=== PATIENT | male | born 1935 | race Caucasian/White ===

== ENCOUNTER 2020-06-09 12:53 | Observation (INO) | payer MEDICARE, SELFPAY ==
[2020-06-09 12:59] VITALS: BP 144/108; PULSE 73; RESP 20; TEMP 37; O2SAT 97
[2020-06-09 13:59] LABS: Basophils Absolute Auto 0.1 K/mm3 (0.0-0.1); Basophils Percent Auto 0.6 % (0.2-1.2); Eosinophils Absolute Auto 0.3 K/mm3 (0-0.3); Eosinophils Percent Auto 3.1 % (0-4.4); Hematocrit 35.3 % (42.0-52.0); Hemoglobin 11.9 g/dL (14.0-18.0); Immature Granulocyte Absolute 0.02 K/mm3 (0.00-0.031); Immature Granulocyte Percent A 0.2 % (0-0.5); Lymphocytes Absolute Auto 1.89 K/mm3 (0.9-3.2); Lymphocytes Percent Auto 20.2 % (18.3-44.2); Mean Corpuscular HGB Conc 33.7 g/dl (32-36); Mean Corpuscular Hemoglobin 32.5 pg (26-34); Mean Corpuscular Volume 96.4 fl (80-100); Mean Platelet Volume 11.4 fl (7.4-10.4); Monocytes Absolute Auto 0.8 K/mm3 (0.1-0.6); Monocytes Percent Auto 8.4 % (2.6-8.5); Neutrophils Absolute Auto 6.3 K/mm3 (1.3-6.7); Neutrophils Percent Auto 67.5 % (45.5-73.1); Platelet Count Result 146 k/mm3 (150-375); Red Blood Count 3.66 M/mm3 (4.6-6.20); Red Cell Distribution Width 12.7 % (11.5-14.5); White Blood Count 9.4 K/mm3 (4.5-10.0)
[2020-06-09] MEDS: SODIUM CHLORIDE 0.9% IV 500 ML 999 ML IV CONT (13:59)
[2020-06-09] MEDS: ceFAZolin SODIUM 1 GM VIAL IV PUSH (13:59)
[2020-06-09 14:15] LABS: Alanine Aminotransferase 18 U/L (4-50); Albumin Level 4.3 g/dL (3.5-5.1); Alkaline Phosphatase 98 U/L (38-126); Anion Gap 7 mmol/L (8-16); Aspartate Amino Transferase 31 U/L (17-59); Bilirubin,Total 0.5 mg/dL (0.2-1.3); Blood Urea Nitrogen 19 mg/dL (9-20); CRP 1.9 mg/dL (<1.0); Carbon Dioxide 26 mmol/L (22-30); Chloride 101 mmol/L (98-107); Estimated CRCL calculation 64 ml/min; Estimated Glomerular Filt Rate > 60; Glucose 107 mg/dL (75-110); Potassium 4.4 mmol/L (3.4-5.0); Sodium 134 mmol/L (137-145)
--- NOTE | 2020-06-09 14:51 | PC.NURSE ---
MANSOOR SHAFER AT BEDSIDE TO NUMB PT FINGER.
[2020-06-09 15:13] VITALS: BP 157/98; PULSE 78; RESP 16; O2SAT 100
--- NOTE | 2020-06-09 15:36 | ED.SKABFB ---
HPI - Skin/Abscess/Foreign Bdy General Chief complaint: Skin/Abscess/Foreign Body <Stephen Purdy PA-C - Last Filed: 06/09/20 15:39> Stated complaint: Blister to Finger <MIGUEL Tyler Last Filed: 06/09/20 15:39> Time Seen by Provider: 06/09/20 13:07 <MIGUEL Tyler Last Filed: 06/09/20 15:39> Source: patient <MIGUEL Tyler Last Filed: 06/09/20 15:39> Mode of arrival: ambulatory <MIGUEL Tyler Last Filed: 06/09/20 15:39> Limitations: no limitations <MIGUEL Tyler Last Filed: 06/09/20 15:39> History of Present Illness HPI narrative: Patient is an 84-year-old male who presents to emergency department for evaluation of infected left finger patient notes red tender swollen area involving the proximal phalanx of the right index finger patient was seen over the weekend started on Keflex but continues to have redness swelling and now streaking up the arm. Patient notes some purulent drainage from the wound. Patient denies fever or immunocompromise <MIGUEL Tyler Last Filed: 06/09/20 15:39> Related Data Home medications: Home Medications Medication Instructions Recorded Confirmed Ca cmb no.[id number]-[id number] tablet PO 06/09/20 [Vitamin D-3 with Aloe] atorvastatin 20 mg PO DAILY 06/09/20 06/09/20 losartan 50 mg PO DAILY 06/09/20 06/09/20 memantine [Namenda Titration Luc] 0 ea PO BID 06/09/20 metoprolol succinate 12.5 mg PO DAILY 06/09/20 06/09/20 omeprazole 40 mg PO DAILY 06/09/20 06/09/20 vitamin B complex [B 1 tablet PO DAILY 06/09/20 06/09/20 Complex-Vitamin B12] vitamins A,C,[id number] [ICaps 1 tablet PO ONCE 06/09/20 06/09/20 AREDS] <MIGUEL Tyler Last Filed: 06/09/20 15:39> Allergies/Adverse reactions: Allergies Allergy/AdvReac Type Severity Reaction Status Date / Time ibuprofen Allergy Unknown Rash Verified 06/09/20 13:03 naproxen Allergy Unknown Rash Verified 06/09/20 15:43 Sulfa (Sulfonamide Allergy Unknown Unknown Verified 06/09/20 13:03 Antibiotics) floxacin AdvReac Rash Uncoded 06/09/20 18:19 <Stephen Purdy PA-C - Last Filed: 06/09/20 15:39> Review of Systems Review of Systems: All systems reviewed & are unremarkable except as noted in HPI and below <Stephen Purdy PA-C - Last Filed: 06/09/20 15:39> PMFSH Past Medical History Medical History: Medical History (Updated 06/09/20 @ 15:39 by Stephen Purdy PA-C) Hypertension <Stephen Purdy PA-C - Last Filed: 06/09/20 15:39> Social History Social History: Social History (Updated 06/09/20 @ 15:37 by Stephen Purdy PA-C) Smoking status: Former smoker Tobacco type: cigarettes Second hand tobacco smoke exposure: No Alcohol intake: current Substance use: never Gender identity (if verbalized by the patient): Male Sexual Orientation (if Verbalized by the Patient): Straight or Heterosexual Spiritual care concerns: No <MIGUEL Tyler Last Filed: 06/09/20 15:39> Exam Narrative: Exam Narrative: GENERAL: Well-appearing, well-nourished, and in no acute distress. HEAD: Normocephalic, atraumatic. EYES: PERRLA and EOMI. ENT: Nares clear, no rhinorrhea or epistaxis. Mucous membranes moist. EXTREMITIES: Normal range of motion. No edema. SKIN: Warm, dry, no rash. Swollen red tender right index finger involving the proximal phalanx with drainage centrally lymphangitic streaking up to the mid forearm NEURO: No focal deficits. Alert and oriented x3. Neurovascularly intact PSYCH: Normal mood and affect. <MIGUEL Tyler Last Filed: 06/09/20 15:39> Course Course Emergency Course: Patient's finger was drained in the emergency department with I&D performed packing placed given IV antibiotic will be brought in for IV antibiotics given the failed outpatient therapy <Stephen Purdy PA-C - Last Filed: 06/09/20 15:39> MARKETING ASSISTANT MANAGER/PA Physician Supervision
[2020-06-09 17:07] VITALS: BP 157/98; PULSE 78; RESP 16; O2SAT 100
--- NOTE | 2020-06-09 17:17 | ADMGEN ---
This patient, Alfredo Morrissey, was admitted to 3 [facility] Surg Room 307-01. Patient/family oriented to hospital policies and general routines including ID bracelet, bed and alarms, visiting hours, pain management, procedures, bathroom and other care routines, personal items, smoking policy, room service/diet, and visiting hours. Valuables list has been completed. Information on how to activate the Rapid Response Team has been discussed. Patient/Family are encouraged to report perceived risks to care and to ask questions if they do not understand what they are told or what they should do.
[2020-06-09 17:29] VITALS: BMI 23.5
[2020-06-09] MEDS: LACTATED RINGERS 1,000 ML 75 ML IV CONT (19:01)
--- NOTE | 2020-06-09 21:21 | PM.IMHP ---
H&P: HPI History of Present Illness Date/Time: 06/09/20 21:21 Chief complaint: worsening finger infection Narrative: Alfredo Morrissey is a 84 year old male with a past medical history of dementia and hypertension who presented to the ER for evaluation of worsening infection in his left index finger. The patient had been evaluated at urgent care over the weekend and was started on Keflex for cellulitis. But back his finger has become more erythematous and swollen. He is streaking up the arm and drainage from the wound. He denies any fevers or chills. He reported that the wound started as a little pimple with some mild surrounding erythema. the pustule popped and he had some purulence drainage. The next day he went to urgent care (3 days ago) and received a prescription for Keflex. he initially thought his finger was doing better for the next 24 hours but then it became more erythematous any decided to come in to the ER. He denies any known injury to his and. he denies a history of recurrent infections. Otherwise he has been in his usual state of health. He does have chronic memory loss/ dementia. Patient is a relatively good historian regarding recent events but is unable to provide much history such as is family history. the patient had some moderate associated pain with the area of abscess that has improved. He still has some localized pain directly around area of erythema. Overall he reports that he feels much better. Prior to the abscess being drained any movement of the finger caused increased pain. Review of Systems Review of Systems: Narrative: 12 systems were reviewed with pertinent positives and negatives per HPI. Except as documented in the HPI, all other systems were reviewed and are negative. [facility] Past Medical History Medical History (Updated 06/10/20 @ 03:14 by Roseann Wills DO) Dementia GERD (gastroesophageal reflux disease) Hyperlipidemia Hypertension Left cataract maturing Surgical History Surgical History (Updated 06/10/20 @ 03:14 by Roseann Wills DO) History of left inguinal hernia repair History of umbilical hernia repair Status post cataract extraction and insertion of intraocular lens of right eye Family History Family History Mother Age older than 80 years Father MVA (motor vehicle accident) His father 2 months before patient was born. Social History Social History (Updated 06/10/20 @ 03:12 by MALOU Tam Social History: Primary care physician: Dr. Case Jacobsen Surrogate decision maker: Joanne Vaz (significant other) Smoking packs per day: 1 Smoking cigarettes per day: 20.0 Years smoked: 15 Smoking pack-years: 15.00 Smoking status: Former smoker Tobacco type: cigarettes Second hand tobacco smoke exposure: No Alcohol intake: current Alcohol use details: He rarely drinks alcohol. Substance use: never Additional living arrangements comments: He is but lives with his long-term girlfriend of the last 30 years. He has 2 adult children who are healthy. 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 His undergraduate degree was in math. His master's degree was in Estonian. Gender identity (if verbalized by the patient): Male Sexual Orientation (if Verbalized by the Patient): Straight or Heterosexual Spiritual care concerns: No Meds Home Medications and Allergies Home Medications Medication Instructions Recorded Confirmed Type Ca cmb no.[id number]-N-[id number]-aloe 1 tablet PO DAILY 06/09/20 06/09/20 History [Vitamin D-3 with Aloe] atorvastatin 20 mg PO DAILY 06/09/20 06/09/20 History cephalexin 500 mg PO BID 06/09/20 06/09/20 History losartan 25 mg PO DAILY 06/09/20 06/09/20 History memantine 10 mg PO BID 06/09/20 06/09/20 History metoprolol succinate 12.5 mg PO DAILY 06/09/20 06/09/20 History
[2020-06-09] MEDS: FAMOTIDINE 20 MG/2 ML VIAL IV PUSH (21:34)
[2020-06-09 22:00] VITALS: BP 112/65; PULSE 56; RESP 20; TEMP 36.6; O2SAT 99
[2020-06-10] VITALS (7 sets, daily range): BP systolic 110–138; BP diastolic 58–79; PULSE 55–73; RESP 16–20; TEMP 36.7–37; O2SAT 95–99
[2020-06-10 06:48] LABS: Basophils Percent Auto 0.6 % (0.2-1.2); Eosinophils Absolute Auto 0.3 K/mm3 (0-0.3); Hematocrit 32.9 % (42.0-52.0); Hemoglobin 11.1 g/dL (14.0-18.0); Immature Granulocyte Absolute 0.04 K/mm3 (0.00-0.031); Immature Granulocyte Percent A 0.6 % (0-0.5); Immature Platelet Fraction Pct 7.1 % (0.9-11.2); Lymphocytes Absolute Auto 1.72 K/mm3 (0.9-3.2); Lymphocytes Percent Auto 23.7 % (18.3-44.2); Mean Corpuscular HGB Conc 33.7 g/dl (32-36); Mean Corpuscular Hemoglobin 32.4 pg (26-34); Mean Corpuscular Volume 95.9 fl (80-100); Mean Platelet Volume 11.5 fl (7.4-10.4); Monocytes Absolute Auto 0.6 K/mm3 (0.1-0.6); Monocytes Percent Auto 7.9 % (2.6-8.5); Neutrophils Absolute Auto 4.6 K/mm3 (1.3-6.7); Neutrophils Percent Auto 63.2 % (45.5-73.1); Platelet Count Result 149 k/mm3 (150-375); Red Blood Count 3.43 M/mm3 (4.6-6.20); Red Cell Distribution Width 12.6 % (11.5-14.5); White Blood Count 7.3 K/mm3 (4.5-10.0)
[2020-06-10] MEDS: FAMOTIDINE 20 MG/2 ML VIAL IV PUSH ×2 (08:46→21:24)
[2020-06-10] MEDS: OPTI-GEN TAB 1 TABLET PO ×2 (08:46→16:30)
[2020-06-10] MEDS: ATORVASTATIN 20 MG TABLET PO (08:46)
[2020-06-10] MEDS: PANTOPRAZOLE 40 MG TABLET PO ×2 (08:46→16:30)
[2020-06-10] MEDS: MEMANTINE 10 MG TABLET PO ×2 (08:46→16:30)
[2020-06-10] MEDS: VITAMIN B COMPLEX CAPSULE 1 CAP PO (08:47)
[2020-06-10] MEDS: ENOXAPARIN 40 MG/0.4 ML SYRINGE SUB-Q (08:50)
[2020-06-10] MEDS: METOPROLOL SUCCINATE EXT REL 12.5 MG TABCR PO (10:01)
--- NOTE | 2020-06-10 15:38 | PM.IMPN ---
Progress Note: A&P Assessment and Plan (1) Abscess of finger: Code(s): L02.519 - Cutaneous abscess of unspecified hand Status: Acute Assessment and Plan: The patient presented with cellulitis with abscess of the right index finger on the dorsal aspect of the proximal phalange with associated streaking up the right arm. He failed outpatient keflex therapy. He underwent I&D in the emergency department and was subsequently admitted for IV antibiotics. WBC was normal at 9,400 at admission and improving. Erythema is improving with no further streaking although he does have mild erythema and warmth surrounding the site of I&D. He reports that his pain and swelling are improving. He is afebrile. I believe he will benefit from continued IV cefazolin overnight with hopeful discharge tomorrow on PO antibiotics. Continue to monitor. (2) Essential hypertension: Code(s): I10 - Essential (primary) hypertension Status: Chronic Assessment and Plan: Blood pressures were reviewed and are reasonably controlled. Continue losartan and metoprolol. Subjective Date/time seen: 06/10/20 15:38 Interval history: Mr. Morrissey is a very pleasant 84 y.o. male who is seen in follow-up for cellulitis with abscess of the right index finger s/p I&D in the emergency department. He reports improvement in his erythema, pain, and swelling. He denies fever, chills, nausea, vomiting, and weakness. He has no other concerns. Review of Systems Review of Systems: All systems reviewed & are unremarkable except as noted in HPI and below Exam Narrative: Exam Narrative: General: Very pleasant, elderly, well-developed 84 y.o. male ambulating in the room talking to his significant other in no acute distress. HEENT: Normocephalic and atraumatic. Oral mucosa moist. Neck: Supple. Cardiac: Regular rate and rhythm. S1 and S2 normal. Lungs: Lungs clear to auscultation. Abdomen: Normoactive bowel sounds. Abdomen protuberant but soft, non-distended, and non-tender. Musculoskeletal: No joint erythema, swelling, or tenderness. ROM within normal limits. Extremities: No lower extremity edema or calf tenderness. Neurological: Alert. Exam non-focal to casual conversation. Speech is clear. Skin: Warm and dry. Superficial incision at site of I&D open with no further purulence expressed. Mild erythema and calor surrounding opening at finger with no further streaking. Psychiatric: Judgment and insight intact. Pleasant mood and appropriate affect. Objective Data Vital Signs Vital Signs: Vital Signs - 24 hr 06/09/20 17:07 06/09/20 22:00 06/10/20 02:00 Temperature 97.8 F 98.2 F Pulse Rate 78 56 L 64 Respiratory Rate 16 20 20 Blood Pressure 157/98 H 112/65 120/58 L Pulse Oximetry 100 99 98 06/10/20 06:00 06/10/20 08:00 06/10/20 10:01 Temperature 98.6 F 98.0 F Pulse Rate 73 57 L 60 Respiratory Rate 16 16 Blood Pressure 110/58 L 130/69 Pulse Oximetry 98 95 06/10/20 12:00 Temperature 98.0 F Pulse Rate 55 L Respiratory Rate 18 Blood Pressure 138/79 Pulse Oximetry 97 Intake/Output Intake/Output: Intake & Output 06/07/20 06/08/20 06/09/20 06/10/20 23:59 23:59 23:59 23:59 Intake Total 1000 1320 Balance 1000 1320 Meds/Results Medications: Active Medications Generic Name Dose Route Start Last Admin Trade Name Freq PRN Reason Stop Dose Admin Acetaminophen 650 mg 06/09/20 21:27 Tylenol Tablet PO Q4H PRN Headache Atorvastatin Calcium 20 mg 06/10/20 09:00 06/10/20 08:46 Lipitor PO 20 mg DAILY REMI Administration Enoxaparin Sodium 40 mg 06/10/20 09:00 06/10/20 08:50 Lovenox SUB-Q 40 mg DAILY REMI Administration Famotidine 20 mg 06/09/20 21:00 06/10/20 08:46 Pepcid Iv IV PUSH 20 mg Q12HR REMI Administration Lactated Ringer's 1,000 mls @ 75 mls/hr 06/09/20 15:40 06/09/20 19:01 Lr - Lactated Ringers Iv IV CONT 75 mls/hr .[id number] REMI Administratio
[2020-06-11 02:00] VITALS: BP 121/68; PULSE 53; RESP 20; TEMP 36.9; O2SAT 99
[2020-06-11 06:00] VITALS: BP 119/71; PULSE 53; RESP 20; TEMP 36.9; O2SAT 99
[2020-06-11 07:02] LABS: Hematocrit 32.7 % (42.0-52.0); Hemoglobin 11.1 g/dL (14.0-18.0); Mean Corpuscular HGB Conc 33.9 g/dl (32-36); Mean Corpuscular Hemoglobin 32.4 pg (26-34); Mean Corpuscular Volume 95.3 fl (80-100); Mean Platelet Volume 11.8 fl (7.4-10.4); Platelet Count Result 134 k/mm3 (150-375); Red Blood Count 3.43 M/mm3 (4.6-6.20); Red Cell Distribution Width 12.5 % (11.5-14.5); White Blood Count 6.8 K/mm3 (4.5-10.0)
[2020-06-11] MEDS: ATORVASTATIN 20 MG TABLET PO (08:32)
[2020-06-11] MEDS: ENOXAPARIN 40 MG/0.4 ML SYRINGE SUB-Q (08:32)
[2020-06-11] MEDS: METOPROLOL SUCCINATE EXT REL 12.5 MG TABCR PO (08:33)
[2020-06-11] MEDS: MEMANTINE 10 MG TABLET PO (08:33)
[2020-06-11] MEDS: LOSARTAN POTASSIUM 25 MG TABLET PO (08:33)
[2020-06-11] MEDS: FAMOTIDINE 20 MG/2 ML VIAL IV PUSH (08:33)
[2020-06-11] MEDS: PANTOPRAZOLE 40 MG TABLET PO (08:33)
[2020-06-11] MEDS: VITAMIN B COMPLEX CAPSULE 1 CAP PO (08:33)
[2020-06-11] MEDS: OPTI-GEN TAB 1 TABLET PO (08:33)
--- NOTE | 2020-06-11 10:06 | PM.DS ---
DS: Admitting Diagnosis Admitting Diagnosis Admitting Diagnosis: Abscess cellulitis finger DS: Discharge Diagnosis Discharge Diagnosis (1) Abscess of finger: Code(s): L02.519 - Cutaneous abscess of unspecified hand Status: Acute Assessment and Plan: Mr. Morrissey is an 84 y.o. male with PMH significant for hyperlipidemia, dementia and hypertension who presented to the emergency department for the evaluation of worsening infection of his right index finger. He was treated outpatient 3 days prior to presentation with cephalexin but developed a skin abscess with increased erythema including streaking up the arm despite PO antibiotic therapy. Initial workup in the emergency department revealed WBC 9,400, Hb 11.9, Hct 35.3, platelets 146, sodium 134, potassium 4.4, chloride 101, CO2 26, BUN 19, Cr 0.9. He underwent I&D in the emergency department and was subsequently admitted for IV antibiotics. He remained afebrile and his erythema and pain improved significantly. He will be discharged home on PO doxycycine. Preliminary wound culture reveals no anaerobic growth. Aerobic culture is still pending. I advised that he will be notified if his antibiotics need to be changed based on culture results. He was advised to follow-up with his PCP within 1 week to ensure improvement. I discussed that he should call his PCP with any concerns or failure to improve immediately. He verbalized understanding of the plan of care and was discharged in stable condition on the morning of 06/11/20. (2) Essential hypertension: Code(s): I10 - Essential (primary) hypertension Status: Chronic Assessment and Plan: Blood pressures were reviewed and are reasonably controlled. Losartan and metoprolol were continued. DS: Summary Time Spent with Patient Time attestation: Total time spent providing and/or coordinating discharge services: 25 minutes Exam Narrative: Exam Narrative: Vitals at presentation: Temp Pulse Resp BP Pulse Ox 98.6 F 73 20 144/108 H 97 06/09/20 12:59 06/09/20 12:59 06/09/20 12:59 06/09/20 12:59 06/09/20 12:59 Vitals at discharge: Temp Pulse Resp BP Pulse Ox 98.5 F 53 L 20 119/71 99 06/11/20 06:00 06/11/20 06:00 06/11/20 06:00 06/11/20 06:00 06/11/20 06:00 General: Pleasant elderly 84 y.o. male lying supine in no acute distress. HEENT: Normocephalic and atraumatic. Oral mucosa moist. Neck: Supple. Cardiac: Regular rate and rhythm. S1 and S2 normal. Lungs: Lungs clear to auscultation. Abdomen: Normoactive bowel sounds. Abdomen protuberant, soft, non-tender, and non-distended with no rebound or guarding. Extremities: No lower extremity edema. Calf tenderness negative. Good ROM of the right index finger with no significant pain or bony tenderness. Skin: Warm and dry. Healed scab at site of I&D. No fluctuance or purulences. Mild erythema and calor surrounding opening which has improved. Psychiatric: Judgment and insight intact. Pleasant mood and appropriate affect. DS: Data Data Completed and Pending Labs on day of discharge: Labs from last 24 hours 06/11/20 06:19 WBC 6.8 RBC 3.43 L Hgb 11.1 L Hct 32.7 L MCV 95.3 MCH 32.4 MCHC 33.9 RDW 12.5 Plt Count 134 L MPV 11.8 H Preliminary micro results at discharge 06/09/20 16:14 Anaerobic Culture - Preliminary Abscess Discharge Plan Discharge Attending physician on discharge: Robin Stovall Consulting providers: ; Stephen Purdy Discharging Clinician: Sarah Dixon Patient Disposition: Home, Self-Care Activity: as tolerated Diet: heart healthy Discharge Instructions: Hospital Discharge Instructions You were hospit
--- NOTE | 2020-06-11 12:18 | PC.NURSE ---
Pt has discharge orders. Pt's IV has been removed, and discharge paperwork has been reviewed with him and his sig other. Opportunities for questions was provided, and both exhibited a good understanding of discharge instructions. Pt ambulated to the elevator to leave, with sig other.
== END 2020-06-11 12:20 | disposition home or self-care (01) ==
LOC: ANHED 15:39 → ANH3MEDSUR 16:41
PROVIDERS: Emergency Medicine Emergency Medical Services; Admitting Provider Internal Medicine; Emergency Provider General Practice; Visit Provider Physician Assistant
DX: L02.511 Cutaneous abscess of right hand (principal); I10 Essential (primary) hypertension; E78.5 Hyperlipidemia, unspecified; F03.90 Unspecified dementia, unspecified severity, without behavioral disturbance, psychotic disturbance, mood disturbance, and anxiety
CPT/HCPCS: 26010; 36415; 80053; 85025; 85027; 85055; 86140; 87070; 87075; 87147; 87186; 87205; 96361; 96365; 96366; 96372; 96375; 96376; 99285; A9270; G0378; J0131; J0690; J1650; J7040; J7120

== ENCOUNTER 2021-03-04 11:29 | Emergency (ER) | payer MEDICARE, SELFPAY ==
[2021-03-04 11:40] VITALS: BP 112/54; PULSE 60; RESP 18; TEMP 35.9; O2SAT 98
--- NOTE | 2021-03-04 12:29 | ED.EYEPROB ---
HPI - Eye Problem General Chief complaint: Eye Problems Stated complaint: Right eye pain Time Seen by Provider: 03/04/21 12:15 Source: patient Mode of arrival: ambulatory Limitations: no limitations History of Present Illness HPI Narrative: Alfredo Morrissey is a 85 yo male with PMH of high cholesterol, HTN, dementia, [facility] of a foreign object in his right eye that started last night which was quite painful but today he has been trying to flush it out and picking on his eye; denies pain now but feels irritated- like something in it Related Data Home Medications Medication Instructions Recorded Confirmed ICaps AREDS 1 cap PO BID 06/09/20 06/09/20 Vitamin D-3 with Aloe 1 tablet PO DAILY 06/09/20 06/09/20 atorvastatin 20 mg PO DAILY 06/09/20 06/09/20 losartan 25 mg PO DAILY 06/09/20 06/09/20 memantine 10 mg PO BID 06/09/20 06/09/20 metoprolol succinate 12.5 mg PO DAILY 06/09/20 06/09/20 omeprazole 40 mg PO BID 06/09/20 06/09/20 vitamin B complex [B 1 tablet PO DAILY 06/09/20 06/09/20 Complex-Vitamin B12] donepezil mg 03/04/21 metoprolol succinate PO 03/04/21 sildenafil 03/04/21 Allergies Allergy/AdvReac Type Severity Reaction Status Date / Time ibuprofen Allergy Unknown Rash Verified 06/09/20 13:03 naproxen Allergy Unknown Rash Verified 06/09/20 15:43 Sulfa (Sulfonamide Allergy Unknown Unknown Verified 06/09/20 13:03 Antibiotics) ciprofloxacin AdvReac Unknown Rash Verified 06/09/20 21:28 Review of Systems Review of Systems: Narrative: CONSTITUTIONAL: Denies fever, chills, sweats. EYES: Denies visual changes, redness, discharge. R eye pain, irritation ENT: Denies rhinorrhea, congestion, sore throat, otalgia. CARDIOVASCULAR: Denies chest pain, palpitations, edema. RESPIRATORY: Denies dyspnea, wheezing, cough GASTROINTESTINAL: Denies abdominal pain, nausea, vomiting, diarrhea. GENITOURINARY: Denies dysuria, hematuria, abnormal discharge SKIN: Denies rash or itching. NEUROLOGIC: Denies numbness, or focal weakness. PSYCHIATRIC: Denies anxiety or depression. [facility] Past Medical History Medical History Dementia GERD (gastroesophageal reflux disease) Hyperlipidemia Hypertension Left cataract maturing Surgical History Surgical History History of left inguinal hernia repair History of umbilical hernia repair Status post cataract extraction and insertion of intraocular lens of right eye Family History Family History Mother Age older than 80 years Father MVA (motor vehicle accident) His father 2 months before patient was born. Social History Social History Social History: Primary care physician: Dr. Case Jacobsen Surrogate decision maker: Joanne Vaz (significant other) Smoking packs per day: 1 Smoking cigarettes per day: 20.0 Years smoked: 15 Smoking pack-years: 15.00 Smoking status: Former smoker Tobacco type: cigarettes Second hand tobacco smoke exposure: No Alcohol intake: current Substance use: never Additional living arrangements comments: He is but lives with his long-term girlfriend of the last 30 years. He has 2 adult children who are healthy. 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 His undergraduate degree was in math. His master's degree was in Swazi. Gender identity (if verbalized by the patient): Male Spiritual care concerns: No Comments At time of signature, I agree with nursing past medical, surgical, social and family history. There is no relevant family history pertinent to the presenting complaint. Exam Narrative: Exam Narrative: GENERAL: This is a well-nourished, well-developed patient, in mild distress.
--- NOTE | 2021-03-04 12:42 | PC.NURSE ---
eye exam was done by syruper with rn assist. tolerated well.
== END 2021-03-04 12:48 | disposition home or self-care (01) ==
PROVIDERS: Emergency Provider Nurse Practitioner
DX: S05.01XA Injury of conjunctiva and corneal abrasion without foreign body, right eye, initial encounter (principal); X58.XXXA Exposure to other specified factors, initial encounter; F03.90 Unspecified dementia, unspecified severity, without behavioral disturbance, psychotic disturbance, mood disturbance, and anxiety; K21.9 Gastro-esophageal reflux disease without esophagitis; E78.5 Hyperlipidemia, unspecified; Z98.41 Cataract extraction status, right eye; Z96.1 Presence of intraocular lens; Z87.891 Personal history of nicotine dependence; E78.00 Pure hypercholesterolemia, unspecified
CPT/HCPCS: 99213; A9270; G0463

== ENCOUNTER 2021-03-26 08:15 | Emergency (ER) | payer MEDICARE, SELFPAY ==
[2021-03-26 08:27] VITALS: BP 114/66; PULSE 65; RESP 18; TEMP 37; O2SAT 98
[2021-03-26] MEDS: TETANUS,DIPHTHERIA,AC PERTUSSIS ADULT (0.5 ML) BOOSTRIX IM (08:32)
--- NOTE | 2021-03-26 08:41 | ED.SKABFB ---
HPI - Skin/Abscess/Foreign Bdy General Chief complaint: Skin/Abscess/Foreign Body Stated complaint: Wound on left leg Source: patient and RN notes reviewed Limitations: no limitations History of Present Illness HPI narrative: The Covid vaccinated patient, on several meds not diabetes, presents with skin abrasion. Patient states presents with a left javier abrasion that occurred to 3 days ago, worse with palpation, better with elevation, on home furnishings. No redness, discharge, he had prior history of cellulitis he is concerned about. Related Data Home Medications Medication Instructions Recorded Confirmed ICaps AREDS 1 cap PO BID 06/09/20 03/26/21 Vitamin D-3 with Aloe 1 tablet PO DAILY 06/09/20 03/26/21 atorvastatin 20 mg PO DAILY 06/09/20 03/26/21 losartan 25 mg PO DAILY 06/09/20 03/26/21 memantine 10 mg PO BID 06/09/20 03/26/21 metoprolol succinate 12.5 mg PO DAILY 06/09/20 03/26/21 omeprazole 40 mg PO BID 06/09/20 03/26/21 vitamin B complex [B 1 tablet PO DAILY 06/09/20 03/26/21 Complex-Vitamin B12] donepezil 5 mg PO DAILY 03/04/21 03/26/21 metoprolol succinate 25 mg PO DAILY 03/04/21 03/26/21 sildenafil 50 mg PO PRN PRN 03/04/21 03/26/21 Allergies Allergy/AdvReac Type Severity Reaction Status Date / Time ibuprofen Allergy Unknown Rash Verified 03/26/21 08:18 naproxen Allergy Unknown Rash Verified 03/26/21 08:18 Sulfa (Sulfonamide Allergy Unknown Unknown Verified 03/26/21 08:18 Antibiotics) ciprofloxacin AdvReac Unknown Rash Verified 03/26/21 08:18 Review of Systems Review of Systems: Narrative: General/Constitutional: No weight loss,fever Eyes: N0: Redness,discharge Ears/Nose/Throat: No: Epistaxis,ear discharge Respiratory: Denies: Hemoptysis Gastrointestinal: No Vomiting, Bleeding-rectal Skin: No Lumps, eruption Neurologic: No Focal Weakness,Sz Hematologic: Denies: Petechiae/Purpura Psychiatric: No: Suicida ideationl All Other Systems: Reviewed and Negative PMF Past Medical History Medical History Dementia GERD (gastroesophageal reflux disease) Hyperlipidemia Hypertension Left cataract maturing Surgical History Surgical History History of left inguinal hernia repair History of umbilical hernia repair Status post cataract extraction and insertion of intraocular lens of right eye Family History Family History Mother Age older than 80 years Father MVA (motor vehicle accident) His father 2 months before patient was born. Social History Social History Social History: Primary care physician: Dr. Case Jacobsen Surrogate decision maker: Joanne Vaz (significant other) Smoking packs per day: 1 Smoking cigarettes per day: 20.0 Years smoked: 15 Smoking pack-years: 15.00 Smoking status: Former smoker Tobacco type: cigarettes Second hand tobacco smoke exposure: No Alcohol intake: current Substance use: never Additional living arrangements comments: He is but lives with his long-term girlfriend of the last 30 years. He has 2 adult children who are healthy. 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 His undergraduate degree was in math. His master's degree was in Syriac. Gender identity (if verbalized by the patient): Male Spiritual care concerns: No Comments At time of signature, agree with nursing past medical, surgical, social and family history. There is no relevant family history pertinent to the presenting complaint Exam Narrative: Exam Narrative: General Appearance: Well-nourished, Normocephalic, Conjunctiva clear Ear: External ear normal Nose: Normal nose, Nare clear Mouth/Throat: Normal appearing Supple Skin: Warm, Dry, only fairly hea
== END 2021-03-26 08:48 | disposition home or self-care (01) ==
PROVIDERS: Emergency Provider Emergency Medicine
DX: S80.812A Abrasion, left lower leg, initial encounter (principal); X58.XXXA Exposure to other specified factors, initial encounter; Z87.891 Personal history of nicotine dependence; F03.90 Unspecified dementia, unspecified severity, without behavioral disturbance, psychotic disturbance, mood disturbance, and anxiety; K21.9 Gastro-esophageal reflux disease without esophagitis; E78.5 Hyperlipidemia, unspecified; I10 Essential (primary) hypertension; H26.9 Unspecified cataract; Z98.41 Cataract extraction status, right eye
CPT/HCPCS: 90471; 90715; 99213; G0463

== ENCOUNTER 2021-06-09 13:35 | Emergency (ER) | payer MEDICARE, SELFPAY ==
--- NOTE | ~2021-06-09 | XR_ITS ---
EXAMINATION: XR chest 2V DATE: 06/09/2021 14:15 INDICATION: Left chest pain. TECHNIQUE: Frontal and lateral views of the chest were obtained on 3 radiographs. COMPARISON: Chest 2 views 11/25/2015 FINDINGS: The lungs are hyperexpanded, consistent with emphysema. There is mild scarring at the lung apices. There is bandlike scarring in left mid and lower lung zones. No pleural effusion or pneumotho rax. The heart size is normal. IMPRESSION: 1. Emphysema and mild lung scarring. Reviewed, dictated and finalized at location A.
[2021-06-09 13:51] VITALS: BP 110/67; PULSE 55; RESP 20; TEMP 36.4; O2SAT 98
--- NOTE | 2021-06-09 13:53 | ECG_ITS ---
Measurements Intervals [place] Rate: 54 P: 86 LA: 338 QRS: 71 QRSD: 97 T: 47 QT: 415 QTc: 396 Interpretive Statements SINUS BRADYCARDIA WITH FIRST DEGREE AV BLOCK ABNORMAL ECG Electronically Signed On 06-09-2021 17:19:03 CDT by Shad Cuello D.O.
--- NOTE | 2021-06-09 14:28 | ED.CHESTPAIN ---
HPI - Chest Pain General Chief Complaint: Chest Pain Stated Complaint: Chest Pain Time Seen by Provider: 06/09/21 14:28 Source: patient Mode of arrival: ambulatory Limitations: no limitations History of Present Illness HPI narrative: Alfredo Morrissey is an 85 yo male with a PMH of dementia, high cholesterol, high blood pressure, GERD, who comes to [facility] with complaints of chest pain that started yesterday and that it only occurs when he takes deep breaths its not spontaneous does not wake him at night. Related Data Home Medications Medication Instructions Recorded Confirmed ICaps AREDS 1 cap PO BID 06/09/20 03/26/21 Vitamin D-3 with Aloe 1 tablet PO DAILY 06/09/20 03/26/21 atorvastatin 20 mg PO DAILY 06/09/20 03/26/21 losartan 25 mg PO DAILY 06/09/20 03/26/21 memantine 10 mg PO BID 06/09/20 03/26/21 metoprolol succinate 12.5 mg PO DAILY 06/09/20 03/26/21 omeprazole 40 mg PO BID 06/09/20 03/26/21 vitamin B complex [B 1 tablet PO DAILY 06/09/20 03/26/21 Complex-Vitamin B12] donepezil 5 mg PO DAILY 03/04/21 03/26/21 metoprolol succinate 25 mg PO DAILY 03/04/21 03/26/21 sildenafil 50 mg PO PRN PRN 03/04/21 03/26/21 Allergies Allergy/AdvReac Type Severity Reaction Status Date / Time ibuprofen Allergy Unknown Rash Verified 03/26/21 08:18 naproxen Allergy Unknown Rash Verified 03/26/21 08:18 Sulfa (Sulfonamide Allergy Unknown Unknown Verified 03/26/21 08:18 Antibiotics) ciprofloxacin AdvReac Unknown Rash Verified 03/26/21 08:18 Review of Systems Review of Systems: CONSTITUTIONAL: Denies fever, chills, sweats. EYES: Denies visual changes, redness, discharge. ENT: Denies rhinorrhea, congestion, sore throat, otalgia. CARDIOVASCULAR: Denies chest pain, palpitations, edema. RESPIRATORY: Denies dyspnea, wheezing, cough; pressure when takes deep breath GASTROINTESTINAL: Denies abdominal pain, nausea, vomiting, diarrhea. GENITOURINARY: Denies dysuria, hematuria, abnormal discharge SKIN: Denies rash or itching. NEUROLOGIC: Denies numbness, or focal weakness. PSYCHIATRIC: Denies anxiety or depression. [facility] Past Medical History Medical History Dementia GERD (gastroesophageal reflux disease) Hyperlipidemia Hypertension Left cataract maturing Surgical History Surgical History History of left inguinal hernia repair History of umbilical hernia repair Status post cataract extraction and insertion of intraocular lens of right eye Family History Family History Mother Age older than 80 years Father MVA (motor vehicle accident) His father 2 months before patient was born. Social History Social History Social History: Primary care physician: Dr. Case Jacobsen Surrogate decision maker: Joanne Vaz (significant other) Smoking packs per day: 1 Smoking cigarettes per day: 20.0 Years smoked: 15 Smoking pack-years: 15.00 Smoking status: Former smoker Tobacco type: cigarettes Second hand tobacco smoke exposure: No Alcohol intake: current Alcohol use details: He rarely drinks alcohol. Substance use: never Additional living arrangements comments: He is but lives with his long-term girlfriend of the last 30 years. He has 2 adult children who are healthy. 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 His undergraduate degree was in math. His master's degree was in [place]o. Gender identity (if verbalized by the patient): Male Spiritual care concerns: No Comments At time of signature, I agree with nursing past medical, surgical, social and family history. There is no relevant family history pertinent to the presenting complaint. Exam Narrative: GENERAL: This is a well-nourished,
--- NOTE | 2021-06-09 15:16 | PC.NURSE ---
1500 pt declines ED tranfers by sig other or EMS
== END 2021-06-09 15:20 | disposition left against medical advice (07) ==
PROVIDERS: Emergency Provider Nurse Practitioner
DX: R07.89 Other chest pain (principal); Z87.891 Personal history of nicotine dependence; F03.90 Unspecified dementia, unspecified severity, without behavioral disturbance, psychotic disturbance, mood disturbance, and anxiety; K21.9 Gastro-esophageal reflux disease without esophagitis; E78.5 Hyperlipidemia, unspecified; I10 Essential (primary) hypertension; H26.9 Unspecified cataract; E78.00 Pure hypercholesterolemia, unspecified
CPT/HCPCS: 71046; 93005; 99213; G0463

== ENCOUNTER 2021-06-09 17:07 | Emergency (ER) | payer MEDICARE, SELFPAY ==
--- NOTE | 2021-06-09 17:10 | ECG_ITS ---
Measurements Intervals [place] Rate: 60 P: 91 [place]: 310 QRS: 53 QRSD: 93 T: 30 QT: 413 QTc: 413 Interpretive Statements SINUS RHYTHM WITH FIRST DEGREE AV BLOCK BASELINE ARTIFACT- I, II, III, AVF ABNORMAL ECG Electronically Signed On 06-09-2021 19:39:22 CDT by Shad Cuello D.O.
[2021-06-09 17:17] VITALS: BP 125/68; PULSE 59; RESP 19; TEMP 36.9; O2SAT 97
[2021-06-09 17:35] LABS: Basophils Absolute Auto 0.1 K/mm3 (0.0-0.1); Basophils Percent Auto 0.6 % (0.2-1.2); Eosinophils Absolute Auto 0.5 K/mm3 (0-0.3); Eosinophils Percent Auto 6.2 % (0-4.4); Hematocrit 36.1 % (42.0-52.0); Hemoglobin 11.9 g/dL (14.0-18.0); Immature Granulocyte Absolute 0.03 K/mm3 (0.00-0.031); Immature Granulocyte Percent A 0.4 % (0-0.5); Lymphocytes Absolute Auto 2.26 K/mm3 (0.9-3.2); Mean Corpuscular Hemoglobin 32.1 pg (26-34); Mean Corpuscular Volume 97.3 fl (80-100); Mean Platelet Volume 11.4 fl (7.4-10.4); Monocytes Absolute Auto 0.5 K/mm3 (0.1-0.6); Monocytes Percent Auto 6.7 % (2.6-8.5); Neutrophils Absolute Auto 4.7 K/mm3 (1.3-6.7); Neutrophils Percent Auto 58.1 % (45.5-73.1); Platelet Count Result 175 k/mm3 (150-375); Red Blood Count 3.71 M/mm3 (4.6-6.20); Red Cell Distribution Width 13.1 % (11.5-14.5); White Blood Count 8.1 K/mm3 (4.5-10.0)
[2021-06-09 18:01] LABS: INR 1.1; Prothrombin Time 13.6 Seconds (11.1-14.7)
[2021-06-09 18:03] LABS: Partial Thromboplastin Time 25.6 SECONDS (22.3-36.8)
[2021-06-09 18:44] LABS: Anion Gap 10 mmol/L (8-16); Blood Urea Nitrogen 23 mg/dL (9-20); Carbon Dioxide 22 mmol/L (22-30); Chloride 107 mmol/L (98-107); Estimated CRCL calculation 52 ml/min; Estimated Glomerular Filt Rate > 60; Glucose 114 mg/dL (65-110); Potassium 4.4 mmol/L (3.4-5.0); Sodium 139 mmol/L (137-145)
--- NOTE | 2021-06-09 18:46 | ED.CHESTPAIN ---
HPI - Chest Pain General Chief Complaint: Chest Pain Stated Complaint: chest pain Time Seen by Provider: 06/09/21 18:46 History of Present Illness HPI narrative: Sharp pain in the left side of his chest with deep breathing and certain movements of the arm. Started last night. Improved somewhat sine that time. Occasional mild cough. No SOB, fever, nausea, vomiting. Related Data Home Medications Medication Instructions Recorded Confirmed ICaps AREDS 1 cap PO BID 06/09/20 03/26/21 Vitamin D-3 with Aloe 1 tablet PO DAILY 06/09/20 03/26/21 atorvastatin 20 mg PO DAILY 06/09/20 03/26/21 losartan 25 mg PO DAILY 06/09/20 03/26/21 memantine 10 mg PO BID 06/09/20 03/26/21 metoprolol succinate 12.5 mg PO DAILY 06/09/20 03/26/21 omeprazole 40 mg PO BID 06/09/20 03/26/21 vitamin B complex [B 1 tablet PO DAILY 06/09/20 03/26/21 Complex-Vitamin B12] donepezil 5 mg PO DAILY 03/04/21 03/26/21 metoprolol succinate 25 mg PO DAILY 03/04/21 03/26/21 sildenafil 50 mg PO PRN PRN 03/04/21 03/26/21 Allergies Allergy/AdvReac Type Severity Reaction Status Date / Time ibuprofen Allergy Unknown Rash Verified 06/09/21 18:35 naproxen Allergy Unknown Rash Verified 06/09/21 18:35 Sulfa (Sulfonamide Allergy Unknown Unknown Verified 06/09/21 18:35 Antibiotics) ciprofloxacin AdvReac Unknown Rash Verified 06/09/21 18:35 Review of Systems Review of Systems: All systems reviewed & are unremarkable except as noted in HPI and below Constitutional: Constitutional: Denies chills and Denies fever(s) ENT: Denies sore throat Cardiovascular: Cardiovascular: Reports as per HPI Respiratory: Respiratory: Reports as per HPI Gastrointestinal: Gastrointestinal: Reports no additional gastrointestinal complaints Neurologic: Reports system reviewed and no additional complaints, except as documented PMFSH Past Medical History Medical History Dementia GERD (gastroesophageal reflux disease) Hyperlipidemia Hypertension Left cataract maturing Surgical History Surgical History History of left inguinal hernia repair History of umbilical hernia repair Status post cataract extraction and insertion of intraocular lens of right eye Family History Family History Mother Age older than 80 years Father MVA (motor vehicle accident) His father 2 months before patient was born. Social History Social History Social History: Primary care physician: Dr. Case Jacobsen Surrogate decision maker: Joanne Umanzorbert (significant other) Smoking packs per day: 1 Smoking cigarettes per day: 20.0 Years smoked: 15 Smoking pack-years: 15.00 Smoking status: Former smoker Tobacco type: cigarettes Second hand tobacco smoke exposure: No Alcohol intake: current Alcohol use details: He rarely drinks alcohol. Substance use: never Additional living arrangements comments: He is but lives with his long-term girlfriend of the last 30 years. He has 2 adult children who are healthy. 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 His undergraduate degree was in math. His master's degree was in [place]. Gender identity (if verbalized by the patient): Male Spiritual care concerns: No Exam Const: General: no acute distress and alert Nutritional Appearance: thin Orientation/consciousness: patient oriented x3 HENMT: Head: normal to inspection Neck: Neck: normal visual inspection Chest: Chest palpation & inspection: no tenderness Resp: Effort & Inspection: normal respiratory effort Other: coarse breath sounds Cardio: Jugular venous distension: no JVD Rate: bradycardic Rhythm: regular rhythm Heart sounds: no murmurs GI: Inspection: non-di
[2021-06-09 18:56] LABS: Troponin I < 0.012 ng/mL (0.000-0.034)
[2021-06-09 19:14] VITALS: PULSE 52; RESP 14
[2021-06-09] MEDS: IPRATROPIUM BR 0.02% INH SOLN 0.5 MG/2.5 ML VIAL INHALATION (19:14)
[2021-06-09] MEDS: ALBUTEROL SULFATE NEB 2.5 MG/0.5 ML INH 5 MG INHALATION (19:14)
[2021-06-09 19:26] VITALS: PULSE 51; RESP 13
[2021-06-09 20:27] VITALS: BP 126/68; PULSE 60; RESP 18; O2SAT 99
== END 2021-06-09 20:29 | disposition home or self-care (01) ==
LOC: ANHED 19:36
PROVIDERS: Emergency Provider Emergency Medicine
DX: R07.1 Chest pain on breathing (principal); F03.90 Unspecified dementia, unspecified severity, without behavioral disturbance, psychotic disturbance, mood disturbance, and anxiety; K21.9 Gastro-esophageal reflux disease without esophagitis; E78.5 Hyperlipidemia, unspecified; I10 Essential (primary) hypertension; H26.9 Unspecified cataract; Z98.41 Cataract extraction status, right eye; Z87.891 Personal history of nicotine dependence; I44.0 Atrioventricular block, first degree
CPT/HCPCS: 36415; 71046; 80048; 84484; 85025; 85610; 85730; 93005; 94640; 99284

== ENCOUNTER 2022-05-15 17:42 | Emergency (ER) | payer MEDICARE, SELFPAY ==
--- NOTE | ~2022-05-15 | XR_ITS ---
XR chest 2V DATE: 05/15/2022 18:14 INDICATION: Dizziness for 4 days. History of hypertension. TECHNIQUE: AP and lateral views COMPARISON: 06/09/2021 2 view chest FINDINGS: Bilateral hyperinflation and relative flattening of the diaphragm, consistent with COPD. Chronic discoid scarring in the left mid and lower lung. No interval pulmonary infiltrate or consolid ation, pleural effusion or pulmonary vascular congestion or pneumothorax is detected. There is osteopenia. There is dextroscoliosis and degenerative change of the thoracic spine. 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
[2022-05-15 17:48] VITALS: BP 107/60; PULSE 64; RESP 17; TEMP 36.8; O2SAT 98
--- NOTE | 2022-05-15 17:53 | ECG_ITS ---
Measurements Intervals [place] Rate: 61 P: 85 OR: 324 QRS: 72 QRSD: 95 T: 50 QT: 391 QTc: 394 Interpretive Statements SINUS RHYTHM WITH FIRST DEGREE AV BLOCK COMPARED TO ECG 06/09/2021 17:21:52 NO SIGNIFICANT CHANGES Electronically Signed On 05-16-2022 11:59:52 CDT by Esteban Castanon M.D.
[2022-05-15 18:09] LABS: Basophils Absolute Auto 0.1 K/mm3 (0.0-0.1); Basophils Percent Auto 0.7 % (0.2-1.2); Eosinophils Absolute Auto 0.4 K/mm3 (0-0.3); Eosinophils Percent Auto 4.3 % (0-4.4); Hematocrit 38.8 % (42.0-52.0); Hemoglobin 12.5 g/dL (14.0-18.0); Immature Granulocyte Absolute 0.03 K/mm3 (0.00-0.031); Immature Granulocyte Percent A 0.3 % (0-0.5); Lymphocytes Absolute Auto 2.07 K/mm3 (0.9-3.2); Mean Corpuscular HGB Conc 32.2 g/dl (32-36); Mean Corpuscular Hemoglobin 31.5 pg (26-34); Mean Corpuscular Volume 97.7 fl (80-100); Mean Platelet Volume 10.9 fl (7.4-10.4); Monocytes Absolute Auto 0.6 K/mm3 (0.1-0.6); Monocytes Percent Auto 7.1 % (2.6-8.5); Neutrophils Absolute Auto 5.5 K/mm3 (1.3-6.7); Neutrophils Percent Auto 63.6 % (45.5-73.1); Platelet Count Result 160 k/mm3 (150-375); Red Blood Count 3.97 M/mm3 (4.6-6.20); White Blood Count 8.6 K/mm3 (4.5-10.0)
[2022-05-15 18:20] LABS: INR 1.1; Prothrombin Time 13.9 Seconds (11.1-14.7)
[2022-05-15 18:21] LABS: Alanine Aminotransferase 14 U/L (6-50); Albumin Level 4.5 g/dL (3.5-5.1); Alkaline Phosphatase 103 U/L (38-126); Anion Gap 11 mmol/L (8-16); Aspartate Amino Transferase 26 U/L (17-59); Bilirubin,Total 0.5 mg/dL (0.2-1.3); Blood Urea Nitrogen 19 mg/dL (9-20); Carbon Dioxide 29 mmol/L (22-30); Chloride 102 mmol/L (98-107); Estimated CRCL calculation 55 ml/min; Estimated Glomerular Filt Rate > 60; Glucose 94 mg/dL (65-110); Lipase 65 U/L (23-300); Partial Thromboplastin Time 25.5 SECONDS (22.3-36.8); Potassium 4.2 mmol/L (3.4-5.0); Sodium 142 mmol/L (137-145)
[2022-05-15 18:33] LABS: Troponin I < 0.012 ng/mL (0.000-0.034)
[2022-05-15 20:23] VITALS: BP 117/65; PULSE 52; RESP 18; TEMP 36.4; O2SAT 98
[2022-05-15 21:15] LABS: Troponin I < 0.012 ng/mL (0.000-0.034)
[2022-05-15 23:57] LABS: Troponin I < 0.012 ng/mL (0.000-0.034)
[2022-05-16] VITALS (9 sets, daily range): BP systolic 135–147; BP diastolic 75–88; PULSE 60–82; RESP 16; O2SAT 95–99
--- NOTE | 2022-05-16 03:09 | ED.DIZZY ---
HPI - Dizziness General Chief Complaint: Dizziness Stated Complaint: dizzy Time Seen by Provider: 05/16/22 02:47 History of Present Illness HPI Narrative: This is an 86-year-old male with past medical history of hypertension hyperlipidemia, who presents emergency department with 4 days worth of dizziness. He states he has had some lightheadedness, associated with walking, but no other symptoms. He denies chest pain, shortness of breath, abdominal pain, vomiting, dysuria, increased urinary frequency, fevers or chills. He denies known sick contacts. He is vaccinated for coronavirus. He has no other complaints today. Related Data Home Medications Medication Instructions Recorded Confirmed atorvastatin 20 mg tablet 20 mg PO DAILY 06/09/20 03/26/21 calcium cmb 1 tablet PO DAILY 06/09/20 03/26/21 [id number] 120 mg-1,000 unit-10 mg tablet (Vitamin D-3 with Aloe) losartan 50 mg tablet 25 mg PO DAILY 06/09/20 03/26/21 memantine 10 mg tablet 10 mg PO BID 06/09/20 03/26/21 metoprolol succinate 25 mg capsule 12.5 mg PO DAILY 06/09/20 03/26/21 sprinkle, ext. release 24 hr omeprazole 40 mg capsule,delayed 40 mg PO BID 06/09/20 03/26/21 release vitamin B complex (B 1 tablet PO DAILY 06/09/20 03/26/21 Complex-Vitamin B12 tablet) vitamins A,C,[id number]-zgcuaq 14,320 1 cap PO BID 06/09/20 03/26/21 unit-226 mg-200 unit capsule (ICaps AREDS) donepezil 5 mg tablet 5 mg PO DAILY 03/04/21 03/26/21 metoprolol succinate 25 mg 25 mg PO DAILY 03/04/21 03/26/21 tablet,extended release 24 hr sildenafil 50 mg tablet 50 mg PO PRN PRN Erectile 03/04/21 03/26/21 Dysfunction Allergies Allergy/AdvReac Type Severity Reaction Status Date / Time ibuprofen Allergy Unknown Rash Verified 05/16/22 03:02 naproxen Allergy Unknown Rash Verified 05/16/22 03:02 Sulfa (Sulfonamide Allergy Unknown Unknown Verified 05/16/22 03:02 Antibiotics) ciprofloxacin AdvReac Unknown Rash Verified 05/16/22 03:02 Review of Systems Review of Systems: CONSTITUTIONAL: Intermittent lightheadedness denies fever, chills, or sweats. EYES: Denies visual changes, redness, or discharge. ENT: Denies rhinorrhea, congestion, sore throat, or otalgia. CARDIOVASCULAR: Denies chest pain, palpitations, or edema. RESPIRATORY: Denies cough or dyspnea. GASTROINTESTINAL: Denies abdominal pain, nausea, vomiting, or diarrhea. GENITOURINARY: Denies dysuria or hematuria. SKIN: Denies rash or itching. MUSCULOSKELETAL: Denies back pain, joint pain, or myalgia. NEUROLOGIC: Denies headache, numbness, dizziness, or weakness. PSYCHIATRIC: Denies anxiety or depression. [facility] Past Medical History Medical History Dementia GERD (gastroesophageal reflux disease) Hyperlipidemia Hypertension Left cataract maturing Surgical History Surgical History History of left inguinal hernia repair History of umbilical hernia repair Status post cataract extraction and insertion of intraocular lens of right eye Family History Family History Mother Age older than 80 years Father MVA (motor vehicle accident) His father 2 months before patient was born. Social History Social History Social History: Primary care physician: Dr. Case Jacobsen Surrogate decision maker: Joanne Vaz (significant other) Smoking packs per day: 1 Smoking cigarettes per day: 20.0 Years smoked: 15 Smoking pack-years: 15.00 Smoking status: Former smoker Tobacco type: cigarettes Second hand tobacco smoke exposure: No Alcohol intake: current Alcohol use details: He rarely drinks alcohol. Substance use: never Additional living arrangements comments: He is but lives with his long-term girlfriend of the last 30 years.
[2022-05-16 04:22] LABS: SARS-CoV-2 RNA PCR Negative
== END 2022-05-16 03:54 | disposition home or self-care (01) ==
PROVIDERS: Emergency Medicine; Emergency Provider Preventive Medicine Aerospace Medicine
DX: R42 Dizziness and giddiness (principal); I44.0 Atrioventricular block, first degree; I10 Essential (primary) hypertension; E78.5 Hyperlipidemia, unspecified; K21.9 Gastro-esophageal reflux disease without esophagitis; F03.90 Unspecified dementia, unspecified severity, without behavioral disturbance, psychotic disturbance, mood disturbance, and anxiety; H26.9 Unspecified cataract; Z87.891 Personal history of nicotine dependence; Z20.822 Contact with and (suspected) exposure to COVID-19
CPT/HCPCS: 36415; 71046; 80053; 83690; 84484; 85025; 85610; 85730; 93005; 99284; C9803; U0003; U0005

== ENCOUNTER 2022-08-22 01:04 | Emergency (ER) | payer MEDICARE, SELFPAY ==
[2022-08-22 01:10] VITALS: BP 150/60; PULSE 64; RESP 20; TEMP 36.9; O2SAT 99
--- NOTE | 2022-08-22 01:58 | ED.EYEPROB ---
HPI - Eye Problem General Chief complaint: Eye Problems <Kelli Galarza PA-C - Last Filed: 08/22/22 03:07> Stated complaint: R eye pain <Kelli Galarza PA-C - Last Filed: 08/22/22 03:07> Time Seen by Provider: 08/22/22 01:51 <MIGUEL Kim Last Filed: 08/22/22 03:07> History of Present Illness HPI Narrative: Patient is an 86-year-old male here for evaluation of right eye irritation and foreign body sensation for the past 6 hours. Patient denies known foreign body. Patient states he has chronic blurry vision due to cataracts, no worse than usual. No eye discharge, redness, itchiness, fevers or chills, headaches, nasal drainage, rashes anywhere else. Patient tells me he is supposed to wear distance corrective lenses but has not. No history of contact lens use. <Kelli Galarza PA-C - Last Filed: 08/22/22 03:07> Related Data Home medications: Home Medications Medication Instructions Recorded Confirmed atorvastatin 20 mg tablet 20 mg PO DAILY 06/09/20 03/26/21 calcium cmb 1 tablet PO DAILY 06/09/20 03/26/21 [id number] 120 mg-1,000 unit-10 mg tablet (Vitamin D-3 with Aloe) losartan 50 mg tablet 25 mg PO DAILY 06/09/20 03/26/21 memantine 10 mg tablet 10 mg PO BID 06/09/20 03/26/21 metoprolol succinate 25 mg capsule 12.5 mg PO DAILY 06/09/20 03/26/21 sprinkle, ext. release 24 hr omeprazole 40 mg capsule,delayed 40 mg PO BID 06/09/20 03/26/21 release vitamin B complex (B 1 tablet PO DAILY 06/09/20 03/26/21 Complex-Vitamin B12 tablet) vitamins A,C,K-nxul-jkhiak 14,320 1 cap PO BID 06/09/20 03/26/21 unit-226 mg-200 unit capsule (ICaps AREDS) donepezil 5 mg tablet 5 mg PO DAILY 03/04/21 03/26/21 metoprolol succinate 25 mg 25 mg PO DAILY 03/04/21 03/26/21 tablet,extended release 24 hr sildenafil 50 mg tablet 50 mg PO PRN PRN Erectile 03/04/21 03/26/21 Dysfunction <Kelli Galarza PA-C - Last Filed: 08/22/22 03:07> Allergies/adverse reactions: Allergies Allergy/AdvReac Type Severity Reaction Status Date / Time ibuprofen Allergy Unknown Rash Verified 05/16/22 03:02 naproxen Allergy Unknown Rash Verified 05/16/22 03:02 Sulfa (Sulfonamide Allergy Unknown Unknown Verified 05/16/22 03:02 Antibiotics) ciprofloxacin AdvReac Unknown Rash Verified 05/16/22 03:02 <Kelli Galarza PA-C - Last Filed: 08/22/22 03:07> Review of Systems Review of Systems: Gen: Denies fevers or chills Eyes: Reports right eye pain. ENT: Denies congestion Respiratory: Denies shortness of breath or cough CV: Denies chest pain or palpitations GI: Denies abdominal pain nausea, emesis or diarrhea denies burning, urgency, frequency or hematuria Musculoskeletal: Denies back pain or muscle pain Neuro: Denies numbness, tingling, weakness or focal weakness Skin: Denies rash Except as documented, all other systems reviewed and negative <Kelli Galarza PA-C - Last Filed: 08/22/22 03:07> [facility] Past Medical History Medical History: Medical History Dementia GERD (gastroesophageal reflux disease) Hyperlipidemia Hypertension Left cataract maturing <Kelli Galarza PA-C - Last Filed: 08/22/22 03:07> Surgical History Surgical History: Surgical History History of left inguinal hernia repair History of umbilical hernia repair Status post cataract extraction and insertion of intraocular lens of right eye <Kelli Galarza PA-C - Last Filed: 08/22/22 03:07> Family History Family History: Family History Mother Age older than 80 years Father MVA (motor vehicle accident) His father 2 months before patient was born. <Kelli Galarza PA-C - Last Filed: 08/22/22 03:07> Social History Social Hi
== END 2022-08-22 03:05 | disposition home or self-care (01) ==
PROVIDERS: Emergency Provider Emergency Medicine; PCP Family Medicine
DX: S05.01XA Injury of conjunctiva and corneal abrasion without foreign body, right eye, initial encounter (principal); F03.90 Unspecified dementia, unspecified severity, without behavioral disturbance, psychotic disturbance, mood disturbance, and anxiety; E78.5 Hyperlipidemia, unspecified; I10 Essential (primary) hypertension; K21.9 Gastro-esophageal reflux disease without esophagitis; H26.9 Unspecified cataract; Z98.41 Cataract extraction status, right eye; Z96.1 Presence of intraocular lens; Z87.891 Personal history of nicotine dependence; X58.XXXA Exposure to other specified factors, initial encounter
CPT/HCPCS: 99283

== ENCOUNTER 2025-09-28 22:16 | Inpatient (IN) | payer MEDICARE, SELFPAY ==
--- NOTE | ~2025-09-28 | CT_ITS ---
CT HEAD NON-CONTRAST Clinical History: seziure Comparison: None Technique: Unenhanced axial images skull base to vertex Coronal, sagittal reformats CT images acquired with automatic exposure control for dose reduction DLP: 1513 mGy-cm Findings: Significant motion artifact. Age-related atrophy. Chronic white matter microvascular ischemic changes. Right frontal hyperdensity. Sulci, ventricles: Unremarkable. No evidence acute territorial infarct. No mass effect, midline shift. Bony calvarium intact. Visualized paranasal sinuses: Maxillary disease. Mastoid air cells: Clear. Findings and case discussed via telephone by myself with Dr. Luna at 8:23 AM EST. IMPRESSION: 1. Probable subarachnoid hemorrhage right frontal lobe. Recommend short interval follow-up repeat scan. Reviewed, dictated and finalized at location R. MANAGER IMPRESSION: 1. Probable subarachnoid hemorrhage right frontal lobe. Recommend short interv al follow-up repeat scan.
--- NOTE | ~2025-09-28 | MR_ITS ---
EXAM/PROCEDURE: MR brain/brain stem wo/w con HISTORY: seizure COMPARISON: None available. TECHNIQUE: Pre and postcontrast enhanced brain MRI performed FINDINGS: No compelling areas of restricted diffusion or acute ischemia. Punctate hyperintense foci in the high parietal convexity image 27 series 3 does not appear to clearly correspond to any signal abnormality or restricted diffusion on ADC mapping images. No mass, mass effect or hemorrhage. Moderate diffuse volume loss, disproportionately affecting the ventricles. Moderately advanced periventricular T2 weighted hyperintense white matter changes with no abnormal enhancing lesions or masses. Enhancement of the meninges is somewhat prominent, especially along the left temporal region where there is mildly thickened appearance of the meninges image 10 series 8. Brainstem and cerebellum appear normal. Hippocampal regions are symmetric. Mild to moderately severe mucoperiosteal thickening in the maxillary sinuses, and ethmoid air cells. Paranasal periorbital and calvarial structures otherwise unremarkable. No evidence of intracranial hemorrhage on gradient echo series. IMPRESSION: 1. Mild hyperenhancement of the meninges, and mildly thickened meninges adjacent to the left temporal lobe suspicious for meningitis or other inflammatory/infiltrative meningeal process. 2. No acute ischemic event, mass or hemorrhage. 3. Mild to moderately severe paranasal sinus disease. Reviewed, dictated and finalized at location A. H AND BROOM CLIPPER IMPRESSION: 1. Mild hyperenhancement of the meninges, and mildly thickened meninges adjacen t to the left temporal lobe suspicious for meningitis or other inflammatory/inf iltrative meningeal process. 2. No acute ischemic event, mass or hemorrhage. 3. Mild to moderately severe paranasal sinus disease.
--- NOTE | 2025-09-28 22:31 | ECG_ITS ---
Test Date: 2025-09-28 23:46:02 Measurements Intervals [place] Rate: 79 P: 0 [place]: 0 QRS: 66 QRSD: 94 T: 6 QT: 321 QTc: 370 Interpretive Statements SINUS RHYTHM WITH FIRST DEGREE AV BLOCK NONSPECIFIC T-WAVE ABNORMALITY- INFERIOR LEADS BASELINE ARTIFACT- I, II, III, AVR, AVL, AVF, V1-V6 BORDERLINE ECG No previous ECG available for comparison Electronically Signed On 09-29-2025 06:05:46 [employer] by Shad Cuello D.O.
[2025-09-28 22:32] VITALS: BP 125/80; PULSE 69; RESP 18; TEMP 36.6; O2SAT 94
--- NOTE | 2025-09-28 23:17 | ED_ITS ---
HPI - Recheck/Abnormal Lab/Rx General Chief Complaint: Seizure Stated Complaint: possible seizure Time Seen by Provider: 09/28/25 22:50 History of Present Illness HPI narrative: 89-year-old male with history of significant advanced dementia, baseline altered mental status alert to his name. Presents to the emergency department from his memory care facility after a episode of visualized shaking. No reported loss of consciousness and patient is acting at his baseline mentation presently. He seems to be acting appropriately, not any distress, feet and hands crossed on arrival to the emergency department. No signs of visible injury trauma. Does resist when we are attempting to place him on the monitor and get IV access but not in a very agitated distressed manner. Alert to his name and kind of mumbles but not able to provide any coherent history which is similar to his previous nursing and primary care provider notes. No history of any seizure or syncope activity previously and no recent health concerns otherwise. Patient is comfort care measures only per his signed paperwork provided by staff. Related Data Home Medications ?Medication ?Instructions ?Recorded ?Confirmed ?Last Taken ?Type vitamins A,C,S-kbmo-bphvgl 4,296 1 cap PO BID 06/09/20 09/29/25 Unknown History mcg-226 mg-90 mg capsule (ICaps AREDS) Allergies Allergy/AdvReac Type Severity Reaction Status Date / Time ibuprofen Allergy Unknown Rash Verified 02/26/25 10:40 naproxen Allergy Unknown Rash Verified 02/26/25 10:40 Sulfa (Sulfonamide Allergy Unknown Unknown Verified 02/26/25 10:40 Antibiotics) ciprofloxacin AdvReac Unknown Rash Verified 02/26/25 10:40 Review of Systems 2 Review of Systems: As reviewed above in HPI All systems reviewed & are unremarkable except as noted in HPI and below PMFSH Past Medical History Medical History Left cataract maturing GERD (gastroesophageal reflux disease) Dementia Hyperlipidemia Hypertension Surgical History Surgical History Status post cataract extraction and insertion of intraocular lens of right eye History of left inguinal hernia repair History of umbilical hernia repair Family History Family History Mother Age older than 80 years Father MVA (motor vehicle accident) His father 2 months before patient was born. Social History Social History (Updated 09/29/25 @ 04:03 by Talya Zhong, PATY) Social History: He is and retired. Code status: DNR Smoking packs per day: 1 Smoking cigarettes per day: 20.0 Years smoked: 15 Smoking pack-years: 15.00 Smoking status: Former smoker Tobacco type: cigarettes Second hand tobacco smoke exposure: No Alcohol intake: current Alcohol use details: He rarely drinks alcohol. 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 His undergraduate degree was in math. His master's degree was in Romanian. Gender identity (if verbalized by the patient): Male Sexual Orientation (if Verbalized by the Patient): Straight or Heterosexual Spiritual care concerns: No Exam 2 Narrative: GENERAL: well-appearing, not any distress, alert to his name which is baseline HEAD: [Normocephalic, atraumatic.] EYES: [PERRLA and EOMI.] ENT: Nares clear, no rhinorrhea or epistaxis. Mucous membranes moist. NECK: Supple. CHEST: [Clear to auscultation. No respiratory distress.] HEART: [Regular rate and rhythm]. No murmur heard. [Normal peripheral pulses.] ABDOMEN: [Soft, nondistended], [nontender], [No rigidity or guarding] EXTREMITIES: Normal range of motion. [No edema.] SKIN: Warm, dry, no rash. NEURO: moving all extremities without any focal deficits. No facial asymmetry. Alert to his name only which is his baseline mentation. Some slight agitation when trying to get IV access or placed on monitor but otherwise common comfortable appearing. Course Vital Signs Vital signs: Vital Signs Temperature 36.6 C 09/28/25 22:32 Pulse Rate 69 09/28/25 22:32 Respiratory Rate 18 09/28/25 22:32 Blood Pressure 125/80 09/28/25 22:32 Pulse Oximetry 94 09/28/25 22:32 Oxygen Delivery Room Air 09/28/25 22:32 Temperature 36.6 C 09/29/25 02:11 Pulse Rate 108 H 09/29/25 02:11 Respiratory Rate 18 09/29/25 02:11 Blood Pressure 97/44 L 09/29/25 02:11 Pulse Oximetry 90 09/29/25 02:11 Oxygen Delivery Room Air 09/28/25 23:50 MDM MDM Narrative Medical decision making narrative: 89-year-old male with history of significant advanced dementia, baseline altered mental status alert to his name. Presents to the emergency department from his memory care facility after a episode of visualized shaking. No reported loss of consciousness and patient is acting at his baseline mentation presently. He seems to be acting appropriately, not any distress, feet and hands crossed on arrival to the emergency department. No signs of visible injury trauma. Does resist when we are attempting to place him on the monitor and get IV access but not in a very agitated distressed manner. Alert to his name and kind of mumbles but not able to provide any coherent history which is similar to his previous nursing and primary care provider notes. No history of any seizure or syncope activity previously and no recent health concerns otherwise. Patient is comfort care measures only per his signed paperwork provided by staff. We did reach out to family member over the phone regarding patient's presentation as well as comfort measures. They would like us to investigate and do workup and lab/ imaging at admission if needed for any potential diagnostics as he reportedly had a shaking episode lasting a minute at the facility and could have been a seizure. Patient has no history of seizures. Does not appear postictal or actively confused from his baseline but will oblige and workup underway including laboratory studies and CT of the head. EKG obtained. His laboratory studies were negative for any acute abnormality. Negative lactic acid and CT head was unremarkable. Prior to re-evaluated the patient and discussion with family members he had a generalized tonic-clonic seizure that was witnessed by me and staff with left-sided gaze preference and deviation and loss of consciousness. This aborted shortly thereafter with regaining his baseline mentation after few minutes. Given a Keppra dose at this time and will be admitted for evaluation of his seizures after discussion with family members. Neurology was consulted as well as EEG and MRI placement in the EMR. Spoke to the hospitalist who accepted the patient to the telemetry floor at this time. Differential Diagnosis Differential Diagnosis: Syncope, seizure, electrolyte abnormality, dehydration, stroke, brain bleed Lab Data MDM Lab Attestation statement: I personally reviewed the patient's lab results. 09/28/25 23:10 09/28/25 23:10 Labs: Lab Results 09/28/25 09/28/25 Range/Units 23:10 23:48 WBC 9.5 (4.5-10.0) K/mm3 RBC 3.59 L (4.6-6.20) M/mm3 Hgb 10.9 L (14.0-18.0) g/dL Hct 33.1 L (42.0-52.0) % MCV 92.2 (80-100) fl MCH 30.4 (26-34) pg MCHC 32.9 (32-36) g/dl RDW 11.9 (11.5-14.5) % Plt Count 220 (150-375) k/mm3 MPV 10.0 (7.4-10.4) fl Immature Gran % (Auto) 0.3 (0-0.5) % Neut % (Auto) 73.0 (45.5-73.1) % Lymph % (Auto) 16.4 L (18.3-44.2) % [place] % (Auto) 7.8 (2.6-8.5) % Eos % (Auto) 2.1 (0-4.4) % Baso % (Auto) 0.4 (0.2-1.2) % Lymph # (Auto) 1.55 (0.9-3.2) K/mm3 [place] # (Auto) 0.7 H (0.1-0.6) K/mm3 Eos # (Auto) 0.2 (0-0.3) K/mm3 Baso # (Auto) 0.0 (0.0-0.1) K/mm3 Abs Immat Gran (auto) 0.03 (0.00-0.031) K/mm3 Absolute Neuts (auto) 6.9 H (1.3-6.7) K/mm3 Absolute Nucleated RBC 0.000 (0.0-0.012) K/mm3 Nucleated RBC % 0.0 (0.0-0.2) % PT 14.9 H (11.1-14.7) Seconds INR 1.2 APTT 27.9 (22.3-36.8) Seconds Sodium 135 L (137-145) mmol/L Potassium 4.0 (3.4-5.0) mmol/L Chloride 101 (98-107) mmol/L Carbon Dioxide 28 (22-30) mmol/L Anion Gap 6 (4-12) mmol/L BUN 18 (9-20) mg/dL Creatinine 1.04 (0.7-1.3) mg/dL Estim Creat Clear Calc Not Reportable Estimated GFR > 60 (59 - ) Glucose 124 H (65-110) mg/dL Lactic Acid 1.4 (0.7-2.0) mmol/L Calcium 9.1 (8.4-10.2) mg/dL Total Bilirubin 0.6 (0.2-1.3) mg/dL AST 23 (17-59) U/L ALT 12 (6-50) U/L Alkaline Phosphatase 113 (38-126) U/L Total Protein 7.5 (6.3-8.2) g/dL Albumin 3.9 (3.5-5.1) g/dL Urine Color Yellow (Yellow) Urine Appearance Clear (Clear) Urine pH 6.5 (5.0-9.0) Ur Specific [place] 1.020 (1.001-1.035) Urine Protein Trace (Negative) mg/dL Urine Glucose (UA) Negative (Negative) mg/dL Urine Ketones Negative (Negative) mg/dL Ur Blood (Man) Negative (Negative) Urine Nitrate Negative (Negative) Urine Bilirubin Negative (Negative) Urine Urobilinogen 2.0 H (<2.0) mg/dL Add Ur Microanalysis Reviewed Leukocyte Esterase Rfl Trace H (Negative) MAC/UL Urine RBC 0-2 (0-2) /hpf Urine WBC 0-5 (0-3) /hpf Ur Squamous Epith Cells None seen (Few) /hpf Urine Bacteria None seen /hpf Urine Casts 3-5 Imaging Data Attestation: I personally reviewed and interpreted this imaging study as follows: My impression: no acute process Discharge Plan Discharge Clinical Impression: Seizure Patient Disposition: Still a Patient Condition: Guarded Prognosis Time of Disposition: 06:09
[2025-09-28 23:19] LABS: Hematocrit 33.1 % (42.0-52.0); Hemoglobin 10.9 g/dL (14.0-18.0); Immature Granulocyte Percent A 0.3 % (0-0.5); Lymphocytes Absolute Auto 1.55 K/mm3 (0.9-3.2); Mean Corpuscular HGB Conc 32.9 g/dl (32-36); Mean Corpuscular Hemoglobin 30.4 pg (26-34); Mean Corpuscular Volume 92.2 fl (80-100); Nucleated Red Blood Cells Absolute Auto 0.000 K/mm3 (0.0-0.012); Nucleated Red Blood Cells Perc 0.0 % (0.0-0.2); Platelet Count Result 220 k/mm3 (150-375); Red Blood Count 3.59 M/mm3 (4.6-6.20); White Blood Count 9.5 K/mm3 (4.5-10.0)
[2025-09-28 23:26] LABS: Alanine Aminotransferase 12 U/L (6-50); Albumin Level 3.9 g/dL (3.5-5.1); Alkaline Phosphatase 113 U/L (38-126); Anion Gap 6 mmol/L (4-12); Aspartate Amino Transferase 23 U/L (17-59); Bilirubin,Total 0.6 mg/dL (0.2-1.3); Blood Urea Nitrogen 18 mg/dL (9-20); Calcium 9.1 mg/dL (8.4-10.2); Carbon Dioxide 28 mmol/L (22-30); Chloride 101 mmol/L (98-107); Estimated Glomerular Filt Rate > 60; Glucose 124 mg/dL (65-110); Potassium 4.0 mmol/L (3.4-5.0); Sodium 135 mmol/L (137-145); Total Protein 7.5 g/dL (6.3-8.2)
--- OUTSIDE RECORDS SUMMARY | 2025-09-28 23:37 | XMS_ITS | Encounter Summary ---
[facility] Address 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
--- OUTSIDE RECORDS SUMMARY | 2025-09-28 23:37 | XMS_ITS | Encounter Summary ---
Author Organization [facility] Address 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
--- OUTSIDE RECORDS SUMMARY | 2025-09-28 23:37 | XMS_ITS | Encounter Summary ---
Author Organization [facility] Health Address [address] [place] [address] Care Team Providers Care Lunchroom Supervisor Name Role Phone Case Jacobsen MD Primary Care Provider [phone] Reason for Visit * Reason Onset Date Comments Question 08/09/2020 Encounter Details Date Type Department Care Team (Late st Contact Info) Description 08/09/2020 Telephone [facility] [address] [place] [address], [place] [id number] Ashley Davidson MD [facility] [facility] [address] [place] [address] Question Social History Tobacco Use Types Packs/Day Years Used Date Smoking Tobacco: Former Smokeless Tobacco: Never Alcohol Use Standard Drinks/Week Comments Yes 0 (1 standard drink = 0.6 oz pur e alcohol) Sex and Gender Information Value Date Recorded Sex Assigned at Not on file 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 Per via email: It doesn't look infected, so if it is not painful, then we don't need antibiotics. If it is painful, however, then we are fine to start Keflex 500mg TID x 7 days if not allergic. I called the pt and spoke wit his . She states the he is not experiencing any discomfort to thearea. She had a few wound care questions which I answered to her satisfaction. No further questionsasked. Advised to call us if any new issues arise. -Brenda Whittaker * Telephone Encounter - Nilsa Miranda - 08/09/2020 10:22 AM CDT PT significant other/POA stating she's providing care to pt's womb. PT had surgery 08/06 [facility]. She's wanting a call back from the nurses pertaining to womb care treatment. Can be reach at [phone]. documented in this encounter Plan of Treatment Not on file documented as of this encounter Visit Diagnoses Not on filedocumented in this encounter Care Teams Lunchroom Supervisor Relationship Specialty Start Date End Date Case Jacobsen MD [address] [place] [address] DR [address] [address] PCP - General 08/06/20 documented as of this encounter
--- OUTSIDE RECORDS SUMMARY | 2025-09-28 23:37 | XMS_ITS | Clinical Summary ---
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
--- OUTSIDE RECORDS SUMMARY | 2025-09-28 23:37 | XMS_ITS | Clinical Summary ---
Author Organization [facility] Address [address] [place] [address] Care Team Providers Care Supervisor Special Effects Name Role Phone Case Jacobsen MD Primary Care Provider [phone] Source Comments [facility],non-owned Affiliates and Associated Physician Practices is amultiple site organization consisting of ambulatory clinics and hospital sitesin [place], [place] and [place]. This disclosure is being madepursuant to the Care Everywhere program and may not contain all information available regarding this patient. Last updated 18.[facility] Allergies Active Allergy Reactions Criticality Noted Date Comments Naproxen Rash Medium 08/06/2020 Sulfa Drugs Rash Medium 11/03/2013 Medications * Be aware that medications may not be up to date on this document. Alwaysverify current medications with the patient. atorvastatin (LIPITOR) 20 MG tablet 07/28/2020 Active losartan (COZAAR) 50 MG tablet TK HALF A T PO D 07/27/2020 Active memantine (NAMENDA) 10 MG tablet TK 1 T PO BID 05/13/2020 Active metoprolol succinate XL 24hr (TOPROL XL) 25 MG tablet 03/28/2020 Active omeprazole (PRILOSEC) 40 MG capsule 08/05/2020 Active Vitamins A & D (VITAMIN A & D PO) Take 1 Each by mouth once daily 06/13/2019 Active Methylcobalamin (Y90-YEICBC PO) Acti ve Multiple Vitamins-Mineral s (PRESERVISION AREDS 2) CHEW Active Active Problems No known active problems Social History Tobacco Use Types Packs/Day Years Used Date Smoking Tobacco: Former Smokeless Tobacco: Never Alcohol Use Standard Drinks/Week Comments Yes 0 (1 standard drink = 0.6 oz pur e alcohol) Sex and Gender Information Value Date Recorded Sex Assigned at Not on file 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 Gender Identity Not on file Sexual Orientation Not on file Last Filed Vital Signs Vital Sign Reading Time Taken Comments Blood Pressure 118/74 08/06/2020 11:55 AM CDT Pulse 57 08/06/2020 11:55 AM CDT Temperature - - Respiratory Rate - - Oxygen Saturation - - Inhaled Oxygen Concentration - - Weight 82.6 kg (182 lb) 08/06/2020 8:49 AM CDT Height 185.4 cm (6' 1) 08/06/2020 8:49 AM CDT Body Mass Index 24.01 08/06/2020 8:49 AM CDT Plan of Treatment Health Maintenance Due Date Last Done Comments DTAP/TDAP/TD VACCINES (1 - Tdap) 1954 PNEUMOCOCCAL VACCINE 50+ (1 of 1 - PCV) 1987 ZOSTER VACCINE (1 of 2) 1987 Respiratory Syncytial Virus (RSV) Vaccine Pt: or over 60 yrs (1 - 1-dose 75+ series) 2012 DEPRESSION SCREENING 10/15/2024 COVID-19 VACCINE (1 - 2024- season) 2025 INFLUENZA VACCINE (#1) 2025 0, 07/07/2019, 08/14/2018, Additional history exists HEPATITIS B VACCINE Aged Out No longe r eligible based on patient's age to complete this topic HIB VACCINE Aged Out No longer eligi ble based on patient's age to complete this topic HPV VACCINE Aged Out No longer eligi ble based on patient's age to complete this topic MENINGOCOCCAL (Group B) VACCINE SHARED DECISION-MAKING Aged Out No longer eligible based on patient's age to complete this topic MENINGOCOCCAL GROUPS A/C/Y/W VACCINE Aged Out No longer eligible based on patient's age to complete this [place] [address] [facility] MANAGED MEDICARE [place] [id number] Care Teams Supervisor Special Effects Relationship Specialty Start Date End Date Case Jacobsen MD [address] [address] PCP - General 08/06/20
--- OUTSIDE RECORDS SUMMARY | 2025-09-28 23:37 | XMS_ITS | Patient Health Record ---
Author Organization [facility] Address [address] [place] [phone] Care Team Providers Care Ornament Setter Name Role Phone MRS. Peggy Sofia Primary Care Provider RONALDO SANTANA Unavailable [phone] Allergies Allergen (clinical drug ingredient) Drug/Non Drug Allergy documented on EMR Reaction Allergy Type Onset Date Status Neosporin Unknown Drug Allergy Active ciprofloxacin Ciprofloxacin Unknown Drug Allergy Active ibuprofen Ibuprofen Unknown Drug Allergy Active naproxen Naproxen Unknown Drug Allergy Active Substance with sulfonamide structure and antibacterial mechanism of action (substance) Sulfa Antibiotics Unknown Drug Allergy Active Results Component Value Reference Range Notes CBC Reviewed date:08/17/2025 09:12:01 AM Interpretation: Performing Lab: Notes/Report: Lipid Panel Reviewed date:08/17/2025 09:11:36 AM Interpretation: Performing Lab: Notes/Report: Basic Metabolic Panel (8) Reviewed date:08/14/2025 01:40:26 PM Interpretation: Performing Lab: Notes/Report: Reason For Referral Reason PT to eval and treat Diagnosis 1 Generalized weakness (R53.1) Referral Organization [facility] Referring Provider First Name RONALDO Referring Provider Last Name ESTHER Referring Provider Speciality Family Med icine Referred Organization [facility] Referred Address [address] [place], [place],[facility], Referred Provider Specialty Physical The rapist General Notes Mary Bernstein 025 10:11:07 AM CDT >see patient docs Referral Priority Routine Referral Appointment Date 05/26/2025 Reason OT to eval and treat Diagnosis 1 Generalized weakness (R53.1) Referral Organization [facility] Referring Provider First Name RONALDO Referring Provider Last Name ESTHER [facility] Referred Address [address] [place], [place],[address],[place] Referred Provider Specialty Occupational Therapy General Notes Mary Bernstein 025 10:10:47 AM CDT >see patient docs Referral Priority Routine Referral Appointment Date 05/26/2025 Reason Spot on head Diagnosis 1 Skin lesion (L98.9) Referral Organization [facility] Referring Provider First Name RONALDO Referring Provider Last Name ESTHER [facility] Referred Address [address] [place], [place],[address],[place] Referred Provider Specialty Dermatology General Notes Ashlyn Mitchell 08/16 10:09:05 AM 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 POA broke hip so patient has not been scheduled yet. Referral Priority Routine Medications Medication SIG (Take, Route, Frequency, Duration) Notes Start Date End Date Status Ativan 0.5 MG Tablet 1 tablet as needed Orally twice a day; Duration: 14 days 09/08/2025 Active Kei Protect Moisture Barrier 12 % Cream as directed Externally twice a day; Duration: 30 days and as needed 06/10/2025 10/09/2025 Active FLUoxetine HCl 40 MG Capsule 1 capsule Orally Once a day; Duration: 30 days Active PreserVision AREDS - Capsule TAKE (1) CAPSULE BY MOUTH TWICE DAILY. Active Lactobacillus - Capsule 1 as directed Or ally daily 08/19/2025 Active hydrOXYzine HCl 50 MG Tablet TAKE (1) TABLET BY MOUTH(4) TIMES DAILY NEEDED FOR ANXEITY Active SEROquel 25 MG Tablet 1 tablet at bedtim e Orally Once a day; Duration: 30 days 09/21/2025 Active Loperamide HCl 2 MG Capsule 1 capsule as needed Orally Four times a day 08/19/2025 Active Omeprazole 40 MG Capsule Delayed Release 1 capsule Orally Once a day; Duration: 30 days Active Hydrogel - Gel as directed external twice a day 09/01/2025 Active Melatonin 3 MG Tablet 1 tablet at bedtim e Orally Once a day; Duration: 30 days 08/05/2025 Active Memantine HCl 10 MG Tablet 1 tablet Oral ly twice a day; Duration: 30 days Active Loratadine 10 MG Tablet 1 tablet Orally Once a day at hs; Duration: 7 days 09/22/2025 09/29/2025 Active guaiFENesin-DM 100-10 MG/5ML Liquid 10 mL as needed Orally every 4 hrs; Duration: 7 days 09/22/2025 09/29/2025 Active Benadryl 25 MG Capsule 1 capsule as need ed Orally every 8 hours; Duration: 30 days 09/07/2025 01/05/2026 Active Multivitamin Adult (Minerals) - Tablet Take 1 tablet as directed Orally daily 09/03/2025 Active Problems Problem Type SNOMED Code ICD Code Onset Dates Problem Status W/U Status Risk Notes Problem Hyperlipidemia (52686854) Hyperlipidemia, unspecified (E78.5) Active confirmed Problem Cortical senile cataract (58262810) Cortical age-related cataract, 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) Active confirmed Problem 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, 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 confirmed Problem Cataract (386617642) Unspecified cataract (H26.9) Active confirmed Problem Pressure injury of buttock stage II (disorder) (37891054207088821) Pressure ulcer of unspecified buttock, stage 2 (L89.302) Active confirmed Problem Altered mental status (485047688) Altered mental status, unspecified (R41.82) Active confirmed Problem Gastroesophageal reflux disease (934758158) GERD without esophagitis (K21.9) Active confirmed Problem Benign essential hypertension (0209619) Benign essential hypertension (I10) Active confirmed Problem Dementia (62718956) Chronic dementia (F03.90) Active confirmed Problem Urinary incontinence (776001152) Urinary incontinence, unspecified type (R32) Active confirmed Vital Signs Heart Rate 65 /min 09/03/2025 Temperature 97.3 degrees Fahrenheit 09/03/2025 Respiratory Rate 16 /min 09/03/2025 Oximetry 96 % 09/03/2025 Blood pressure diastolic 91 mm Hg 09/03/2025 Blood pressure systolic 130 mm Hg 09/03/2025 Encounters Encounter Location Date Provider Diagnosis [facility] [address] [place] [address] 05/26/2025 RONALDO SANTANA Chronic dementia F03.90 ; GERD without esophagitis K21.9 ; Hyperlipidemia, unspecified E78.5 ; Benign essential hypertension I10 and Unspecified cataract H26.9 [facility] [address] [place] [address] [place] [address] 08/17/2025 Peggy Sofia Chronic dementia F03.90 ; GERD without esophagitis K21.9 ; Hyperlipidemia, unspecified E78.5 ; Benign essential hypertension I10 ; Unspecified cataract H26.9 and Pressure ulcer of unspecified buttock, stage 2 L89.302 [facility] [address] [place] [address] 09/03/2025 Peggy Sofia Chronic dementia F03.90 ; GERD without esophagitis K21.9 ; Hyperlipidemia, unspecified E78.5 ; Benign essential hypertension I10 ; Unspecified cataract H26.9 and Pressure ulcer of unspecified buttock, stage 2 L89.[address] [facility] [address] [place] [address] 05/25/2025 RONALDO ESTHER [facility] [address] [address] 05/25/2025 RONLADOVONDA HYATTIA [facility] [address] [place] [address] 05/25/2025 RONALDO [facility] [address] [id number] 05/26/2025 RONALDO ESTHER [facility] [address] [place] [address] 06/10/2025 RONALDO ESTHER [facility] [address] [id number] 06/11/2025 RONALDO ESTHER [facility] [place] [address] [place] [address] 08/05/2025 Peggy Sofia [facility] [place] [address] [place] [address] 08/16/2025 Peggy Sofia [facility] [place] [address] [place] [address] 08/19/2025 Peggy Sofia [facility] [place] [address] [place] [address] 08/25/2025 Peggy Sofia [facility] [address] [place] [address] 08/31/2025 Peggy Sofia [facility] [address] [place] [address] 09/01/2025 Peggy Sofia [facility] [address] [place] [address] 09/02/2025 Peggy Sofia [facility] [address] [place] [address] [place] [address] 09/04/2025 Peggy Sofia [facility] [address] [place] [address] [place] [address] 09/07/2025 Peggy Sofia [facility] [address] [place] [address] [place] [address] 09/08/2025 Peggy Sofia [facility] [place] [address] [place] [address] 09/08/2025 Peggy Sofia [facility] [address] [place] [address] 09/21/2025 Peggy Sofia [facility] [address] [place] [address] [place] [address] 09/22/2025 Peggy Sofia [facility] [address] [place] [address] 09/23/2025 Peggy Sofia Pressure ulcer of unspecified buttock, stage 2 L89.302 Assessments Encounter Date Diagnosis (ICD Code) Assessment Notes Treatment Notes Treatment Clinical Notes Section Notes 09/23/2025 Pressure ulcer of unspecified buttock, stage 2 (ICD-10 - L89.302) 08/17/2025 Chronic dementia (ICD-10 - F03.90) A&O x 1, but able to make needs known at times. No behaviors or outbursts. Stable on current medication regimen. Continue current treatment plan and monitoring. 08/17/2025 GERD without esophagitis (ICD-10 - K21.9) No complaints or concerns at this time. Stable on current medication regimen. Continue current treatment plan and monitoring. 09/03/2025 Chronic dementia (ICD-10 - F03.90) A&O x 1, but able to make needs known at times. No behaviors or outbursts. Stable on current medication regimen. Continue current treatment plan and monitoring. 05/26/2025 GERD without esophagitis (ICD-10 - K21.9) No complaints or concerns at this time. Stable on current medication regimen. Continue current treatment plan and monitoring. 05/26/2025 Chronic dementia (ICD-10 - F03.90) A&O x 1, but able to make needs known at times. No behaviors or outbursts. Stable on current medication regimen. Continue current treatment plan and monitoring. 05/26/2025 Hyperlipidemia, unspecified (ICD-10 - E78.5) Last lipid panel not on file. No complaints or concerns. Stableon current medication regimen. Continue current treatment plan and monitoring. 09/03/2025 GERD without esophagitis (ICD-10 - K21.9) No complaints or concerns at this time. Stable on current medication regimen. Continue current treatment plan and monitoring. 08/17/2025 Hyperlipidemia, unspecified (ICD-10 - E78.5) Last lipid panel not on file. No complaints or concerns. Stableon current medication regimen. Continue current treatment plan and monitoring. 09/03/2025 Hyperlipidemia, unspecified (ICD-10 - E78.5) Last lipid panel not on file. No complaints or concerns. Stableon current medication regimen. Continue current treatment plan and monitoring. 08/17/2025 Benign essential hypertension (ICD-10 - I10) Reported history. BP stable and trending at goal. Not currently on any medication. Continue to manage with diet and monitor. Continue current treatment plan and monitoring. 05/26/2025 Benign essential hypertension (ICD-10 - I10) Reported history. BP stable and trending at goal. Not currently on any medication. Continue to manage with diet and monitor. Continue current treatment plan and monitoring. 05/26/2025 Unspecified cataract (ICD-10 - H26.9) No complaints or concerns at this time. Continue current treatment plan and monitoring 09/03/2025 Benign essential hypertension (ICD-10 - I10) Reported history. BP stable and trending at goal. Not currently on any medication. Continue to manage with diet and monitor. Continue current treatment plan and monitoring. 08/17/2025 Unspecified cataract (ICD-10 - H26.9) No complaints or concerns at this time. Continue current treatment plan and monitoring 08/17/2025 Pressure ulcer of unspecified buttock, stage 2 (ICD-10 - L89.302) Discussed wound care with staff. Wound consult ordered. Advised to keep clean and dry with a colloidal dressing. change daily and when soiled. Assess area daily and advise of any new concerns. 09/03/2025 Unspecified cataract (ICD-10 - H26.9) No complaints or concerns at this time. Continue current treatment plan and monitoring 09/03/2025 Pressure ulcer of unspecified buttock, stage 2 (ICD-10 - L89.302) Discussed wound care with staff. Wound consult ordered. Advised to keep clean and dry with a colloidal dressing. change daily and when soiled. Assess area daily and advise of any new concerns. 05/26/2025 Other Continue current treatment plan.Staff to continue to monitor and report any changes.Patient education provided and questions/nataly rns addressed.Follo w up in three months unless necessary sooner. 09/03/2025 Other Continue current treatment plan.Staff to continue to monitor and report any changes.Patient education provided and questions/nataly rns addressed.Follo w up in three months unless necessary sooner. 08/17/2025 Other Continue current treatment plan.Staff to continue to monitor and report any changes.Patient education provided and questions/nataly rns addressed.Follo w up in three months unless necessary sooner. Plan Of Treatment Pending Test Test Name Order Date UA W REFLEX TO CX 09/22/2025 UA W REFLEX TO CX 08/26/2025 Insurance Providers Payer Name Payer Address Payer Phone Subscriber Number Group Number Insured Name Patient Relationship to Insured Coverage Start Date Coverage End Date [employer] [address] [place] [phone] [id number] Alfredo Morrissey Self - patient is the insured Medical (General) History Medical History History ICD Code renee pain BPH closed wedge compression fracture of sec ond lumbar vertebra cough dementia dilatation of aorta diverticulitis fracture of phalanx of thumb gastric ulcer GERD history of recurrent pneumonia hyperlipidiemia hypertension osteoarthritis cervical spine otitis media of left ear retinal detachment Surgical History Surgery Date(Month/Year) left inguinal hernia repair umbilical hernia repair post cataract extraction - right eye [facility] surgery biopsy of skin lesion retinal detachment surgery vitrectomy
--- OUTSIDE RECORDS SUMMARY | 2025-09-28 23:37 | XMS_ITS | Clinical Summary ---
Author Organization [facility] Address [address] [place] [address] Care Team Providers Care Clearance Representative Name Role Phone Stephen Seo MD PhD Unavailable [phone] Fang Lacey MD Unavailable Oral Vanegas MD Unavailable Jeevan Sanchez MD Unavailable [phone] Andriy Draper MD Unavailable [phone] Rell Campbell MD Unavailable [phone] Praveen Diana Chi, MD Unavailable Pillo Cantu MD Unavailable Candi Dunaway MD PhD Unavailable Ashley Davidson MD Unavailable [phone] Allergies Active Allergy Reactions Criticality Noted Date Comments Antihistamine-1 Other (See comments) Low 11/21/2016 Urinary retention Naproxen Rash Medium Sulfa (Sulfonamide Antibiotics) Rash Medium 11/03/2013 Unclassified Drug Unknown 05/07/2019 SKIN RASH WHEN USING PABA AND SALICYCLATES Medications cyanocobalamin (B-12 DOTS) 500 mcg tabletIndicatio ns:Prevention of Vitamin B12 Deficiency 1,000 mcg 4 Active cholecalciferol (VITAMIN D3) 1,000 unit capsule 1,000 Units daily. 4 Active vitamins A,C,E-zinc-william er 7,160-113-100 dmhu-dl-olqa tablet,delayed release (DR/EC) Take 1 each by mouth daily 9 Active aspirin 81 mg enteric coated tablet Take 81 mg by mouth daily Active sildenafiL (VIAGRA) 50 mg tablet TAKE 1 TABLET(50 MG) BY MOUTH DAILY NEEDED FOR ERECTILE DYSFUNCTION 12 tablet 3 1 Active ipratropium (ATROVENT) 42 mcg (0.06 %) nasal sprayIndication s:Chronic rhinitis Administer 2 sprays into each nostril 4 (four) times a day as needed for rhinitis 15 mL 5 2 Active memantine (NAMENDA) 10 mg tablet Take 1 tablet (10 mg total) by mouth 2 (two) times a day 90 tablet 3 2 Active donepeziL (ARICEPT) 5 mg tablet TAKE 1 TABLET(5 MG) BY MOUTH DAILY WITH BREAKFAST 30 tablet 11 2 Active omeprazole (PriLOSEC) 40 mg capsule TAKE 1 CAPSULE(40 MG) BY MOUTH TWICE DAILY 180 capsule 3 3 Active atorvastatin (LIPITOR) 20 mg tablet TAKE 1 TABLET(20 MG) BY MOUTH DAILY 90 tablet 3 3 Active Active Problems Problem Noted Date Diagnosed Date Trigger ring finger of right hand 02/15/2022 Assessment & Plan (02/15/2022 9:44 AM CDT): Sxs are mild - will start with conservative measures -can use tylenol, rest, can use a splint and gentle stretching Referred to PT If persistent, consider hand ortho referral History of skin cancer 11/10/2021 Chronic rhinitis 07/15/2021 Hand arthritis 12/24/2020 Valvular heart disease 12/24/2020 BIGG (obstructive sleep apnea) 06/24/2020 DISH (diffuse idiopathic skeletal hyperostosis) 06/24/2020 Anemia 06/24/2020 Vitamin D deficiency 06/24/2020 CVD (cerebrovascular disease) 06/24/2020 B12 deficiency 06/24/2020 Pleural effusion 12/16/2019 Memory loss of unknown cause 12/01/2019 Assessment & Plan (12/01/2019 2:08 PM EDITORIAL INTERN): Bedside hearing testing intact. However, history of audiometry 4-5 years ago, pt qualified for hearing aids but did not pursue them. Repeat audiometry. Referral to Sleep Medicine re: sleep hygiene, possible CBT Review medications namely Metoprolol indication with Cardiology. May be contributing to low energy, depression. BP low normal today. 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 Subretinal heme near retinotomy cleared, gas cleared. RTC retina PRN, RT/RD symptoms reviewed. OK to follow up with local optom/freelance web designer Assessment & Plan (05/07/2019 2:34 PM CDT): POM1 from PPV/EL/AFx/Gas OD Doing well, retina attached, small subretinal hemorrhage near retinotomy, 5% C3F8 remaining Worse vision now likely from cataract -letter written to cataract surgeon; pt would like to have cataract surgery with local doctor Follow up in 2 months for DFE/OCT OD Assessment & Plan (04/02/2019 12:29 PM CDT): Post op week #1 status post (s/p) pars plana vitrectomy (PPV)/EL/AFx/Gas the right eye. Doing well. Discontinue Tobramycin Taper Pred forte (PF)3-2-[address] Follow up [address] Sultan RANKIN Assessment & Plan (03/25/2019 11:37 AM CDT): Post op day #1 status post (s/p) pars plana vitrectomy (PPV)/EL/AFx/C3F8 the right eye. Doing well. -Tobramycin QID the right eye -Pred forte (PF) QIDthe right eye -Shield at bedtime (qhs) -f/u 1 week , sooner PRN Assessment & Plan (03/22/2019 2:07 PM CDT): Patient referred by Dr. Mendoza for evaluation for retinal detachment of the right eye. Patient noted decreased vision in the right eye starting inferiorly about 6 days ago which has progressively been increasing up across his visual axis but has not crossed midline. Patient denies any trauma or other incident cause. Patient is phakic. Plan for add-on case on Sunday in Room M following Dr. 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 The patient noted that he would not have someone to bring him or drive him home either today or tomorrow if we were to go to surgery. I noted that delaying surgery could result in a potentially worse visual prognosis, and the patient understands this. I offered to do surgery for him on Sunday, and he agreed, and we will attempt to do this as the 3rd case for [place] on Sunday. No masses seen on B-scan although there are a qxx-buxkwzeo-izvnnxzcp regions in areas of the draining venous plexuses. Risks, benefits, alternatives were discussed with patient including but not limited to infection, bleeding, retinal detachment, damage to eye, loss of vision, loss of eye, deformity, double vision, increased pressure in the eye, cataract progression, inflammation in the eye that can spread to the other eye, postoperative positioning, altitude/travel precautions should gas bubble injection be required, the guarded prognosis for vision, the potential need for further procedures, and that no guarantees can be made. The patient understands these risks and all questions were answered. The patient then elected to proceed Age-related nuclear cataract, bilateral 03/22/20 19 Assessment & Plan (07/09/2019 3:12 PM CDT): Now matured OD status post (s/p) PPV. Sees local cataract surgeon in 2 weeks. Assessment & Plan (05/07/2019 2:35 PM CDT): Worse cataract OD Send to local cataract surgeon Assessment & Plan (03/22/2019 1:53 PM CDT): -Not visually significant, continue to monitor for progression -informed patient that the right eye cataract may require extraction has vitrectomy surgery can expedite the progression of cataract formation Vitreous syneresis, bilateral 03/22/2019 Assessment & Plan (03/22/2019 1:54 PM CDT): -Stable, continue to monitor -Signs and symptoms of retinal detachment and tears discussed with the patient Lung nodule 11/19/2018 Aortic root dilation 10/30/2018 Gastroesophageal reflux disease without esophagi tis 06/06/2018 Essential hypertension 06/06/2018 Benign prostatic hyperplasia with urinary obstru ction 08/06/2017 Constipation 10/31/2016 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 11/05/2013 Resolved Problems Problem Noted Date Diagnosed Date Resolved Date Cough 01/24/2019 06/13/2019 Immunizations Immunization Administration Dates Next Due Influenza, Quadrivalent, Hig h Dose, Preservative Free, Intrr 06/15/2021,06/06/2020 Influenza, Trivalent, Adjuva nted, Intramuscular 07/07/2019 Influenza, Trivalent, High D ose, Split, Preservative Free, Intramuscular 08/13/2018,06/05/2017,07/06/2016,07/07 Influenza, Trivalent, IM (MDV) 06/26/2014 Influenza, Trivalent, Preser vative Free, Intramuscular 07/14/2015,06/15/2013 Influenza, Unspecified 08/14/2018,08/14/2018 Pfizer SARS-CoV-2 Monovalent Vaccination (12+ Yrs) PURPLE 07/18/2021,12/31/2020,12/09/2020 Pneumococcal Conjugate PCV 13 07/15/2016, 016 Pneumococcal Polysaccharide PPV23 11/13/2013 Tdap 11/15/2013 ZOSTER LIVE 06/15/2013 ZOSTER Recombinant 09/06/2019,07/04/2019 Surgical History Surgery Date Site/Laterality Comments INGUINAL HERNIA REPAIR 10/15/1999 - 10/14/2000 Left MT RPR UMBILICAL HERNIA < 5 YRS REDUCIBLE 03/02/2005 N/A MT BIOPSY OF SKIN LESION EYE SURGERY RETINAL DETACHMENT SURGERY 03/24/[address] Salcido VITRECTOMY 03/24/2019 Right RRD repair c Dr. Salcido TURP / TRANSURETHRAL INCISION / DRAINAGE PROSTATE N/A [facility] SURGERY Medical History Medical History Date Comments History of recurrent pneumonia Closed wedge compression fra cture of second lumbar vertebra (HCC) Compression fracture of L 2 lumbar vertebra Cough Otitis media of left ear Hypertension Gastric ulcer Back pain Fracture of phalanx of thumb 02/2017 His tory of fracture of phalanx of thumb - left, trauma, February 2017; s/p ORIF Hyperlipidemia GERD (gastroesophageal reflux disease) Retinal detachment Diverticulitis BPH (benign prostatic hyperplasia) Osteoarthritis cervical spine Dilatation of aorta Dementia (HCC) Family History Medical History Relation Name Comments Coronary artery disease Mother at 74, [place] Parkinsonism Sister 1 Skin cancer Sister 1 Breast cancer Sister 2 Colon cancer Neg Hx Prostate cancer Neg Hx Relation Name Status Comments Father (Age 30) MVA Mother (Age 75) Sister 1 Sister 2 Social History Tobacco Use Types Packs/Day Years Used Date Smoking Tobacco: Former Cigarettes 1 18 0 10/29/1955 - 10/29/1973 Smokeless Tobacco: Never Alcohol Use Standard Drinks/Week Comments Yes 0 (1 standard drink = 0.6 oz pur e alcohol) 12-14/week AUDIT-C Answer Date Recorded Frequency of Alcohol Consumption 4 or more times a week 06/13/2019 Average Number of Drinks 1 or 2 019 Frequency of Binge Drinking Not on file 05/17 PHQ-2 Answer Date Recorded PHQ-2 Total Score (If total score is 3 or more points, staff should administer the PHQ-9) 0 07/15/2021 Sex and Gender Information Value Date Recorded Sex Assigned at Not on file Legal Sex Male 8:53 PM EDITORIAL INTERN Gender Identity Not on file Sexual Orientation Not on file 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 Not on file Not on file Not on f ile Last Filed Vital Signs Vital Sign Reading Time Taken Comments Blood Pressure 112/70 02/15/2022 9:20 AM CDT Pulse 84 02/15/2022 9:20 AM CDT Temperature 36.7 C (98.1 F) 11/10/2021 10:30 AM EDITORIAL INTERN Respiratory Rate 16 12/16/2019 10:21 AM EDITORIAL INTERN Oxygen Saturation 98% 02/15/2022 9:20 AM CDT Inhaled Oxygen Concentration - - Weight 79.4 kg (175 lb) 02/15/2022 9:20 AM CDT Height 180.3 cm (5' 11) 02/15/2022 9:20 AM CDT Body Mass Index 24.41 02/15/2022 9:20 AM CDT Plan of Treatment Not on file Insurance MEDICARE ADVANTAGE MEDICARE ADVANTAGE [facility] MEDICARE ADVANTAGE Advance Directives For more information, please contact: [phone] Documents on File Type Date Recorded Patient Skin Grader Expl anation ADVANCE DIRECTIVE 05/10/2020 12:32 PM David r of Hacksaw Inspector-Medical Healthcare Agents on File Name Relationship Healthcare Agent Relationshi p Communication [place] Hannawrisidoro Daughter First Alternate Health Care Agent Care Teams Clearance Representative Relationship Specialty Start Date End Date Stephen Seo MD PhD [address] [facility] [address] [place] [address] Medical Oncologist/Waterproof Bag Sewer Medical Oncology 06/06/18 Fang Lacey MD [address] [facility] [address] [place] [address] Referring Physician Dermatology 06/06/18 Oral Vanegas MD [address] [facility] [address] [place] [address] Consulting Physician Gastroenterology 06/06/18 Jeevan Sanchez MD [address] [facility] [address] [place] [address] Referring Physician Urology 06/06/18 Andriy Draper MD [address] [place] [address] Surgeon Plastic Surgery 06/06/18 Rell Campbell MD [address] [place] [address] Referring Physician Cardiology 06/13/19 Praveen Diana Chi, MD [address] [place] [address] Referring Physician Pulmonary Disease 06/13/19 Pillo Cantu MD [address] [place] [address] Referring Physician Neurology 06/24/20 Candi Dunaway MD PhD [address] [place] [address] Consulting Physician Neurology 06/24/20 Ashley Davidson MD [address] [place] [address] Consulting Physician Dermatology 12/23/20
--- OUTSIDE RECORDS SUMMARY | 2025-09-28 23:37 | XMS_ITS | Encounter Summary ---
Author Organization [facility] Address 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
--- OUTSIDE RECORDS SUMMARY | 2025-09-28 23:37 | XMS_ITS | Encounter Summary ---
Author Organization [facility] Address [address] [facility] [place] [address] Care Team Providers Care Railroad Car Letterer Name Role Phone Case Jacobsen MD Primary Care Provider [phone] Encounter Details Date Type Department Care Team (Late st Contact Info) Description 08/09/2020 Telephone [facility] [address] [place], [place] [id number] Ashley Davidson MD [address] [facility] [address] [place] [address] Social History Tobacco Use Types Packs/Day Years Used Date Smoking Tobacco: Former Smokeless Tobacco: Never Alcohol Use Standard Drinks/Week Comments Yes 0 (1 standard drink = 0.6 oz pur e alcohol) Sex and Gender Information Value Date Recorded Sex Assigned at Not on file 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 Patients significant other/POA called and was concerned about the wound and stated it bled all Jian night. So she put pressure on the wound 15 minutes on and then off, which helped at the time. She is worried today of a possible infection, so she emailed me a picture of the scalp in which I forwarded to Dr. Davidson. Their call back number is [phone]. Keeley Sahu. FANNY documented in this encounter Plan of Treatment Not on file documented as of this encounter Visit Diagnoses Not on filedocumented in this encounter Care Teams Railroad Car Letterer Relationship Specialty Start Date End Date Case Jacobsen MD [address] [place] [address] [address] PCP - General 08/06/20 documented as of this encounter
--- OUTSIDE RECORDS SUMMARY | 2025-09-28 23:37 | XMS_ITS | Encounter Summary ---
Author Organization [facility] Address 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
--- OUTSIDE RECORDS SUMMARY | 2025-09-28 23:37 | XMS_ITS ---
Author Organization [facility] Address [address] [place] [address] Care Team Providers Care Director Of Product Design Name Role Phone Stephen Seo MD PhD Unavailable [phone] Fang Lacey MD Unavailable Oral Vanegas MD Unavailable [phone] Jeevan Sanchez MD Unavailable [phone] Andriy Draper MD Unavailable [phone] Rell Campbell MD Unavailable [phone] Praveen Diana Chi, MD Unavailable Pillo Cantu MD Unavailable Candi Dunaway MD PhD Unavailable Ashley Davidson MD Unavailable [phone] Active Problems Problem Noted Date Diagnosed Date [...] 12/01/2019 Assessment & Plan (12/01/2019 2:08 PM PLANT INSPECTOR): Bedside hearing testing intact. 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 Subretinal heme near retinotomy cleared, gas cleared. RTC retina PRN, RT/RD symptoms reviewed. OK to follow up with local optom/lithographic plate maker Assessment & Plan (05/07/2019 2:34 PM CDT): [...] in Room M following Dr. 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 No masses seen on B-scan although there are a idv-hxuzradc-wlhgngeet regions in areas of the draining venous [...] skin 08/27/2014 Osteoarthritis of cervical spine 11/05/2013 Current Treatment and Therapy Plans No current plan information found. Past Treatment and Therapy Plans No past plan information found. Lifetime Dose Tracking * Chemical Lifetime Dose Automatic Entry Manual Entr y DLP 1,945 mGycm 1,945 mGycm 0 mGycm Resolved Problems Problem Noted Date Diagnosed Date Resolved Date Cough 01/24/2019 06/13/2019
--- OUTSIDE RECORDS SUMMARY | 2025-09-28 23:37 | XMS_ITS | Encounter Summary ---
Author Organization [facility] Address 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
[2025-09-28 23:38] LABS: INR 1.2; Prothrombin Time 14.9 Seconds (11.1-14.7)
[2025-09-28 23:39] LABS: Partial Thromboplastin Time 27.9 Seconds (22.3-36.8)
[2025-09-28 23:50] VITALS: O2SAT 100
[2025-09-28] MEDS: HALOPERIDOL LACTATE 5 MG/ML VIAL 2.5 MG IM (23:57)
[2025-09-29] VITALS (11 sets, daily range): BP systolic 96–128; BP diastolic 44–82; PULSE 58–108; RESP 18; TEMP 36.6–37; O2SAT 90–100
[2025-09-29 00:12] LABS: Add Urine Microscopic? YES; Appearance Urine Clear (Clear); Glucose Urine UA Negative (Negative); Leukocyte Esterase Ur Trace LEU/UL (Negative); Need Manual Microscopic Reviewed; Nitrate Urine Negative (Negative); Specific Grav Ur 1.020 (1.001-1.035)
[2025-09-29] MEDS: levETIRAcetam 1500MG/NACL100ML 1,500 MG/100 ML BAG 400 MG IVPB (00:44)
[2025-09-29] MEDS: ONDANSETRON INJ 4 MG/2 ML VIAL IV PUSH (01:25)
--- NOTE | 2025-09-29 01:31 | WPCEDHO ---
ED Hand Off Checklist All vitals saved: Yes IV Site documented: Yes All med administrations documented: Yes Triage Note Triage Note Pt to ED via EMS coming [place] 09/28/25 22:32 [facility] in [place]. Per EMS pt had a tonic/clonic seizure that was witnessed through a camera that lasted for about a minute. Pt has a hx of dementia and hyperlipidemia. Pt lung sounds clear. Pt is not answering any questions at this time. pt uncooperative at this time. Per EMS pt baseline is up and walking that mumbles. Per EMS pt did not know pt baseline orientation status. Allergies ibuprofen Allergy (Unknown, Verified 02/26/25 10:40) Rash naproxen Allergy (Unknown, Verified 02/26/25 10:40) Rash Sulfa (Sulfonamide Antibiotics) Allergy (Unknown, Verified 02/26/25 10:40) Unknown ciprofloxacin Adverse Reaction (Unknown, Verified 02/26/25 10:40) Rash Family History (Last Reviewed 09/28/25 @ 23:19 by Edmond Russell MD) Mother Age older than 80 years Father MVA (motor vehicle accident) Administered/Completed Medications Discontinued Medications Haloperidol Lactate (Haloperidol Lactate 5 Mg/Ml Vial) 2.5 mg IM ONCE ONE Stop: 09/28/25 23:38 Last Admin: 09/28/25 23:57 Dose: 2.5 mg Documented By: ALEXEY Levetiracetam (Keppra Iv) 1,500 mg in 100 mls @ 400 mls/hr IVPB ONCE STA Stop: 09/29/25 00:36 Last Infusion: 09/29/25 01:24 Dose: Infused Documented By: Admin: 09/29/25 00:44 Dose: 400 mls/hr Documented By: ALEXEY Ondansetron HCl (Ondansetron Inj 4 Mg/2 Ml Vial) 4 mg IV PUSH ONCE STA Stop: 09/29/25 01:13 Last Admin: 09/29/25 01:25 Dose: 4 mg Documented By: ALEXEY Interventions/Assessments IV / Saline Lock, Insert Start: 09/28/25 22:31 Freq: QSHIFT Status: Active Protocol: Document 09/29/25 01:29 ALEXEY (Rec: 09/29/25 01:30 ALEXEY [id number]) IV Assessment Peripheral Access Right Arm, Upper IV Catheter Access Initiated IV Insertion Date 09/29/25 IV Insertion Time 01:30 Catheter Gauge 18 IV Insertion 1 Attempts IV Site Assessment WNL IV Care and WNL Maintenance Peripheral Access Left Wrist IV Catheter Access Discontinued Access Additional IV pt pulled out Comments Last Vital Signs Temperature 98.0 F 09/29/25 01:28 Pulse Rate 84 09/29/25 01:28 Respiratory Rate 18 09/29/25 01:28 Pulse Oximetry 100 09/29/25 01:28 Blood Pressure 128/82 09/29/25 01:28 Blood Pressure Mean 97 09/29/25 01:28 Blood Pressure Position Supine 09/29/25 01:28 Oxygen Delivery Room Air 09/28/25 23:50 Weight 79.6 kg 09/28/25 22:32 Last Result - Abnormals Only RBC 3.59 M/mm3 (4.6-6.20) L 09/28/25 23:10 Hgb 10.9 g/dL (14.0-18.0) L 09/28/25 23:10 Hct 33.1 % (42.0-52.0) L 09/28/25 23:10 Lymph % (Auto) 16.4 % (18.3-44.2) L 09/28/25 23:10 [place] # (Auto) 0.7 K/mm3 (0.1-0.6) H 09/28/25 23:10 Absolute Neuts (auto) 6.9 K/mm3 (1.3-6.7) H 09/28/25 23:10 PT 14.9 Seconds (11.1-14.7) H 09/28/25 23:10 Sodium 135 mmol/L (137-145) L 09/28/25 23:10 Glucose 124 mg/dL (65-110) H 09/28/25 23:10 Urine Urobilinogen 2.0 mg/dL (<2.0) H 09/28/25 23:48 Leukocyte Esterase Rfl Trace MAC/UL (Negative) H 09/28/25 23:48 Most Recent Suicide Severity Rating Suicide Severity Rating NO RISK INDICATED 09/28/25 22:32
--- NOTE | 2025-09-29 02:04 | PM.IMHP2 ---
H&P: HPI History of Present Illness Date/Time: 09/29/25 02:04 Chief Complaint: Seizure Narrative: This is an 89-year-old male patient who has severe dementia and is only orientated to himself baseline. The patient was brought into the emergency room via ambulance from home the [facility] facility after he experienced an episode of visualized tremors. The patient was very agitated in the emergency room. The patient is a DNR and the ER physician did reach out to the family members to determine further evaluation of this condition. Patient is comfort measure only. However the family members wanted to proceed with further investigation and workup for these tremors. Preliminary head CT was read as no acute hemorrhage, hydrocephalus, or herniation. H&H is 10.9 and 33.1. Sodium slightly low at 135. Glucose is 124. Urine was clear no signs and symptoms of urinary tract infection. He was given IV Keppra, and Haldol in the emergency room. Neurology consult was placed per ED provider. Information for this H&P was obtained through his records. The patient is not a reliable source. The patient is being admitted to observation status on the date of service 09/29/2025. Review of Systems Review of Systems: ROS unobtainable: Yes unobtainable due to mental status PMFSH Past Medical History Medical History Left cataract maturing GERD (gastroesophageal reflux disease) Dementia Hyperlipidemia Hypertension Surgical History Surgical History Status post cataract extraction and insertion of intraocular lens of right eye History of left inguinal hernia repair History of umbilical hernia repair Family History Family History Mother Age older than 80 years Father MVA (motor vehicle accident) His father 2 months before patient was born. Social History Social History (Updated 09/29/25 @ 04:03 by Talya Zhong APRN) Social History: He is and retired. Code status: DNR Smoking packs per day: 1 Smoking cigarettes per day: 20.0 Years smoked: 15 Smoking pack-years: 15.00 Smoking status: Former smoker Tobacco type: cigarettes Second hand tobacco smoke exposure: No Alcohol intake: current Alcohol use details: He rarely drinks alcohol. 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 His undergraduate degree was in math. His master's degree was in French. Gender identity (if verbalized by the patient): Male Sexual Orientation (if Verbalized by the Patient): Straight or Heterosexual Spiritual care concerns: No Meds Home Medications and Allergies Home Medications ?Medication ?Instructions ?Recorded ?Confirmed ?Type vitamins A,C,Z-nyud-ptnnxv 4,296 1 cap PO BID 06/09/20 09/29/25 History mcg-226 mg-90 mg capsule (ICaps AREDS) memantine 10 mg tablet 10 mg PO BID #180 tabs 09/09/24 09/29/25 Rx atorvastatin 20 mg tablet 20 mg PO DAILY #90 tabs 10/13/24 09/29/25 Rx bacitracin zinc 500 unit/gram 1 applic topical BID PRN wound 12/15/24 09/29/25 Rx topical ointment care #28.4 grams fluoxetine 20 mg capsule See Rx Instructions .Route 03/25/25 09/29/25 Rx .COMPLEX #90 caps omeprazole 40 mg capsule,delayed 40 mg PO BID #180 caps 05/25/25 09/29/25 Rx release Allergies Allergy/AdvReac Type Severity Reaction Status Date / Time ibuprofen Allergy Unknown Rash Verified 02/26/25 10:40 naproxen Allergy Unknown Rash Verified 02/26/25 10:40 Sulfa (Sulfonamide Allergy Unknown Unknown Verified 02/26/25 10:40 Antibiotics) ciprofloxacin AdvReac Unknown Rash Verified 02/26/25 10:40 Vital Signs Vital Signs - 24 hr 09/28/25 22:32 09/28/25 23:50 09/29/25 01:28 Temperature 97.8 F 98.0 F Pulse Rate 69 84 Respiratory Rate 18 18 Blood Pressure 125/80 128/82 Pulse Oximetry 94 100 100 Oxygen Delivery Room Air Room Air 09/29/25 02:00 Temperature 98.0 F Pulse Rate 84 Respiratory Rate 18 Blood Pressure 128/82 Pulse Oximetry 100 Oxygen Delivery Exam Const: General: cooperative, comfortable, no acute distress, well developed, Physically active, average body habitus and well nourished Nutritional Appearance: average body habitus Orientation/consciousness: oriented to person Other: Patient is thin and only orientated to self. HENMT: Head: normal to inspection, No palpable skull fracture present, normocephalic, atraumatic and abrasion Other: He is very hard of hearing Eyes: General: appearance normal, both eyes and all related structures Alignment and Position: alignment normal Periorbital: periorbital findings normal Eyelids: eyelids normal Neck: Neck: normal visual inspection, full ROM, no lymphadenopathy and trachea midline Chest: Chest palpation & inspection: normal inspection of the chest Resp: Effort & Inspection: normal respiratory effort Auscultation: clear to auscultation bilaterally Cardio: Palpation: normal PMI Rate: regular rate Rhythm: regular rhythm Heart sounds: S1 normal heart sound present and S2 normal heart sound present Peripheral pulses: Peripheral pulses 2+ throughout GI: Inspection: normal to inspection Auscultation: normal bowel sounds Rectal Exam: deferred Urinary Catheter: Urinary Catheter: patent and draining and urine clear Skin: General skin exam: normal color Lesions: no lesions Rashes: no rashes Trauma: no lacerations or abrasions Wounds: no wounds Nails: normal Other: Average balding male Neuro: General: oriented to person and oriented to place Extrem: General: normal to inspection Right upper extremity: normal to inspection and shoulder/upper arm Left upper extremity: normal to inspection and shoulder/upper arm Right lower extremity: normal to inspection Left lower extremity: normal to inspection Psych: Affect: normal affect Attitude: cooperative Other: Patient was agitated in the emergency. Results Labs Labs: Short CBC 09/28/25 Range/Units 23:10 WBC 9.5 (4.5-10.0) K/mm3 Hgb 10.9 L (14.0-18.0) g/dL Hct 33.1 L (42.0-52.0) % Plt Count 220 (150-375) k/mm3 BMP 09/28/25 23:10 Sodium 135 L Potassium 4.0 Chloride 101 Carbon Dioxide 28 BUN 18 Creatinine 1.04 Glucose 124 H Calcium 9.1 Liver Function 09/28/25 Range/Units 23:10 Total Bilirubin 0.6 (0.2-1.3) mg/dL AST 23 (17-59) U/L ALT 12 (6-50) U/L Alkaline Phosphatase 113 (38-126) U/L Albumin 3.9 (3.5-5.1) g/dL Urine 12/15/25 Range/Units 23:48 Urine Color Yellow (Yellow) Urine Appearance Clear (Clear) Urine pH 6.5 (5.0-9.0) Ur Specific [place] 1.020 (1.001-1.035) Urine Protein Trace (Negative) mg/dL Urine Glucose (UA) Negative (Negative) mg/dL Attestation: I personally reviewed all lab results ECG Attestation: I personally reviewed and interpreted this ECG as follows: Interpretation: 79 CO 0 QRSd 94 QT 321 QTc 370 --[place]-- P 0 QRS 66 T 6 SUPRAVENTRICULAR RHYTHM NONSPECIFIC T-WAVE ABNORMALITY ABNORMAL RHYTHM ECG No previous ECG available for comparison Imaging CT scan - head: Attestation: I personally reviewed this imaging study Radiologist's impression: Preliminary report was read as nothing acute. Final report to follow. Quality VTE Prophylaxis VTE prophylaxis: mechanical ordered Assessment and Plan Assessment and plan (1) Witnessed seizure-like activity: Code(s): R56.9 - Unspecified convulsions Status: Acute Assessment and Plan: -seizure-like activity was noted per assisted staff as well as ER physician. -CT scan was reported as negative. -MRI and EEG have been ordered. -neurology has been consulted from the emergency room. -the patient has been started on Keppra. -seizure precautions (2) Depression: Code(s): F32.A - Depression, unspecified Status: Acute Assessment and Plan: -continue with Prozac (3) Hyperlipidemia: Code(s): E78.5 - Hyperlipidemia, unspecified Status: Acute Assessment and Plan: -continue with atorvastatin and monitor liver enzymes. (4) Dementia: Code(s): F03.90 - Unspecified dementia, unspecified severity, without behavioral disturbance, psychotic disturbance, mood disturbance, and anxiety Status: Acute Assessment and Plan: Continue with Aricept, fluoxetine and Namenda.
--- NOTE | 2025-09-29 02:24 | PC.NURSE ---
PATIENT ARRIVED ON 3 MEDSURG AT 0149
[2025-09-29 06:15] LABS: Hematocrit 32.4 % (42.0-52.0); Hemoglobin 10.7 g/dL (14.0-18.0); Immature Granulocyte Percent A 0.4 % (0-0.5); Lymphocytes Absolute Auto 1.18 K/mm3 (0.9-3.2); Mean Corpuscular HGB Conc 33.0 g/dl (32-36); Mean Corpuscular Hemoglobin 30.5 pg (26-34); Mean Corpuscular Volume 92.3 fl (80-100); Nucleated Red Blood Cells Absolute Auto 0.000 K/mm3 (0.0-0.012); Nucleated Red Blood Cells Perc 0.0 % (0.0-0.2); Platelet Count Result 226 k/mm3 (150-375); Red Blood Count 3.51 M/mm3 (4.6-6.20); White Blood Count 11.0 K/mm3 (4.5-10.0)
[2025-09-29 06:44] LABS: Anion Gap 5 mmol/L (4-12); Blood Urea Nitrogen 18 mg/dL (9-20); Calcium 9.2 mg/dL (8.4-10.2); Carbon Dioxide 29 mmol/L (22-30); Chloride 101 mmol/L (98-107); Estimated Glomerular Filt Rate > 60; Glucose 98 mg/dL (65-110); Potassium 4.0 mmol/L (3.4-5.0); Sodium 135 mmol/L (137-145)
[2025-09-29] MEDS: levETIRAcetam 500MG/NACL 100ML 500 MG/100 ML BAG 400 MG IVPB ×2 (08:23→20:47)
--- NOTE | 2025-09-29 11:39 | WPDNEUROLOGY ---
Neurology EEG Report General Information Date of Study: 09/29/25 TEST EEG DIAGNOSIS Seizures CONDITION OF RECORDING drowsy And asleep. EEG NUMBER [id number] CLINICAL HISTORY 89 years old male had a witnessed episode of tremors and shaking at his memory care facility. Patient has ongoing history of severe dementia and is only oriented to himself at baseline and also was very agitated when arriving to the emergency room. EEG DESCRIPTION Whole record consists of low to medium voltage 2 to 4 hertz per 2nd delta activity admixed with low-voltage 15 to 18 hertz per 2nd beta activity. Bilateral symmetrical sleep activity is noted with periods of intermittent decrement in the amplitude of 2 to 3 hertz per 2nd delta activity. Photic stimulation not done. Hyperventilation not done. Non paroxysmal. Nonfocal P nonlateralizing. IMPRESSION Abnormal record due to the presence of bihemispheric slow activity with intermittent periods of decrement in the background rhythm ,these abnormalities are suggestive of organic or metabolic encephalopathy or neuro degenerative process in addition to the possibility of postictal state,clinical correlation recommended. There is no evidence of active paroxysmal activity.
--- NOTE | 2025-09-29 12:14 | PM.IMPN2 ---
Assessment and Plan Assessment and Plan (1) Dementia: Code(s): F03.90 - Unspecified dementia, unspecified severity, without behavioral disturbance, psychotic disturbance, mood disturbance, and anxiety Status: Acute (2) Witnessed seizure-like activity: Code(s): R56.9 - Unspecified convulsions Status: Acute (3) Seizure: Code(s): R56.9 - Unspecified convulsions Status: Acute Plan 89-year-old male with past medical history of severe dementia and is only orientated to himself baseline presented to the ER via ambulance from home/memory care facility after he experienced an episode of visualized tremor. Patient was very agitated in the ER. Patient is DNR. received Keppra, Haldol in the ER. Neurology was consulted. CT head shows Probable subarachnoid hemorrhage right frontal lobe. I called the daughter over the phone who is the power of deputy prosecuting attorney. She is requesting further workup which includes MRI, but also at the same time does not want very aggressive measures which would include possible transfer to a higher level care with neurosurgery involvement. 1. Altered mental status/seizure: CT head shows possible subarachnoid hemorrhage in right frontal lobe October tele monitoring Seizure precaution Fall precaution Continue with Keppra IV Will keep him NPO Eeg MRI brain Neurology consult Will hold all home medications due to mental status Would prefer to have a speech eval once mental status is better No antiplatelet, anticoagulant for now 2. DVT prophylaxis: SCDs 3. Code status: DNR, once MRI brain is done, results are available will discuss with daughter about further care/goals of care 4. Disposition: Pending improvement, poor prognosis overall Time Spent With Patient Time with patient: 25 - 35 minutes Subjective Date/time seen: 09/29/25 12:14 Interval history: Remains lethargic Unable to open eyes, carry out any conversation Caregiver and ex spouse at bedside Review of Systems Review of Systems: ROS unobtainable: Yes unobtainable due to medical condition and unobtainable due to mental status Exam Narrative: GENERAL: Lethargic HEAD: [Normocephalic EYES: Anicteric sclera ENT: Dry mucous membrane NECK: Supple. CHEST: Clear to auscultation, no added sounds heard HEART: Regular rate and rhythm ABDOMEN: Soft, nondistended EXTREMITIES: No edema SKIN: Warm, dry, no rash. NEURO: Patient is very lethargic Objective Data Vital Signs Vital Signs: Vital Signs - 24 hr 09/28/25 22:32 09/28/25 23:50 09/29/25 01:28 Temperature 97.8 F 98.0 F Pulse Rate 69 84 Respiratory Rate 18 18 Blood Pressure 125/80 128/82 Pulse Oximetry 94 100 100 Oxygen Delivery Room Air Room Air 09/29/25 02:00 09/29/25 02:11 09/29/25 04:00 Temperature 98.0 F 97.8 F Pulse Rate 84 108 H 69 Respiratory Rate 18 18 Blood Pressure 128/82 97/44 L Pulse Oximetry 100 90 Oxygen Delivery 09/29/25 08:00 09/29/25 08:20 Temperature 98 F Pulse Rate 73 Respiratory Rate 18 Blood Pressure 100/52 L Pulse Oximetry 98 Oxygen Delivery Room Air Intake/Output Intake/Output: Intake & Output 09/26/25 09/27/25 09/28/25 09/29/25 23:59 23:59 23:59 23:59 Intake Total 200 Output Total 50 500 Balance -50 -300 Meds/Results Medications: Active Medications Generic Name Dose Route Start Last Admin Trade Name Freq PRN Reason Stop Dose Admin Acetaminophen 650 mg 09/29/25 00:48 Acetaminophen 325 Mg Tablet PO Q4H PRN Mild Pain (1-3) or Fever Atorvastatin Calcium 20 mg 09/29/25 09:00 09/29/25 11:14 Atorvastatin 20 Mg Tablet PO Not Given On Hold: 09/29/25 12:11 DAILY REMI Bacitracin 1 applic 09/29/25 04:13 Bacitracin Ointment 15 Gm Tube TOPICAL Q12H PRN Wound Care Fluoxetine HCl 20 mg 09/29/25 09:00 09/29/25 11:15 Fluoxetine Hcl 20 Mg Capsule BY MOUTH Not Given On Hold: 09/29/25 12:11 DAILY REMI Levetiracetam 500 mg in 100 mls @ 400 mls/hr 09/29/25 09:00 09/29/25 08:38 Keppra Iv IVPB Infused Q12HR REMI Infusion Memantine 10 mg 09/29/25 09:00 09/29/25 11:15 Memantine 10 Mg Tablet PO Not Given On Hold: 09/29/25 12:11 Q12HR REMI Ondansetron HCl 4 mg 09/29/25 00:48 Ondansetron Inj 4 Mg/2 Ml Vial IV PUSH Q4H PRN Nausea Pantoprazole Sodium 40 mg 09/29/25 09:00 09/29/25 11:15 Pantoprazole 40 Mg Tablet PO Not Given On Hold: 09/29/25 12:11 Q12HR [facility] Radiology Results: ITS Impressions Head CT 09/29/25 07:21 IMPRESSION: 1. Probable subarachnoid hemorrhage right frontal lobe. Recommend short interval follow-up repeat scan. Labs Labs: Laboratory Results - last 24 hr 09/28/25 09/28/25 09/29/25 23:10 23:48 05:19 WBC 9.5 11.0 H RBC 3.59 L 3.51 L Hgb 10.9 L 10.7 L Hct 33.1 L 32.4 L MCV 92.2 92.3 MCH 30.4 30.5 MCHC 32.9 33.0 RDW 11.9 11.9 Plt Count 220 226 MPV 10.0 10.8 H Immature Gran % (Auto) 0.3 0.4 Neut % (Auto) 73.0 82.1 H Lymph % (Auto) 16.4 L 10.7 L [place] % (Auto) 7.8 6.5 Eos % (Auto) 2.1 0.1 Baso % (Auto) 0.4 0.2 Lymph # (Auto) 1.55 1.18 [place] # (Auto) 0.7 H 0.7 H Eos # (Auto) 0.2 0.0 Baso # (Auto) 0.0 0.0 Abs Immat Gran (auto) 0.03 0.04 H Absolute Neuts (auto) 6.9 H 9.1 H Absolute Nucleated RBC 0.000 0.000 Nucleated RBC % 0.0 0.0 PT 14.9 H INR 1.2 APTT 27.9 Sodium 135 L 135 L Potassium 4.0 4.0 Chloride 101 101 Carbon Dioxide 28 29 Anion Gap 6 5 BUN 18 18 Creatinine 1.04 0.95 Estim Creat Clear Calc Not Reportable Not Reportable Estimated GFR > 60 > 60 Glucose 124 H 98 Lactic Acid 1.4 Calcium 9.1 9.2 Total Bilirubin 0.6 AST 23 ALT 12 Alkaline Phosphatase 113 Total Protein 7.5 Albumin 3.9 Urine Color Yellow Urine Appearance Clear Urine pH 6.5 Ur Specific [place] 1.020 Urine Protein Trace Urine Glucose (UA) Negative Urine Ketones Negative Ur Blood (Man) Negative Urine Nitrate Negative Urine Bilirubin Negative Urine Urobilinogen 2.0 H Add Ur Microanalysis Reviewed Leukocyte Esterase Rfl Trace H Urine RBC 0-2 Urine WBC 0-5 Ur Squamous Epith Cells None seen Urine Bacteria None seen Urine Casts 3-5 Quality VTE Prophylaxis VTE prophylaxis: mechanical ordered
--- NOTE | 2025-09-29 14:07 | WPDNEURCNPN ---
Assessment and Plan Assessment and plan (1) Seizure: Code(s): R56.9 - Unspecified convulsions Status: Acute Plan 1. Ongoing progressive dementia 2. Question about the generalized seizure 3. DNR status 4. Basic lab is normal except mildly anemic. 4. If the question of seizure is being entertained and EEG can be obtained. Consult date: 09/29/25 HPI: Alfredo Morrissey is a 89 year old male Admitted to the hospital through the emergency room where he was transferred from [facility] care facility after a visualize shake raising the possibility of generalized seizure. Patient did not become unconscious and was acting appropriately. There was no history of recent or remote trauma at ase by observation as well he was alert to his name but otherwise no coherent speech. Patient has been reportedly allergic to multiple medications as listed particularly sulfa, Cipro, naproxen, and ibuprofen. He has ongoing history of 1. Dementia 2. Hypertension 3. Hyper lipidemia 4. Status post cataract extraction and insertion of intra-ocular lens in the right eye. He does have ongoing history of years smoked 15, but former smoker, and rarely drinking alcohol. On initial evaluation in the emergency room he was documented to have no signs of trauma, was able to move all extremities and was alert to his name. His vital signs were normal, CBC was normal, BMP was borderline sodium of 135, UA normal, and master scan was normal, head CT scan revealed no epidural subdural there is a question raised about probable subarachnoid hemorrhage right frontal lobe, chest x-ray compatible with COPD bilateral hyperinflation, has been continued on memantine 10mg b.i.d. omeprazole 40mg b.i.d. ,fluoxetine 1 capsule daily ,and atorvastatin 20mg daily. Review of Systems Review of Systems: All systems reviewed & are unremarkable except as noted in HPI and below PMFSH Past Medical History Medical History Left cataract maturing GERD (gastroesophageal reflux disease) Dementia Hyperlipidemia Hypertension Surgical History Surgical History Status post cataract extraction and insertion of intraocular lens of right eye History of left inguinal hernia repair History of umbilical hernia repair Family History Family History Mother Age older than 80 years Father MVA (motor vehicle accident) His father 2 months before patient was born. Social History Social History (Updated 09/29/25 @ 04:03 by Talya Zhong APRN) Social History: He is and retired. Code status: DNR Smoking packs per day: 1 Smoking cigarettes per day: 20.0 Years smoked: 15 Smoking pack-years: 15.00 Smoking status: Former smoker Tobacco type: cigarettes Second hand tobacco smoke exposure: No Alcohol intake: current Alcohol use details: He rarely drinks alcohol. 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 His undergraduate degree was in math. His master's degree was in Syriac. Gender identity (if verbalized by the patient): Male Sexual Orientation (if Verbalized by the Patient): Straight or Heterosexual Spiritual care concerns: No Meds Home Medications and Allergies Home Medications ?Medication ?Instructions ?Recorded ?Confirmed ?Type vitamins A,C,V-cfrj-uqplis 4,296 1 cap PO BID 06/09/20 09/29/25 History mcg-226 mg-90 mg capsule (ICaps AREDS) memantine 10 mg tablet 10 mg PO BID #180 tabs 09/09/24 09/29/25 Rx atorvastatin 20 mg tablet 20 mg PO DAILY #90 tabs 10/13/24 09/29/25 Rx bacitracin zinc 500 unit/gram 1 applic topical BID PRN wound 12/15/24 09/29/25 Rx topical ointment care #28.4 grams fluoxetine 20 mg capsule See Rx Instructions .Route 03/25/25 09/29/25 Rx .COMPLEX #90 caps omeprazole 40 mg capsule,delayed 40 mg PO BID #180 caps 05/25/25 09/29/25 Rx release Allergies Allergy/AdvReac Type Severity Reaction Status Date / Time ibuprofen Allergy Unknown Rash Verified 02/26/25 10:40 naproxen Allergy Unknown Rash Verified 02/26/25 10:40 Sulfa (Sulfonamide Allergy Unknown Unknown Verified 02/26/25 10:40 Antibiotics) ciprofloxacin AdvReac Unknown Rash Verified 02/26/25 10:40 Vital Signs Vital Signs - 24 hr 09/28/25 22:32 09/28/25 23:50 09/29/25 01:28 Temperature 36.6 C 36.7 C Pulse Rate 69 84 Respiratory Rate 18 18 Blood Pressure 125/80 128/82 Pulse Oximetry 94 100 100 Oxygen Delivery Room Air Room Air 09/29/25 02:00 09/29/25 02:11 09/29/25 04:00 Temperature 36.7 C 36.6 C Pulse Rate 84 108 H 69 Respiratory Rate 18 18 Blood Pressure 128/82 97/44 L Pulse Oximetry 100 90 Oxygen Delivery 09/29/25 08:00 09/29/25 08:20 09/29/25 12:00 Temperature 36.6 C Pulse Rate 73 58 L Respiratory Rate 18 Blood Pressure 100/52 L Pulse Oximetry 98 Oxygen Delivery Room Air Exam Narrative: Examination today revealed him to be laying in bed comfortable, no obvious acute distress, not spontaneously responding to the environment on left lower extremity hanging over the right lower extremity, head normocephalic with no bruit, neck supple with no meningeal signs, no spontaneous speech, pupils sluggish, extraocular movements only spontaneously full in the horizontal gaze did not follow the verbal commands appropriately there was no spontaneous nystagmus facial grimace was symmetrical tongue was in the oral cavity and there were no fasciculation of the tongue motor examination revealed him to be somewhat with increased tone in upper and lower extremities with questionable plantar responses and somewhat sluggish deep tendon reflexes cerebellar functions could not be carried out. Results Labs 09/29/25 05:19 09/29/25 05:19 Labs: Short CBC 09/28/25 09/29/25 Range/Units 23:10 05:19 WBC 9.5 11.0 H (4.5-10.0) K/mm3 Hgb 10.9 L 10.7 L (14.0-18.0) g/dL Hct 33.1 L 32.4 L (42.0-52.0) % Plt Count 220 226 (150-375) k/mm3 BMP 09/28/25 09/29/25 23:10 05:19 Sodium 135 L 135 L Potassium 4.0 4.0 Chloride 101 101 Carbon Dioxide 28 29 BUN 18 18 Creatinine 1.04 0.95 Glucose 124 H 98 Calcium 9.1 9.2 Liver Function 09/28/25 Range/Units 23:10 Total Bilirubin 0.6 (0.2-1.3) mg/dL AST 23 (17-59) U/L ALT 12 (6-50) U/L Alkaline Phosphatase 113 (38-126) U/L Albumin 3.9 (3.5-5.1) g/dL Urine 09/28/25 Range/Units 23:48 Urine Color Yellow (Yellow) Urine Appearance Clear (Clear) Urine pH 6.5 (5.0-9.0) Ur Specific [place] 1.020 (1.001-1.035) Urine Protein Trace (Negative) mg/dL Urine Glucose (UA) Negative (Negative) mg/dL
[2025-09-29] MEDS: HALOPERIDOL LACTATE 5 MG/ML VIAL IM (16:35)
[2025-09-29] MEDS: OLANZapine 5 MG, WATER, STERILE FOR INJECTION 2.1 ML IM (19:11)
[2025-09-30] VITALS (8 sets, daily range): BP systolic 120–136; BP diastolic 65–76; PULSE 53–80; RESP 16–20; TEMP 36.5–37.1; O2SAT 96–98
[2025-09-30 06:46] LABS: Hematocrit 32.3 % (42.0-52.0); Hemoglobin 10.5 g/dL (14.0-18.0); Immature Granulocyte Percent A 0.3 % (0-0.5); Lymphocytes Absolute Auto 2.00 K/mm3 (0.9-3.2); Mean Corpuscular HGB Conc 32.5 g/dl (32-36); Mean Corpuscular Hemoglobin 30.4 pg (26-34); Mean Corpuscular Volume 93.6 fl (80-100); Nucleated Red Blood Cells Absolute Auto 0.000 K/mm3 (0.0-0.012); Nucleated Red Blood Cells Perc 0.0 % (0.0-0.2); Platelet Count Result 207 k/mm3 (150-375); Red Blood Count 3.45 M/mm3 (4.6-6.20); White Blood Count 9.2 K/mm3 (4.5-10.0)
[2025-09-30 07:11] LABS: Anion Gap 8 mmol/L (4-12); Blood Urea Nitrogen 19 mg/dL (9-20); Calcium 9.0 mg/dL (8.4-10.2); Carbon Dioxide 25 mmol/L (22-30); Chloride 104 mmol/L (98-107); Estimated Glomerular Filt Rate > 60; Glucose 69 mg/dL (65-110); Magnesium 1.6 mg/dL (1.6-2.3); Potassium 3.5 mmol/L (3.4-5.0); Sodium 137 mmol/L (137-145)
--- NOTE | 2025-09-30 07:29 | PM.IMPN2 ---
Assessment and Plan Assessment and Plan (1) Dementia: Code(s): F03.90 - Unspecified dementia, unspecified severity, without behavioral disturbance, psychotic disturbance, mood disturbance, and anxiety Status: Acute (2) Witnessed seizure-like activity: Code(s): R56.9 - Unspecified convulsions Status: Acute (3) Seizure: Code(s): R56.9 - Unspecified convulsions Status: Acute Plan 89-year-old male with past medical history of severe dementia and is only orientated to himself baseline presented to the ER via ambulance from home/memory care facility after he experienced an episode of visualized tremor. Patient was very agitated in the ER. Patient is DNR. received Keppra, Haldol in the ER. Neurology was consulted. CT head shows Probable subarachnoid hemorrhage right frontal lobe. I called the daughter over the phone who is the power of criminal defense attorney. She is requesting further workup which includes MRI, but also at the same time does not want very aggressive measures which would include possible transfer to a higher level care with neurosurgery involvement. 1. Altered mental status/seizure: CT head shows possible subarachnoid hemorrhage in right frontal lobe October tele monitoring Seizure precaution Fall precaution Continue with Keppra IV Will keep him NPO Eeg MRI brain - will offer Valium for agitation prior to study Neurology consult Will hold all home medications due to mental status Would prefer to have a speech eval once mental status is better No antiplatelet, anticoagulant for now 2. DVT prophylaxis: SCDs 3. Code status: DNR, once MRI brain is done, results are available will discuss with daughter about further care/goals of care 4. Disposition: Pending improvement, poor prognosis overall Subjective Date/time seen: 09/30/25 07:29 Interval history: Patient examined in bed, still lethargic although is talking to myself and sitter, however conversation isnt appropriate and he remains oriented to self only. Planning to obtain Brain MRI today, will offer low dose Valium prior to exam. Next of kin still adamant on obtaining MRI prior to further discussion on code status. Review of Systems Review of Systems: ROS unobtainable: Yes unobtainable due to medical condition and unobtainable due to mental status Exam Narrative: GENERAL: Lethargic HEAD: [Normocephalic EYES: Anicteric sclera ENT: Dry mucous membrane NECK: Supple. CHEST: Clear to auscultation, no added sounds heard HEART: Regular rate and rhythm ABDOMEN: Soft, nondistended EXTREMITIES: No edema SKIN: Warm, dry, no rash. NEURO: Patient is very lethargic Const: General: cooperative, comfortable, no acute distress, well developed, Physically active, average body habitus and well nourished Nutritional Appearance: average body habitus and well nourished Orientation/consciousness: oriented to person and oriented to place Other: Patient is thin and only orientated to self. HENMT: Head: normal to inspection, No palpable skull fracture present, normocephalic, atraumatic and abrasion Ears: hearing grossly normal bilaterally Other: He is very hard of hearing Eyes: General: appearance normal, both eyes and all related structures Alignment and Position: alignment normal Periorbital: periorbital findings normal Eyelids: eyelids normal Neck: Neck: normal visual inspection, full ROM, no lymphadenopathy and trachea midline Chest: Chest palpation & inspection: normal inspection of the chest Resp: Effort & Inspection: normal respiratory effort Auscultation: clear to auscultation bilaterally Cardio: Palpation: normal PMI Rate: regular rate Rhythm: regular rhythm Heart sounds: S1 normal heart sound present and S2 normal heart sound present Peripheral pulses: Peripheral pulses 2+ throughout GI: Inspection: normal to inspection Auscultation: normal bowel sounds Rectal Exam: deferred : General: Yes no CVA tenderness Urinary Catheter: Urinary Catheter: patent and draining and urine clear Back/Spine/Pelvis: Back: no CVA tenderness Cervical Spine: cervical ROM normal Skin: General skin exam: normal color Lesions: no lesions Rashes: no rashes Trauma: no lacerations or abrasions Wounds: no wounds Hair: normal Nails: normal Other: Average balding male Neuro: General: oriented to person and oriented to place Cognition (Neuro): normal cognition Extrem: General: normal to inspection Right upper extremity: normal to inspection and shoulder/upper arm Left upper extremity: normal to inspection and shoulder/upper arm Right lower extremity: normal to inspection Left lower extremity: normal to inspection Psych: Affect: normal affect Attitude: cooperative Other: Patient was agitated in the emergency. Objective Data Vital Signs Vital Signs: Vital Signs - 24 hr 09/29/25 08:00 09/29/25 08:20 09/29/25 12:00 Temperature 98 F Pulse Rate 73 58 L Respiratory Rate 18 Blood Pressure 100/52 L Pulse Oximetry 98 Oxygen Delivery Room Air 09/29/25 14:00 09/29/25 16:00 09/29/25 20:00 Temperature 98.6 F Pulse Rate 66 75 75 Respiratory Rate 18 18 Blood Pressure 111/66 Pulse Oximetry 97 93 Oxygen Delivery Room Air 09/29/25 20:57 09/29/25 21:10 09/30/25 00:00 Temperature 98.6 F Pulse Rate 75 54 L Respiratory Rate 18 Blood Pressure 96/70 L Pulse Oximetry 97 93 Oxygen Delivery Room Air 09/30/25 04:00 09/30/25 05:05 Temperature Pulse Rate 74 56 L Respiratory Rate 20 Blood Pressure Pulse Oximetry Oxygen Delivery Intake/Output Intake/Output: Intake & Output 09/27/25 09/28/25 09/29/25 09/30/25 23:59 23:59 23:59 23:59 Intake Total 300 0 Output Total 50 900 Balance -50 -600 0 Meds/Results Medications: Active Medications Generic Name Dose Route Start Last Admin Trade Name Freq PRN Reason Stop Dose Admin Acetaminophen 650 mg 09/29/25 00:48 Acetaminophen 325 Mg Tablet PO Q4H PRN Mild Pain (1-3) or Fever Atorvastatin Calcium 20 mg 09/29/25 09:00 09/29/25 11:14 Atorvastatin 20 Mg Tablet PO Not Given On Hold: 09/29/25 12:11 DAILY REMI Bacitracin 1 applic 09/29/25 04:13 Bacitracin Ointment 15 Gm Tube TOPICAL Q12H PRN Wound Care Diphenhydramine HCl 25 mg 09/30/25 03:51 09/30/25 04:00 Diphenhydramine Hcl Inj 50 Mg/Ml Vial IV PUSH 25 mg Q4H PRN Administration anxiety Fluoxetine HCl 20 mg 09/29/25 09:00 09/29/25 11:15 Fluoxetine Hcl 20 Mg Capsule BY MOUTH Not Given On Hold: 09/29/25 12:11 DAILY REMI Levetiracetam 500 mg in 100 mls @ 400 mls/hr 09/29/25 09:00 09/29/25 21:02 Keppra Iv IVPB Infused Q12HR REMI Infusion Memantine 10 mg 09/29/25 09:00 09/29/25 11:15 Memantine 10 Mg Tablet PO Not Given On Hold: 09/29/25 12:11 Q12HR REMI Ondansetron HCl 4 mg 09/29/25 00:48 Ondansetron Inj 4 Mg/2 Ml Vial IV PUSH Q4H PRN Nausea Pantoprazole Sodium 40 mg 09/29/25 09:00 09/29/25 11:15 Pantoprazole 40 Mg Tablet PO Not Given On Hold: 09/29/25 12:11 Q12HR [facility] Radiology Results: ITS Impressions Head CT 09/29/25 07:21 IMPRESSION: 1. Probable subarachnoid hemorrhage right frontal lobe. Recommend short interval follow-up repeat scan. Labs Labs: Laboratory Results - last 24 hr 09/30/25 05:41 WBC 9.2 RBC 3.45 L Hgb 10.5 L Hct 32.3 L MCV 93.6 MCH 30.4 MCHC 32.5 RDW 12.0 Plt Count 207 MPV 11.0 H Immature Gran % (Auto) 0.3 Neut % (Auto) 67.5 Lymph % (Auto) 21.9 Elliott % (Auto) 8.6 H Eos % (Auto) 1.3 Baso % (Auto) 0.4 Lymph # (Auto) 2.00 Elliott # (Auto) 0.8 H Eos # (Auto) 0.1 Baso # (Auto) 0.0 Abs Immat Gran (auto) 0.03 Absolute Neuts (auto) 6.2 Absolute Nucleated RBC 0.000 Nucleated RBC % 0.0 Sodium 137 Potassium 3.5 Chloride 104 Carbon Dioxide 25 Anion Gap 8 BUN 19 Creatinine 1.00 Estim Creat Clear Calc Not Reportable Estimated GFR > 60 Glucose 69 Calcium 9.0 Magnesium 1.6 Quality VTE Prophylaxis VTE prophylaxis: mechanical ordered
[2025-09-30] MEDS: levETIRAcetam 500MG/NACL 100ML 500 MG/100 ML BAG 400 MG IVPB ×2 (08:19→21:11)
--- NOTE | 2025-09-30 14:35 | PC.NURSE ---
Received a call from pt's daughter [place], she was checking to see if pt had gotten MRI yet. Daughter was informed that pt may not be getting MRI today due to the delay down there. I stated that I have made multiple phone calls to MRI trying to get it to happen early, as well as the charge nurse and our manager gyn. She stated how can I be confident that he is getting the appropriate care if he has not gotten the MRI. I emphasized that we are doing all we can as nursing staff to care for him and to try and get the MRI done.
--- NOTE | 2025-09-30 16:05 | PCSTNOTE ---
Please refer to the Bedside Swallow Evaluation in the EMR. Please note, silent aspiration cannot be ruled out at bedside. The patient is a 89 year old male admitted with new diagnosis of possible subarachnoid hemorrhage. Orders received to complete a BSE. The patient is distractible and impulsive with sitter at bedside. The patient was positioned upright and presented the following consistencies: 5cc/tsp thin liquid, thin liquid small controlled cup amounts, puree, and solid texture cracker. Oral Stage: The patient had timely oral preparation and transit for pudding and thin liquid trials. When presented solid cracker consistency the patient had delayed oral preparation with excessive mastication, with residual remaining in the anterior sulcus following oral preparation. Pharyngeal Stage: The patient demonstrated a mildly delayed swallow initiation across consistencies. However, laryngeal elevation appeared strong, vocal quality was clear without noted coughing or choking. Did note concerns for patients impulsivity for managing large drink size due to level of alertness and confusion. Recommend: 1. Puree Diet / Level 4 2. Thin liquid / Level 0 3. Small drinks 4. upright with meals 5. One on one supervision 6. MANAGER MED SURG to follow for diet advancement to minced moist prior level if alertness improves.
--- NOTE | 2025-09-30 18:26 | WPDCNPSYCH ---
Assessment and Plan Assessment and plan (1) Dementia: Qualifiers: Dementia type: unspecified type Dementia severity: severe Dementia behavioral or psychological symptom: without behavioral, psychotic, or mood disturbance or anxiety Qualified Code(s): F03.C0 - Unspecified dementia, severe, without behavioral disturbance, psychotic disturbance, mood disturbance, and anxiety Code(s): F03.90 - Unspecified dementia, unspecified severity, without behavioral disturbance, psychotic disturbance, mood disturbance, and anxiety Status: Acute Assessment and Plan: Recommended psychiatric Medication Management ? Discontinue quetiapine 25 mg HS (home med) ? Discontinue diphenhydramine PRN to avoid worsening confusion and delirium. ? Continue memantine as prescribed. Sleep Support ? Trazodone 25 mg PO nightly PRN insomnia (may increase to 50 mg PRN if needed) ? Avoid benzodiazepines or other sedating anticholinergic agents. Agitation / Safety ? Non-pharmacologic measures first-line: sitter, frequent reorientation, minimize lines and restraints, day/night cueing. PRN antipsychotic only if patient demonstrates severe agitation posing immediate safety risk: o Quetiapine 12.5 mg PO every 8 hours PRN o Olanzapine 2.5 mg IM PRN if unable to take PO Monitoring / Safety ? Monitor for sedation, orthostasis, falls, QTc if antipsychotics used. ? Assess mental status daily; adjust interventions based on delirium resolution. discharge recommendations: Quetiapine 25 mg nightly was a home medication; however, scheduled continuation is not recommended at discharge. The patient?s inpatient behavioral symptoms were transient and occurred in the setting of acute medical illness and delirium. At the time of psychiatric evaluation, the patient was calm, non-agitated, and without evidence of psychosis, aggression, or sleep disturbance requiring antipsychotic treatment. Antipsychotics carry an FDA black box warning for increased mortality in elderly patients with dementia and are associated with sedation, orthostatic hypotension, and increased risk of falls. Given the absence of persistent target symptoms, presence of multiple delirium risk factors, and improvement without scheduled antipsychotic therapy, continuation of quetiapine would unnecessarily expose the patient to these risks. Non-pharmacologic strategies and safer alternatives for sleep were recommended. Antipsychotic therapy may be reconsidered only if severe, recurrent behavioral symptoms arise that pose safety risks and fail non-pharmacologic interventions. HPI Data of Consult Date/Time: 09/30/25 18:26 Requesting Physician: Crescencio Handy MD Primary Care Provider: Dimitri Hawley MD Consult Narrative Narrative: Alfredo Morrissey is a 89 year old male with a history of advanced dementia and baseline altered mental status (typically alert to self only), who presented to the emergency department on 09/28 from a memory care facility. He was reported to have episodes of visualized shaking prior to arrival; however, on examination today no tremors were observed, and there was no reported loss of consciousness. There is no known history of seizures or syncope. During today?s psychiatric evaluation, the patient was pleasantly confused and non-agitated. He mumbles intermittently but was able to answer some simple questions. When asked about his birthday, he stated it was ?sometime in [birth year],? which is accurate. He was unable to consistently provide identifying information. No agitation, aggression, or perceptual disturbances were noted during the assessment. The patient was reportedly agitated earlier during his emergency department stay and received diazepam (Valium) prior to MRI. Imaging included a CT scan showing a possible right frontal subarachnoid hemorrhage; MRI was obtained for further evaluation. He currently has a bedside sitter. He had been NPO until today and is now tolerating a pureed diet. Family contact was attempted but went to voicemail. Current medications include memantine 10 mg twice daily and diphenhydramine 25 mg IV every 4 hours as needed for anxiety. He was reportedly on quetiapine nightly at baseline, which is the reason for this psychiatric consult?to determine if continuation is indicated. Review of Systems Psychiatric: Psychiatric: Reports confusion PMFSH Past Medical History Medical History Left cataract maturing GERD (gastroesophageal reflux disease) Dementia Hyperlipidemia Hypertension Surgical History Surgical History Status post cataract extraction and insertion of intraocular lens of right eye History of left inguinal hernia repair History of umbilical hernia repair Family History Family History Mother Age older than 80 years Father MVA (motor vehicle accident) His father 2 months before patient was born. Social History Social History (Updated 09/29/25 @ 04:03 by Talya Zhong APRN) Social History: He is and retired. Code status: DNR Smoking packs per day: 1 Smoking cigarettes per day: 20.0 Years smoked: 15 Smoking pack-years: 15.00 Smoking status: Former smoker Tobacco type: cigarettes Second hand tobacco smoke exposure: No Alcohol intake: current Alcohol use details: He rarely drinks alcohol. 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 His undergraduate degree was in math. His master's degree was in [employer]. Gender identity (if verbalized by the patient): Male Sexual Orientation (if Verbalized by the Patient): Straight or Heterosexual Spiritual care concerns: No Meds Home Medications and Allergies Home Medications ?Medication ?Instructions ?Recorded ?Confirmed ?Type vitamins A,C,N-[id number] 4,296 1 cap PO BID 06/09/20 09/29/25 History mcg-226 mg-90 mg capsule (ICaps AREDS) memantine 10 mg tablet 10 mg PO BID #180 tabs 09/09/24 09/29/25 Rx atorvastatin 20 mg tablet 20 mg PO DAILY #90 tabs 10/13/24 09/29/25 Rx bacitracin zinc 500 unit/gram 1 applic topical BID PRN wound 12/15/24 09/29/25 Rx topical ointment care #28.4 grams fluoxetine 20 mg capsule See Rx Instructions .Route 03/25/25 09/29/25 Rx .COMPLEX #90 caps omeprazole 40 mg capsule,delayed 40 mg PO BID #180 caps 05/25/25 09/29/25 Rx release quetiapine 25 mg tablet 25 mg PO QHS 09/29/25 09/29/25 History Allergies Allergy/AdvReac Type Severity Reaction Status Date / Time ibuprofen Allergy Unknown Rash Verified 02/26/25 10:40 naproxen Allergy Unknown Rash Verified 02/26/25 10:40 Sulfa (Sulfonamide Allergy Unknown Unknown Verified 02/26/25 10:40 Antibiotics) ciprofloxacin AdvReac Unknown Rash Verified 02/26/25 10:40 Vital Signs Vital Signs - 24 hr 09/29/25 20:00 09/29/25 20:57 09/29/25 21:10 Temperature 98.6 F Pulse Rate 75 75 Respiratory Rate 18 18 Blood Pressure 96/70 L Pulse Oximetry 93 97 93 Oxygen Delivery Room Air Room Air 09/30/25 00:00 09/30/25 04:00 09/30/25 05:05 Temperature Pulse Rate 54 L 74 56 L Respiratory Rate 20 Blood Pressure Pulse Oximetry Oxygen Delivery 09/30/25 08:38 09/30/25 08:38 09/30/25 12:00 Temperature Pulse Rate 53 L 71 Respiratory Rate Blood Pressure Pulse Oximetry Oxygen Delivery Room Air 09/30/25 15:42 09/30/25 16:00 Temperature 97.7 F Pulse Rate 58 L 80 Respiratory Rate 16 Blood Pressure 136/65 Pulse Oximetry 96 Oxygen Delivery Exam Psych: Speech and movement: Other speech and movement exam findings present (Psych) (garbled) Affect: normal affect (happy) Attitude: cooperative Thought process: Other thought process findings present (tangential ) Thought content: Yes Normal thought content present Insight: Poor insight present (Psych) Judgement: Poor judgement present (Psych) Results Labs 09/30/25 05:41 09/30/25 05:41 Labs: Short CBC 09/30/25 Range/Units 05:41 WBC 9.2 (4.5-10.0) K/mm3 Hgb 10.5 L (14.0-18.0) g/dL Hct 32.3 L (42.0-52.0) % Plt Count 207 (150-375) k/mm3 BMP 09/30/25 05:41 Sodium 137 Potassium 3.5 Chloride 104 Carbon Dioxide 25 BUN 19 Creatinine 1.00 Glucose 69 Calcium 9.0
[2025-10-01] VITALS: PULSE 73
[2025-10-01 04:00] VITALS: PULSE 73
[2025-10-01 07:22] LABS: Hematocrit 35.1 % (42.0-52.0); Hemoglobin 11.6 g/dL (14.0-18.0); Immature Granulocyte Percent A 0.4 % (0-0.5); Lymphocytes Absolute Auto 2.16 K/mm3 (0.9-3.2); Mean Corpuscular HGB Conc 33.0 g/dl (32-36); Mean Corpuscular Hemoglobin 30.2 pg (26-34); Mean Corpuscular Volume 91.4 fl (80-100); Nucleated Red Blood Cells Absolute Auto 0.000 K/mm3 (0.0-0.012); Nucleated Red Blood Cells Perc 0.0 % (0.0-0.2); Platelet Count Result 237 k/mm3 (150-375); Red Blood Count 3.84 M/mm3 (4.6-6.20); White Blood Count 9.9 K/mm3 (4.5-10.0)
[2025-10-01 07:42] LABS: Anion Gap 9 mmol/L (4-12); Blood Urea Nitrogen 20 mg/dL (9-20); Calcium 9.1 mg/dL (8.4-10.2); Carbon Dioxide 25 mmol/L (22-30); Chloride 104 mmol/L (98-107); Estimated Glomerular Filt Rate > 60; Glucose 70 mg/dL (65-110); Potassium 3.7 mmol/L (3.4-5.0); Sodium 138 mmol/L (137-145)
[2025-10-01 08:00] VITALS: BP 131/65; PULSE 79; RESP 18; TEMP 36.6
[2025-10-01] MEDS: levETIRAcetam 500MG/NACL 100ML 500 MG/100 ML BAG 400 MG IVPB ×2 (08:54→21:13)
--- NOTE | 2025-10-01 09:09 | PCSTNOTE ---
10/01/25 Attempted to see am with follow-up PO intake, unable to arouse.
[2025-10-01 12:00] VITALS: PULSE 55
--- NOTE | 2025-10-01 15:09 | PM.IMPN2 ---
Assessment and Plan Assessment and Plan (1) Meningitis: Code(s): G03.9 - Meningitis, unspecified Status: Acute (2) Witnessed seizure-like activity: Code(s): R56.9 - Unspecified convulsions Status: Acute (3) Dementia: Qualifiers: Dementia behavioral or psychological symptom: without behavioral, psychotic, or mood disturbance or anxiety Dementia severity: severe Dementia type: unspecified type Qualified Code(s): F03.C0 - Unspecified dementia, severe, without behavioral disturbance, psychotic disturbance, mood disturbance, and anxiety Code(s): F03.90 - Unspecified dementia, unspecified severity, without behavioral disturbance, psychotic disturbance, mood disturbance, and anxiety Status: Acute (4) Seizure: Code(s): R56.9 - Unspecified convulsions Status: Acute Plan 89-year-old male with past medical history of severe dementia and is only orientated to himself baseline presented to the ER via ambulance from home/memory care facility after he experienced an episode of visualized tremor. Patient was very agitated in the ER. Patient is DNR. received Keppra Haldol in the ER. Neurology was consulted. CT head shows Probable subarachnoid hemorrhage right frontal lobe. I called the daughter over the phone who is the power of employment attorney. She is requesting further workup which includes MRI, but also at the same time does not want very aggressive measures which would include possible transfer to a higher level care with neurosurgery involvement. 1. Altered mental status/seizure: - CT head shows possible subarachnoid hemorrhage in right frontal lobe - October tele monitoring - Seizure precaution - Fall precaution - Continue with Keppra IV - Eeg - MRI brain - Neurology consult - Will hold all home medications due to mental status - Would prefer to have a speech eval once mental status is better - No antiplatelet, anticoagulant for now 2. Meningitis - see above - Brain MRI: Mild hyperenhancement of the meninges, and mildly thickened meninges adjacent to the left temporal lobe suspicious for meningitis or other inflammatory/infiltrative meningeal process, No acute ischemic event, mass or hemorrhage. - Empiric treatment started: Empiric treatment started: Ampicillin 2gm q6hr, Acyclovir 800mg q 12hr, Dex 10mg q6hr - discussed case with daughter at length, does not wish to proceed with lumbar puncture at this time, only once empiric treatment of meningitis - ID consulted for further recommendations 3. DVT prophylaxis: SCDs 4. Code status: DNR 5. Disposition: Pending improvement, poor prognosis overall Subjective Date/time seen: 10/01/25 15:09 Interval history: Patient examined in bed, remains lethargic with patient only oriented to self which is baseline. Brain MRI was obtained, showed evidence of meningitis or other inflammatory/infiltrative meningeal process. Discussed at length with daughter regarding further steps, she does not want to proceed with lumbar puncture at this time but would prefer empiric IV antibiotic treatment for meningitis. Will place patient on droplet precautions and initiate ampicillin and acyclovir. Infectious Disease consulted, appreciate further recommendations Review of Systems Review of Systems: ROS unobtainable: Yes unobtainable due to medical condition and unobtainable due to mental status Exam Narrative: GENERAL: Lethargic HEAD: [Normocephalic EYES: Anicteric sclera ENT: Dry mucous membrane NECK: Supple. CHEST: Clear to auscultation, no added sounds heard HEART: Regular rate and rhythm ABDOMEN: Soft, nondistended EXTREMITIES: No edema SKIN: Warm, dry, no rash. NEURO: Patient is very lethargic Const: General: cooperative, comfortable, no acute distress, well developed, Physically active, average body habitus and well nourished Nutritional Appearance: average body habitus and well nourished Orientation/consciousness: oriented to person and oriented to place Other: Patient is thin and only orientated to self. HENMT: Head: normal to inspection, No palpable skull fracture present, normocephalic, atraumatic and abrasion Ears: hearing grossly normal bilaterally Other: He is very hard of hearing Eyes: General: appearance normal, both eyes and all related structures Alignment and Position: alignment normal Periorbital: periorbital findings normal Eyelids: eyelids normal Neck: Neck: normal visual inspection, full ROM, no lymphadenopathy and trachea midline Chest: Chest palpation & inspection: normal inspection of the chest Resp: Effort & Inspection: normal respiratory effort Auscultation: clear to auscultation bilaterally Cardio: Palpation: normal PMI Rate: regular rate Rhythm: regular rhythm Heart sounds: S1 normal heart sound present and S2 normal heart sound present Peripheral pulses: Peripheral pulses 2+ throughout GI: Inspection: normal to inspection Auscultation: normal bowel sounds Rectal Exam: deferred : General: Yes no CVA tenderness Urinary Catheter: Urinary Catheter: patent and draining and urine clear Back/Spine/Pelvis: Back: no CVA tenderness Cervical Spine: cervical ROM normal Skin: General skin exam: normal color Lesions: no lesions Rashes: no rashes Trauma: no lacerations or abrasions Wounds: no wounds Hair: normal Nails: normal Other: Average balding male Neuro: General: oriented to person and oriented to place Cognition (Neuro): normal cognition Extrem: General: normal to inspection Right upper extremity: normal to inspection and shoulder/upper arm Left upper extremity: normal to inspection and shoulder/upper arm Right lower extremity: normal to inspection Left lower extremity: normal to inspection Psych: Affect: normal affect Attitude: cooperative Other: Patient was agitated in the emergency. Objective Data Vital Signs Vital Signs: Vital Signs - 24 hr 09/30/25 15:42 09/30/25 16:00 09/30/25 20:00 Temperature 97.7 F 98.8 F Pulse Rate 58 L 80 65 Respiratory Rate 16 17 Blood Pressure 136/65 120/76 Pulse Oximetry 96 98 Oxygen Delivery 09/30/25 20:00 09/30/25 20:00 10/01/25 00:00 Temperature Pulse Rate 65 68 73 Respiratory Rate 17 Blood Pressure Pulse Oximetry 98 Oxygen Delivery Room Air 10/01/25 04:00 10/01/25 08:00 10/01/25 08:00 Temperature 97.8 F Pulse Rate 73 Respiratory Rate 18 Blood Pressure 131/65 Pulse Oximetry Oxygen Delivery Room Air 10/01/25 08:00 10/01/25 12:00 Temperature Pulse Rate 79 55 L Respiratory Rate Blood Pressure Pulse Oximetry Oxygen Delivery Intake/Output Intake/Output: Intake & Output 09/28/25 09/29/25 09/30/25 10/01/25 23:59 23:59 23:59 23:59 Intake Total 300 300 100 Output Total 50 900 800 800 Balance -50 -600 -500 -700 Meds/Results Medications: Active Medications Generic Name Dose Route Start Last Admin Trade Name Freq PRN Reason Stop Dose Admin Acetaminophen 650 mg 09/29/25 00:48 Acetaminophen 325 Mg Tablet PO Q4H PRN Mild Pain (1-3) or Fever Atorvastatin Calcium 20 mg 09/29/25 09:00 09/29/25 11:14 Atorvastatin 20 Mg Tablet PO Not Given On Hold: 09/29/25 12:11 DAILY [facility]I Bacitracin 1 applic 09/29/25 04:13 Bacitracin Ointment 15 Gm Tube TOPICAL Q12H PRN Wound Care Dexamethasone Sodium Phosphate 10 mg 10/01/25 14:55 Dexamethasone Sod Phos Inj 10 Mg/Ml 1 Ml Vial IV PUSH 10/05/25 02:56 Q6H REMI Diazepam 5 mg 09/30/25 16:42 Diazepam Inj (*Crx) 10 Mg/2 Ml Syringe IV PUSH ONCE PRN MRI Diphenhydramine HCl 25 mg 09/30/25 03:51 09/30/25 04:00 Diphenhydramine Hcl Inj 50 Mg/Ml Vial IV PUSH 25 mg Q4H PRN Administration anxiety Fluoxetine HCl 20 mg 09/29/25 09:00 09/29/25 11:15 Fluoxetine Hcl 20 Mg Capsule BY MOUTH Not Given On Hold: 09/29/25 12:11 DAILY [facility] Levetiracetam 500 mg in 100 mls @ 400 mls/hr 09/29/25 09:00 10/01/25 09:09 Keppra Iv IVPB Infused Q12HR [facility] Infusion Acyclovir Sodium 800 mg/ 266 mls @ 250.091 mls/hr 10/01/25 16:00 Dextrose IVPB Q12H [facility] Ampicillin Sodium 2 gm/ Sodium 100 mls @ 200 mls/hr 10/01/25 15:00 Chloride IVPB Q6H [facility] Memantine 10 mg 09/29/25 09:00 09/29/25 11:15 Memantine 10 Mg Tablet PO Not Given On Hold: 09/29/25 12:11 Q12HR [facility] Ondansetron HCl 4 mg 09/29/25 00:48 Ondansetron Inj 4 Mg/2 Ml Vial IV PUSH Q4H PRN Nausea Pantoprazole Sodium 40 mg 09/29/25 09:00 09/29/25 11:15 Pantoprazole 40 Mg Tablet PO Not Given On Hold: 09/29/25 12:11 Q12HR [facility] Radiology Results: ITS Impressions Head CT 09/29/25 07:21 IMPRESSION: 1. Probable subarachnoid hemorrhage right frontal lobe. Recommend short interval follow-up repeat scan. Brain MRI 10/01/25 12:25 IMPRESSION: 1. Mild hyperenhancement of the meninges, and mildly thickened meninges adjacent to the left temporal lobe suspicious for meningitis or other inflammatory/infiltrative meningeal process. 2. No acute ischemic event, mass or hemorrhage. 3. Mild to moderately severe paranasal sinus disease. Labs Labs: Laboratory Results - last 24 hr 10/01/25 06:58 WBC 9.9 RBC 3.84 L Hgb 11.6 L Hct 35.1 L MCV 91.4 MCH 30.2 MCHC 33.0 RDW 11.7 Plt Count 237 MPV 10.4 Immature Gran % (Auto) 0.4 Neut % (Auto) 67.7 Lymph % (Auto) 21.7 [place]calfe % (Auto) 7.2 Eos % (Auto) 2.5 Baso % (Auto) 0.5 Lymph # (Auto) 2.16 [place] # (Auto) 0.7 H Eos # (Auto) 0.3 Baso # (Auto) 0.1 Abs Immat Gran (auto) 0.04 H Absolute Neuts (auto) 6.7 Absolute Nucleated RBC 0.000 Nucleated RBC % 0.0 Sodium 138 Potassium 3.7 Chloride 104 Carbon Dioxide 25 Anion Gap 9 BUN 20 Creatinine 0.93 Estim Creat Clear Calc Not Reportable Estimated GFR > 60 Glucose 70 Calcium 9.1 Quality VTE Prophylaxis VTE prophylaxis: mechanical ordered
[2025-10-01 16:00] VITALS: PULSE 63
[2025-10-01] MEDS: AMPICILLIN SODIUM 2 GM in SODIUM CHLORIDE 0.9% IV 100 ML 200 ML IVPB ×2 (16:30→20:19)
[2025-10-01] MEDS: dexAMETHasone SOD PHOS INJ 10 MG/ML 1 ML VIAL IV PUSH ×2 (16:30→20:21)
[2025-10-01] MEDS: ACYCLOVIR SODIUM IVPB 800 MG in DEXTROSE 5% IN WATER 250 ML 250.09 MG IVPB (17:17)
[2025-10-01 20:00] VITALS: BP 115/66; PULSE 68; PULSE 95; TEMP 36.4; O2SAT 96
[2025-10-02] VITALS: PULSE 59
[2025-10-02] MEDS: AMPICILLIN SODIUM 2 GM in SODIUM CHLORIDE 0.9% IV 100 ML 200 ML IVPB ×4 (02:43→21:43)
[2025-10-02] MEDS: dexAMETHasone SOD PHOS INJ 10 MG/ML 1 ML VIAL IV PUSH ×4 (02:47→21:43)
[2025-10-02] MEDS: ACYCLOVIR SODIUM IVPB 800 MG in DEXTROSE 5% IN WATER 250 ML 250.09 MG IVPB (03:20)
[2025-10-02 04:00] VITALS: PULSE 65
[2025-10-02 08:19] LABS: Hematocrit 38.3 % (42.0-52.0); Hemoglobin 12.7 g/dL (14.0-18.0); Immature Granulocyte Percent A 0.3 % (0-0.5); Lymphocytes Absolute Auto 1.31 K/mm3 (0.9-3.2); Mean Corpuscular HGB Conc 33.2 g/dl (32-36); Mean Corpuscular Hemoglobin 30.0 pg (26-34); Mean Corpuscular Volume 90.3 fl (80-100); Nucleated Red Blood Cells Absolute Auto 0.000 K/mm3 (0.0-0.012); Nucleated Red Blood Cells Perc 0.0 % (0.0-0.2); Platelet Count Result 286 k/mm3 (150-375); Red Blood Count 4.24 M/mm3 (4.6-6.20); White Blood Count 9.3 K/mm3 (4.5-10.0)
[2025-10-02 08:44] LABS: Alanine Aminotransferase 14 U/L (6-50); Albumin Level 4.0 g/dL (3.5-5.1); Alkaline Phosphatase 121 U/L (38-126); Anion Gap 12 mmol/L (4-12); Aspartate Amino Transferase 31 U/L (17-59); Bilirubin,Total 0.7 mg/dL (0.2-1.3); Blood Urea Nitrogen 29 mg/dL (9-20); Calcium 9.4 mg/dL (8.4-10.2); Carbon Dioxide 25 mmol/L (22-30); Chloride 102 mmol/L (98-107); Estimated Glomerular Filt Rate > 60; Glucose 167 mg/dL (65-110); Potassium 4.2 mmol/L (3.4-5.0); Sodium 139 mmol/L (137-145); Total Protein 8.0 g/dL (6.3-8.2)
--- NOTE | 2025-10-02 08:44 | P.PNIM_ITS ---
Assessment and Plan Assessment and Plan (1) Meningitis: Code(s): G03.9 - Meningitis, unspecified Status: Acute (2) Witnessed seizure-like activity: Code(s): R56.9 - Unspecified convulsions Status: Acute (3) Dementia: Qualifiers: Dementia behavioral or psychological symptom: without behavioral, psychotic, or mood disturbance or anxiety Dementia severity: severe Dementia type: unspecified type Qualified Code(s): F03.C0 - Unspecified dementia, severe, without behavioral disturbance, psychotic disturbance, mood disturbance, and anxiety Code(s): F03.90 - Unspecified dementia, unspecified severity, without behavioral disturbance, psychotic disturbance, mood disturbance, and anxiety Status: Acute (4) Seizure: Code(s): R56.9 - Unspecified convulsions Status: Acute Plan 89-year-old male with past medical history of severe dementia and is only orientated to himself baseline presented to the ER via ambulance from home/memory care facility after he experienced an episode of visualized tremor. Patient was very agitated in the ER. Patient is DNR. received Keppra, Haldol in the ER. Neurology was consulted. CT head shows Probable subarachnoid hemorrhage right frontal lobe. I called the daughter over the phone who is the power of immigration attorney. She is requesting further workup which includes MRI, but also at the same time does not want very aggressive measures which would include possible transfer to a higher level care with neurosurgery involvement. 1. Altered mental status/seizure: - CT head shows possible subarachnoid hemorrhage in right frontal lobe - Telemetry - Seizure/fall precautions - Continue with Keppra IV - EEG: Abnormal record due to the presence of bihemispheric slow activity with intermittent periods of decrement in the background rhythm ,these abnormalities are suggestive of organic or metabolic encephalopathy or neuro degenerative process in addition to the possibility of postictal state,clinical correlation recommended. There is no evidence of active paroxysmal activity. - MRI brain: Mildly thickened meninges suspicious for meningitis or other inflammatory/infiltrative meningeal process, No acute ischemic event, mass or hemorrhage. - Neurology consult pending - Continue at home medications - Would prefer to have a speech eval once mental status is better - No antiplatelet, anticoagulant for now 2. Meningitis - see above - Brain MRI: Mild hyperenhancement of the meninges, and mildly thickened meninges adjacent to the left temporal lobe suspicious for meningitis or other inflammatory/infiltrative meningeal process, No acute ischemic event, mass or hemorrhage. - Empiric treatment started: Empiric treatment started: Ampicillin 2gm q6hr, ceftriaxone 2 g q.12 hours, vancomycin Q 20 hours, Acyclovir 800mg q 12hr, Dex 10mg q6hr - discussed case with daughter at length, does not wish to proceed with lumbar puncture at this time, only once empiric treatment of meningitis - ID consulted for further recommendations 3. DVT prophylaxis: SCDs 4. Code status: DNR 5. Disposition: Pending improvement, poor prognosis overall Subjective Date/time seen: 10/02/25 08:44 Interval history: 89-year-old male patient who has severe dementia and is only orientated to himself baseline. The patient was brought into the emergency room via ambulance from home the [facility] care facility after he experienced an episode of visualized tremors. 10/02/2025 Patient examined in bed. Moved to separate room for isolation precautions. Appears much more alert today, however remains at baseline A&O x1. Will need droplet precaution for 24 hours after initiation of antibiotics. Ampicillin, acyclovir, vancomycin and ceftriaxone initiated for meningitis. Discussed at length with daughter who did not want lumbar puncture at this time. We will continue to treat empirically. Blood work remained stable, no fever or leukocytosis. ID and neurology consult still pending. Review of Systems Review of Systems: ROS unobtainable: Yes unobtainable due to medical condition and unobtainable due to mental status Exam Narrative: GENERAL: Lethargic HEAD: [Normocephalic EYES: Anicteric sclera ENT: Dry mucous membrane NECK: Supple. CHEST: Clear to auscultation, no added sounds heard HEART: Regular rate and rhythm ABDOMEN: Soft, nondistended EXTREMITIES: No edema SKIN: Warm, dry, no rash. NEURO: Patient is very lethargic Const: General: cooperative, comfortable, no acute distress, well developed, Physically active, average body habitus and well nourished Nutritional Appearance: average body habitus and well nourished Orientation/consciousness: oriented to person and oriented to place Other: Patient is thin and only orientated to self. HENMT: Head: normal to inspection, No palpable skull fracture present, normocephalic, atraumatic and abrasion Ears: hearing grossly normal bilaterally Other: He is very hard of hearing Eyes: General: appearance normal, both eyes and all related structures Alignment and Position: alignment normal Periorbital: periorbital findings n ormal Eyelids: eyelids normal Neck: Neck: normal visual inspection, full ROM, no lymphadenopathy and trachea midline Chest: Chest palpation & inspection: normal inspection of the chest Resp: Effort & Inspection: normal respiratory effort Auscultation: clear to auscultation bilaterally Cardio: Palpation: normal PMI Rate: regular rate Rhythm: regular rhythm Heart sounds: S1 normal heart sound present and S2 normal heart sound present Peripheral pulses: Peripheral pulses 2+ throughout GI: Inspection: normal to inspection Auscultation: normal bowel sounds Rectal Exam: deferred : General: Yes no CVA tenderness Urinary Catheter: Urinary Catheter: patent and draining and urine clear Back/Spine/Pelvis: Back: no CVA tenderness Cervical Spine: cervical ROM normal Skin: General skin exam: normal color Lesions: no lesions Rashes: no rashes Trauma: no lacerations or abrasions Wounds: no wounds Hair: normal Nails: normal Other: Average balding male Neuro: General: oriented to person and oriented to place Cognition (Neuro): normal cognition Extrem: General: normal to inspection Right upper extremity: normal to inspection and shoulder/upper arm Left upper extremity: normal to inspection and shoulder/upper arm Right lower extremity: normal to inspection Left lower extremity: normal to inspection Psych: Affect: normal affect Attitude: cooperative Other: Patient was agitated in the emergency. Objective Data Vital Signs Vital Signs: Vital Signs - 24 hr 10/01/25 12:00 10/01/25 16:00 10/01/25 20:00 Temperature 97.5 F L Pulse Rate 55 L 63 95 Blood Pressure 115/66 Pulse Oximetry 96 Oxygen Delivery 10/01/25 20:00 10/01/25 20:00 10/02/25 00:00 Temperature Pulse Rate 68 59 L Blood Pressure Pulse Oximetry Oxygen Delivery Room Air 10/02/25 04:00 Temperature Pulse Rate 65 Blood Pressure Pulse Oximetry Oxygen Delivery Intake/Output Intake/Output: Intake & Output 09/29/25 09/30/25 10/01/25 10/02/25 23:59 23:59 23:59 23:59 Intake Total 300 300 666 366 Output Total 900 800 800 275 Balance -600 -500 -134 91 Meds/Results Medications: Active Medications Generic Name Dose Route Start Last Admin Trade Name Freq PRN Reason Stop Dose Admin Acetaminophen 650 mg 09/29/25 00:48 Acetaminophen 325 Mg Tablet PO Q4H PRN Mild Pain (1-3) or Fever Atorvastatin Calcium 20 mg 09/29/25 09:00 09/29/25 11:14 Atorvastatin 20 Mg Tablet PO Not Given On Hold: 09/29/25 12:11 DAILY REMI Bacitracin 1 applic 09/29/25 04:13 Bacitracin Ointment 15 Gm Tube TOPICAL Q12H PRN Wound Care Dexamethasone Sodium Phosphate 10 mg 10/01/25 14:55 10/02/25 02:47 Dexamethasone Sod Phos Inj 10 Mg/Ml 1 Ml Vial IV PUSH 10/05/25 02:56 10 mg Q6H REMI Administration Diazepam 5 mg 09/30/25 16:42 Diazepam Inj (*Crx) 10 Mg/2 Ml Syringe IV PUSH ONCE PRN MRI Diphenhydramine HCl 25 mg 09/30/25 03:51 09/30/25 04:00 Diphenhydramine Hcl Inj 50 Mg/Ml Vial IV PUSH 25 mg Q4H PRN Administration anxiety Fluoxetine HCl 20 mg 09/29/25 09:00 09/29/25 11:15 Fluoxetine Hcl 20 Mg Capsule BY MOUTH Not Given On Hold: 09/29/25 12:11 DAILY REMI Levetiracetam 500 mg in 100 mls @ 400 mls/hr 09/29/25 09:00 10/01/25 21:28 Keppra Iv IVPB Infused Q12HR REMI Infusion Acyclovir Sodium 800 mg/ 266 mls @ 250.091 mls/hr 10/01/25 16:00 10/02/25 04:24 Dextrose IVPB Infused Q12H REMI Infusion Ampicillin Sodium 2 gm/ Sodium 100 mls @ 200 mls/hr 10/01/25 15:00 10/02/25 03:13 Chloride IVPB Infused Q6H REMI Infusion Memantine 10 mg 09/29/25 09:00 09/29/25 11:15 Memantine 10 Mg Tablet PO Not Given On Hold: 09/29/25 12:11 Q12HR REMI Ondansetron HCl 4 mg 09/29/25 00:48 Ondansetron Inj 4 Mg/2 Ml Vial IV PUSH Q4H PRN Nausea Pantoprazole Sodium 40 mg 09/29/25 09:00 09/29/25 11:15 Pantoprazole 40 Mg Tablet PO Not Given On Hold: 09/29/25 12:11 Q12HR [facility] Radiology Results: ITS Impressions Head CT 09/29/25 07:21 IMPRESSION: 1. Probable subarachnoid hemorrhage right frontal lobe. Recommend short interval follow-up repeat scan. Brain MRI 10/01/25 12:25 IMPRESSION: 1. Mild hyperenhancement of the meninges, and mildly thickened meninges adjacent to the left temporal lobe suspicious for meningitis or other inflammatory/infiltrative meningeal process. 2. No acute ischemic event, mass or hemorrhage. 3. Mild to moderately severe paranasal sinus disease. Labs Labs: Laboratory Results - last 24 hr 10/02/25 08:10 WBC 9.3 RBC 4.24 L Hgb 12.7 L Hct 38.3 L MCV 90.3 MCH 30.0 MCHC 33.2 RDW 11.7 Plt Count 286 MPV 10.1 Immature Gran % (Auto) 0.3 Neut % (Auto) 84.5 H Lymph % (Auto) 14.[address] [place] % (Auto) 1.0 L Eos % (Auto) 0.0 Baso % (Auto) 0.1 L Lymph # (Auto) 1.31 [place] # (Auto) 0.1 Eos # (Auto) 0.0 Baso # (Auto) 0.0 Abs Immat Gran (auto) 0.03 Absolute Neuts (auto) 7.9 H Absolute Nucleated RBC 0.000 Nucleated RBC % 0.0 Quality VTE Prophylaxis VTE prophylaxis: mechanical ordered
[2025-10-02] MEDS: levETIRAcetam 500MG/NACL 100ML 500 MG/100 ML BAG 400 MG IVPB ×2 (09:29→21:30)
--- NOTE | 2025-10-02 09:48 | PCSTNOTE ---
10/02 Patient remains poorly responsive.
[2025-10-02] MEDS: cefTRIAXone 2 GM in SODIUM CHLORIDE 0.9% IV 100 ML 200 ML IVPB ×2 (15:02→21:00)
--- NOTE | 2025-10-02 15:09 | P.CONINF_ITS ---
Assessment and Plan Assessment and plan (1) Meningitis: Code(s): G03.9 - Meningitis, unspecified Status: Acute Assessment and Plan: #Possible meningitis. Possible seizure with patient with underlying dementia. Question of subarachnoid bleed process in addition to the possibility of meningeal enhancement around the temporal lobes. HSV would be a consideration although he has responded very quickly to antiviral medication. VZV could also be a another consideration. Bacterial would seem less likely although we do not have a lumbar puncture, per patient's family's wishes, to decipher possible infectious etiologies. #Underlying dementia. Plan: At this point, would continue IV acyclovir. Monitor creatinine closely. Would continue ampicillin ceftriaxone and vancomycin and follow blood cultures. Blood cultures negative, we may be able to discontinue the ampicillin based on pretest probability and again absence of lumbar puncture. Could consider EEG for any further evaluation for temporal lobe process. Would be difficult to advocate for oral stepdown to valacyclovir at this point without lumbar puncture but can discuss risks and benefits and goals of care with family, especially with patient's fairly immediate improvement. Could consider serial MRI to evaluate the temporal lobe process to see if there is an immediate improvement after any potential trauma. Neurology following. I would recommend following the patient inpatient for another 48 to 72 hours on IV acyclovir while we monitor his creatinine. Patient was interviewed and examined with the aid of a HIPAA protected telemedicine interface. With patient's/family's consent. Patient was examined while he was admitted to [facility] in [facility] and I was in my office in [facility] Data of Consult Date/Time: 10/02/25 15:09 Requesting Physician: Crescencio Handy MD Primary Care Provider: Dimitri Hawley MD Consult Narrative Reason for consult: possible encephalitis Narrative: Alfredo Morrissey is a 89 year old male With a reported history of dementia presenting with acute mental status change with possible sz. pt was not acting himself and there was concern for possibe generalized sz actvitiy. . Coming in through the ED. Initial imaging was concerning for possibly a subarachnoid hemorrhage in the frontal area.. Findings of leptomeningeal enhancement especially in the temporal lobes. There was concern for meningoencephalitis. He was started on acyclovir, ampicillin, ceftriaxone and vancomycin. LP was deferred by family in the ED. There was discussion of goals of care and comfort. Today, he is much more alert and was described in the ED. No fevers chills or night sweats. No vesicular rash noted on telemedicine visit. No family at bedside the call was made to discuss case. Neuro following [facility] Past Medical History Medical History Left cataract maturing GERD (gastroesophageal reflux disease) Dementia Hyperlipidemia Hypertension Surgical History Surgical History Status post cataract extraction and insertion of intraocular lens of right eye History of left inguinal hernia repair History of umbilical hernia repair Family History Family History Mother Age older than 80 years Father MVA (motor vehicle accident) His father 2 months before patient was born. Social History Social History (Updated 09/29/25 @ 04:03 by Talya Zhong APRN) Social History: He is and retired. Code status: DNR Smoking packs per day: 1 Smoking cigarettes per day: 20.0 Years smoked: 15 Smoking pack-years: 15.00 Smoking status: Former smoker Tobacco type: cigarettes Second hand tobacco smoke exposure: No Alcohol intake: current Alcohol use details: He rarely drinks alcohol. 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 His undergraduate degree was in math. His master's degree was in German. Gender identity (if verbalized by the patient): Male Sexual Orientation (if Verbalized by the Patient): Straight or Heterosexual Spiritual care concerns: No Meds Home Medications and Allergies Home Medications ?Medication ?Instructions ?Recorded ?Confirmed ?Type vitamins A,C,[id number] 4,296 1 cap PO BID 06/09/20 09/29/25 History mcg-226 mg-90 mg capsule (ICaps AREDS) memantine 10 mg tablet 10 mg PO BID #180 tabs 09/0909/29/25 Rx atorvastatin 20 mg tablet 20 mg PO DAILY #90 tabs 09/1609/29/25 Rx bacitracin zinc 500 unit/gram 1 applic topical BID PRN wound 12/15/24 09/29/25 Rx topical ointment care #28.4 grams fluoxetine 20 mg capsule See Rx Instructions .Route 0 03/25/25 09/29/25 Rx .COMPLEX #90 caps omeprazole 40 mg capsule,delayed 40 mg PO BID #180 cap s 05/25/25 09/29/25 Rx release quetiapine 25 mg tablet 25 mg PO QHS 09/29/25 History Allergies Allergy/AdvReac Type Severity Reaction Status Date / Time ibuprofen Allergy Unknown Rash Verified 02/26/25 10:40 naproxen Allergy Unknown Rash Verified 02/26/25 10:40 Sulfa (Sulfonamide Allergy Unknown Unknown Verified 02/26/25 10:40 Antibiotics) ciprofloxacin AdvReac Unknown Rash Verified 02/26/25 10:40 Vital Signs Vital Signs - 24 hr 10/01/25 16:00 10/01/25 20:00 10/01/25 20:00 Temperature 36.4 C L Pulse Rate 63 95 Blood Pressure 115/66 Pulse Oximetry 96 Oxygen Delivery Room Air 10/01/25 20:00 10/02/25 00:00 10/02/25 04:00 Temperature Pulse Rate 68 59 L 65 Blood Pressure Pulse Oximetry Oxygen Delivery 10/02/25 08:00 Temperature Pulse Rate Blood Pressure Pulse Oximetry Oxygen Delivery Room Air Exam 2 Const: Other: Via telemedicine. Patient is in soft restraints but he is alert. Not combative. Is able to acknowledge the beatrice garvey as well as briefly me via my telemedicine interface. No vesicular rashes noted by beatrice garvey or by me, with within the capacity of the telemedicine interface. No active seizure noted. No tremor. Results Labs 10/02/25 08:10 10/02/25 08:10 Labs: Short CBC 10/02/25 Range/Units 08:10 WBC 9.3 (4.5-10.0) K/mm3 Hgb 12.7 L (14.0-18.0) g/dL Hct 38.3 L (42.0-52.0) % Plt Count 286 (150-375) k/mm3 [facility] 10/02/25 08:10 Sodium 139 Potassium 4.2 Chloride 102 Carbon Dioxide 25 BUN 29 H Creatinine 1.08 Glucose 167 H Calcium 9.4 Liver Function 10/02/25 Range/Units 08:10 Total Bilirubin 0.7 (0.2-1.3) mg/dL AST 31 (17-59) U/L ALT 14 (6-50) U/L Alkaline Phosphatase 121 (38-126) U/L Albumin 4.0 (3.5-5.1) g/dL
[2025-10-02 16:00] VITALS: PULSE 83
[2025-10-02] MEDS: VANCOMYCIN 2,000 MG/NS 500 ML 2,000 MG/500 ML BAG 250 MG IVPB (16:05)
[2025-10-02] MEDS: ACYCLOVIR SODIUM IVPB 800 MG in DEXTROSE 5% IN WATER 250 ML 250 MG IVPB (18:50)
[2025-10-02 20:00] VITALS: BP 120/72; PULSE 101; PULSE 87; RESP 18; TEMP 37.2; O2SAT 90
[2025-10-03] VITALS: PULSE 63
[2025-10-03] MEDS: dexAMETHasone SOD PHOS INJ 10 MG/ML 1 ML VIAL IV PUSH ×4 (02:55→21:17)
[2025-10-03] MEDS: AMPICILLIN SODIUM 2 GM in SODIUM CHLORIDE 0.9% IV 100 ML 200 ML IVPB ×4 (03:15→22:20)
[2025-10-03] MEDS: ACYCLOVIR SODIUM IVPB 800 MG in DEXTROSE 5% IN WATER 250 ML 250 MG IVPB ×2 (04:00→17:20)
[2025-10-03 05:44] LABS: Hematocrit 34.4 % (42.0-52.0); Hemoglobin 11.4 g/dL (14.0-18.0); Immature Granulocyte Percent A 0.8 % (0-0.5); Lymphocytes Absolute Auto 1.30 K/mm3 (0.9-3.2); Mean Corpuscular HGB Conc 33.1 g/dl (32-36); Mean Corpuscular Hemoglobin 30.0 pg (26-34); Mean Corpuscular Volume 90.5 fl (80-100); Nucleated Red Blood Cells Absolute Auto 0.000 K/mm3 (0.0-0.012); Nucleated Red Blood Cells Perc 0.0 % (0.0-0.2); Platelet Count Result 294 k/mm3 (150-375); Red Blood Count 3.80 M/mm3 (4.6-6.20); White Blood Count 19.2 K/mm3 (4.5-10.0)
[2025-10-03 06:14] LABS: Alanine Aminotransferase 16 U/L (6-50); Albumin Level 3.8 g/dL (3.5-5.1); Alkaline Phosphatase 109 U/L (38-126); Anion Gap 6 mmol/L (4-12); Aspartate Amino Transferase 34 U/L (17-59); Bilirubin,Total 0.5 mg/dL (0.2-1.3); Blood Urea Nitrogen 33 mg/dL (9-20); Calcium 9.1 mg/dL (8.4-10.2); Carbon Dioxide 27 mmol/L (22-30); Chloride 107 mmol/L (98-107); Estimated Glomerular Filt Rate > 60; Glucose 146 mg/dL (65-110); Potassium 4.1 mmol/L (3.4-5.0); Sodium 140 mmol/L (137-145); Total Protein 7.3 g/dL (6.3-8.2)
[2025-10-03 08:00] VITALS: BP 113/54; PULSE 115; PULSE 62; RESP 20; TEMP 36.2; O2SAT 97
--- NOTE | 2025-10-03 08:08 | PM.IMPN2 ---
Assessment and Plan Assessment and Plan (1) Meningitis: Code(s): G03.9 - Meningitis, unspecified Status: Acute (2) Witnessed seizure-like activity: Code(s): R56.9 - Unspecified convulsions Status: Acute (3) Dementia: Qualifiers: Dementia behavioral or psychological symptom: without behavioral, psychotic, or mood disturbance or anxiety Dementia severity: severe Dementia type: unspecified type Qualified Code(s): F03.C0 - Unspecified dementia, severe, without behavioral disturbance, psychotic disturbance, mood disturbance, and anxiety Code(s): F03.90 - Unspecified dementia, unspecified severity, without behavioral disturbance, psychotic disturbance, mood disturbance, and anxiety Status: Acute (4) Seizure: Code(s): R56.9 - Unspecified convulsions Status: Acute Plan 89-year-old male with past medical history of severe dementia and is only orientated to himself baseline presented to the ER via ambulance from home/memory care facility after he experienced an episode of visualized tremor. Patient was very agitated in the ER. Patient is DNR. received Keppra, Haldol in the ER. Neurology was consulted. CT head shows Probable subarachnoid hemorrhage right frontal lobe. I called the daughter over the phone who is the power of commercial real estate attorney. She is requesting further workup which includes MRI, but also at the same time does not want very aggressive measures which would include possible transfer to a higher level care with neurosurgery involvement. 1. Altered mental status/seizure: - CT head shows possible subarachnoid hemorrhage in right frontal lobe - Telemetry - Seizure/fall precautions - Continue with Keppra IV - EEG: Abnormal record due to the presence of bihemispheric slow activity with intermittent periods of decrement in the background rhythm ,these abnormalities are suggestive of organic or metabolic encephalopathy or neuro degenerative process in addition to the possibility of postictal state,clinical correlation recommended. There is no evidence of active paroxysmal activity. - MRI brain: Mildly thickened meninges suspicious for meningitis or other inflammatory/infiltrative meningeal process, No acute ischemic event, mass or hemorrhage. - Neurology consult pending - Continue at home medications - Would prefer to have a speech eval once mental status is better - No antiplatelet, anticoagulant for now 2. Meningitis - see above - Brain MRI: Mild hyperenhancement of the meninges, and mildly thickened meninges adjacent to the left temporal lobe suspicious for meningitis or other inflammatory/infiltrative meningeal process, No acute ischemic event, mass or hemorrhage. - Empiric treatment started: Empiric treatment started: Ampicillin 2gm q6hr, ceftriaxone 2 g q.12 hours, vancomycin Q 20 hours, Acyclovir 800mg q 12hr, Dex 10mg q6hr - discussed case with daughter at length, does not wish to proceed with lumbar puncture at this time, only once empiric treatment of meningitis - ID consulted for further recommendations - Monitor Cr closely - Could consider serial MRI to evaluate temporal lobe process 3. DVT prophylaxis: SCDs 4. Code status: DNR 5. Disposition: Pending improvement, poor prognosis overall Subjective Date/time seen: 10/03/25 08:08 Interval history: 89-year-old male patient who has severe dementia and is only orientated to himself baseline. The patient was brought into the emergency room via ambulance from home the [facility] care facility after he experienced an episode of visualized tremors. 10/03/2025 Patient examined in bed. Moved to separate room for isolation precautions. Appears much more alert today, however remains at baseline A&O x1. Remains afebrile, WBC increased significantly but recently started on glucocorticoids for meningititis protocol. Speech therapy recommending advancement to minced/moist diet, PT/OT able to get patient up and moving so overall seeing nice progression. He is able to answer questions but reamins oriented to self only. Plan to continue IV abx. Review of Systems Review of Systems: ROS unobtainable: Yes unobtainable due to medical condition and unobtainable due to mental status Exam Narrative: GENERAL: Lethargic HEAD: [Normocephalic EYES: Anicteric sclera ENT: Dry mucous membrane NECK: Supple. CHEST: Clear to auscultation, no added sounds heard HEART: Regular rate and rhythm ABDOMEN: Soft, nondistended EXTREMITIES: No edema SKIN: Warm, dry, no rash. NEURO: Patient is very lethargic Const: General: cooperative, comfortable, no acute distress, well developed, Physically active, average body habitus and well nourished Nutritional Appearance: average body habitus and well nourished Orientation/consciousness: oriented to person and oriented to place Other: Patient is thin and only orientated to self. HENMT: Head: normal to inspection, No palpable skull fracture present, normocephalic, atraumatic and abrasion Ears: hearing grossly normal bilaterally Other: He is very hard of hearing Eyes: General: appearance normal, both eyes and all related structures Alignment and Position: alignment normal Periorbital: periorbital findings normal Eyelids: eyelids normal Neck: Neck: normal visual inspection, full ROM, no lymphadenopathy and trachea midline Chest: Chest palpation & inspection: normal inspection of the chest Resp: Effort & Inspection: normal respiratory effort Auscultation: clear to auscultation bilaterally Cardio: Palpation: normal PMI Rate: regular rate Rhythm: regular rhythm Heart sounds: S1 normal heart sound present and S2 normal heart sound present Peripheral pulses: Peripheral pulses 2+ throughout GI: Inspection: normal to inspection Auscultation: normal bowel sounds Rectal Exam: deferred : General: Yes no CVA tenderness Urinary Catheter: Urinary Catheter: patent and draining and urine clear Back/Spine/Pelvis: Back: no CVA tenderness Cervical Spine: cervical ROM normal Skin: General skin exam: normal color Lesions: no lesions Rashes: no rashes Trauma: no lacerations or abrasions Wounds: no wounds Hair: normal Nails: normal Other: Average balding male Neuro: General: oriented to person and oriented to place Cognition (Neuro): normal cognition Extrem: General: normal to inspection Right upper extremity: normal to inspection and shoulder/upper arm Left upper extremity: normal to inspection and shoulder/upper arm Right lower extremity: normal to inspection Left lower extremity: normal to inspection Psych: Affect: normal affect Attitude: cooperative Other: Patient was agitated in the emergency. Objective Data Vital Signs Vital Signs: Vital Signs - 24 hr 10/02/25 16:00 10/02/25 20:00 10/02/25 20:00 Temperature 99.0 F Pulse Rate 83 87 87 Respiratory Rate 18 18 Blood Pressure 120/72 Pulse Oximetry 90 90 Oxygen Delivery Room Air 10/02/25 20:00 10/03/25 00:00 Temperature Pulse Rate 101 H 63 Respiratory Rate Blood Pressure Pulse Oximetry Oxygen Delivery Intake/Output Intake/Output: Intake & Output 09/30/25 10/01/25 10/02/25 10/03/25 23:59 23:59 23:59 23:59 Intake Total 519 849 7680 Output Total 800 800 550 Balance -500 -134 822 Meds/Results Medications: Active Medications Generic Name Dose Route Start Last Admin Trade Name Freq PRN Reason Stop Dose Admin Acetaminophen 650 mg 09/29/25 00:48 Acetaminophen 325 Mg Tablet PO Q4H PRN Mild Pain (1-3) or Fever Atorvastatin Calcium 20 mg 09/29/25 09:00 09/29/25 11:14 Atorvastatin 20 Mg Tablet PO Not Given On Hold: 09/29/25 12:11 DAILY REMI Bacitracin 1 applic 09/29/25 04:13 Bacitracin Ointment 15 Gm Tube TOPICAL Q12H PRN Wound Care Dexamethasone Sodium Phosphate 10 mg 10/01/25 14:55 10/03/25 02:55 Dexamethasone Sod Phos Inj 10 Mg/Ml 1 Ml Vial IV PUSH 10/05/25 02:56 10 mg Q6H REMI Administration Diazepam 5 mg 09/30/25 16:42 Diazepam Inj (*Crx) 10 Mg/2 Ml Syringe IV PUSH ONCE PRN MRI Diphenhydramine HCl 25 mg 09/30/25 03:51 10/02/25 15:18 Diphenhydramine Hcl Inj 50 Mg/Ml Vial IV PUSH 25 mg Q4H PRN Administration anxiety Fluoxetine HCl 20 mg 09/29/25 09:00 09/29/25 11:15 Fluoxetine Hcl 20 Mg Capsule BY MOUTH Not Given On Hold: 09/29/25 12:11 DAILY REMI Levetiracetam 500 mg in 100 mls @ 400 mls/hr 09/29/25 09:00 10/02/25 21:30 Keppra Iv IVPB 400 mls/hr Q12HR REMI Administration Acyclovir Sodium 800 mg/ 266 mls @ 250.091 mls/hr 10/01/25 16:00 10/03/25 04:00 Dextrose IVPB 250 mls/hr Q12H REMI Administration Ampicillin Sodium 2 gm/ Sodium 100 mls @ 200 mls/hr 10/01/25 15:00 10/03/25 03:15 Chloride IVPB 200 mls/hr Q6H REMI Administration Ceftriaxone Sodium 2 gm/ 100 mls @ 200 mls/hr 10/02/25 13:15 10/02/25 21:00 Sodium Chloride IVPB 200 mls/hr Q12HR REMI Administration Vancomycin HCl 1,500 mg in 500 mls @ 250 mls/hr 10/03/25 14:00 Vancomycin 1,500 Mg/Ns 500 Ml IVPB Q24H REMI Memantine 10 mg 09/29/25 09:00 09/29/25 11:15 Memantine 10 Mg Tablet PO Not Given On Hold: 09/29/25 12:11 Q12HR REMI Ondansetron HCl 4 mg 09/29/25 00:48 Ondansetron Inj 4 Mg/2 Ml Vial IV PUSH Q4H PRN Nausea Pantoprazole Sodium 40 mg 09/29/25 09:00 09/29/25 11:15 Pantoprazole 40 Mg Tablet PO Not Given On Hold: 09/29/25 12:11 Q12HR REMI Quetiapine Fumarate 12.5 mg 10/03/25 07:21 Quetiapine Fumarate 12.5 Mg Tablet PO Q8H PRN Agitation Trazodone HCl 25 mg 10/03/25 07:19 Trazodone Hcl 25 Mg Tablet PO HS PRN Insomnia Radiology Results: ITS Impressions Head CT 09/29/25 07:21 IMPRESSION: 1. Probable subarachnoid hemorrhage right frontal lobe. Recommend short interval follow-up repeat scan. Brain MRI 10/01/25 12:25 IMPRESSION: 1. Mild hyperenhancement of the meninges, and mildly thickened meninges adjacent to the left temporal lobe suspicious for meningitis or other inflammatory/infiltrative meningeal process. 2. No acute ischemic event, mass or hemorrhage. 3. Mild to moderately severe paranasal sinus disease. Labs Labs: Laboratory Results - last 24 hr 10/02/25 10/03/25 08:10 04:54 WBC 9.3 19.2 H RBC 4.24 L 3.80 L Hgb 12.7 L 11.4 L Hct 38.3 L 34.4 L MCV 90.3 90.5 MCH 30.0 30.0 MCHC 33.2 33.1 RDW 11.7 11.6 Plt Count 286 294 MPV 10.1 10.7 H Immature Gran % (Auto) 0.3 0.8 H Neut % (Auto) 84.5 H 89.6 H Lymph % (Auto) 14.1 L 6.8 L [place] % (Auto) 1.0 L 2.7 Eos % (Auto) 0.0 0.0 Baso % (Auto) 0.1 L 0.1 L Lymph # (Auto) 1.31 1.30 [place] # (Auto) 0.1 0.5 Eos # (Auto) 0.0 0.0 Baso # (Auto) 0.0 0.0 Abs Immat Gran (auto) 0.03 0.16 H Absolute Neuts (auto) 7.9 H 17.2 H Absolute Nucleated RBC 0.000 0.000 Nucleated RBC % 0.0 0.0 Sodium 139 140 Potassium 4.2 4.1 Chloride 102 107 Carbon Dioxide 25 27 Anion Gap 12 6 BUN 29 H 33 H Creatinine 1.08 0.94 Estim Creat Clear Calc Not Reportable Not Reportable Estimated GFR > 60 > 60 Glucose 167 H 146 H Calcium 9.4 9.1 Total Bilirubin 0.7 0.5 AST 31 34 ALT 14 16 Alkaline Phosphatase 121 109 Total Protein 8.0 7.3 Albumin 4.0 3.8 Quality VTE Prophylaxis VTE prophylaxis: mechanical ordered
[2025-10-03] MEDS: cefTRIAXone 2 GM in SODIUM CHLORIDE 0.9% IV 100 ML 200 ML IVPB ×2 (10:10→21:38)
[2025-10-03] MEDS: levETIRAcetam 500MG/NACL 100ML 500 MG/100 ML BAG 400 MG IVPB ×2 (10:51→21:17)
[2025-10-03 11:11] VITALS: BMI 10.0
[2025-10-03] MEDS: VANCOMYCIN 1,500 MG/NS 500 ML 1,500 MG/500 ML BAG 250 MG IVPB (14:28)
[2025-10-03 19:00] VITALS: BP 98/60
[2025-10-03 20:00] VITALS: PULSE 59; RESP 18; TEMP 36.9; O2SAT 95
[2025-10-03] MEDS: QUEtiapine FUMARATE 12.5 MG TABLET PO (20:41)
[2025-10-03] MEDS: HALOPERIDOL LACTATE 5 MG/ML VIAL 2.5 MG IM (22:27)
[2025-10-04] MEDS: AMPICILLIN SODIUM 2 GM in SODIUM CHLORIDE 0.9% IV 100 ML 200 ML IVPB ×4 (03:29→22:32)
[2025-10-04] MEDS: dexAMETHasone SOD PHOS INJ 10 MG/ML 1 ML VIAL IV PUSH ×4 (03:29→21:47)
[2025-10-04 04:01] VITALS: BP 93/55; PULSE 56; RESP 20; TEMP 36.7; O2SAT 95
[2025-10-04] MEDS: ACYCLOVIR SODIUM IVPB 800 MG in DEXTROSE 5% IN WATER 250 ML 250 MG IVPB ×2 (04:07→18:21)
[2025-10-04 06:35] LABS: Hematocrit 33.0 % (42.0-52.0); Hemoglobin 10.8 g/dL (14.0-18.0); Immature Granulocyte Percent A 0.8 % (0-0.5); Lymphocytes Absolute Auto 0.99 K/mm3 (0.9-3.2); Mean Corpuscular HGB Conc 32.7 g/dl (32-36); Mean Corpuscular Hemoglobin 30.4 pg (26-34); Mean Corpuscular Volume 93.0 fl (80-100); Nucleated Red Blood Cells Absolute Auto 0.000 K/mm3 (0.0-0.012); Nucleated Red Blood Cells Perc 0.0 % (0.0-0.2); Platelet Count Result 264 k/mm3 (150-375); Red Blood Count 3.55 M/mm3 (4.6-6.20); White Blood Count 14.5 K/mm3 (4.5-10.0)
[2025-10-04 07:01] LABS: Alanine Aminotransferase 17 U/L (6-50); Albumin Level 3.5 g/dL (3.5-5.1); Alkaline Phosphatase 89 U/L (38-126); Anion Gap 5 mmol/L (4-12); Aspartate Amino Transferase 44 U/L (17-59); Bilirubin,Total 0.5 mg/dL (0.2-1.3); Blood Urea Nitrogen 36 mg/dL (9-20); Calcium 8.7 mg/dL (8.4-10.2); Carbon Dioxide 27 mmol/L (22-30); Chloride 110 mmol/L (98-107); Estimated Glomerular Filt Rate > 60; Glucose 192 mg/dL (65-110); Potassium 4.5 mmol/L (3.4-5.0); Sodium 142 mmol/L (137-145); Total Protein 6.7 g/dL (6.3-8.2)
--- NOTE | 2025-10-04 07:18 | PM.IMPN2 ---
Assessment and Plan Assessment and Plan (1) Meningitis: Code(s): G03.9 - Meningitis, unspecified Status: Acute (2) Witnessed seizure-like activity: Code(s): R56.9 - Unspecified convulsions Status: Acute (3) Dementia: Qualifiers: Dementia behavioral or psychological symptom: without behavioral, psychotic, or mood disturbance or anxiety Dementia severity: severe Dementia type: unspecified type Qualified Code(s): F03.C0 - Unspecified dementia, severe, without behavioral disturbance, psychotic disturbance, mood disturbance, and anxiety Code(s): F03.90 - Unspecified dementia, unspecified severity, without behavioral disturbance, psychotic disturbance, mood disturbance, and anxiety Status: Acute (4) Seizure: Code(s): R56.9 - Unspecified convulsions Status: Acute Plan 89-year-old male with past medical history of severe dementia and is only orientated to himself baseline presented to the ER via ambulance from home/memory care facility after he experienced an episode of visualized tremor. Patient was very agitated in the ER. Patient is DNR. received Keppra Haldol in the ER. Neurology was consulted. CT head shows Probable subarachnoid hemorrhage right frontal lobe. I called the daughter over the phone who is the power of commonwealth attorney. She is requesting further workup which includes MRI, but also at the same time does not want very aggressive measures which would include possible transfer to a higher level care with neurosurgery involvement. 1. Altered mental status/seizure: - CT head shows possible subarachnoid hemorrhage in right frontal lobe - Telemetry - Seizure/fall precautions - Continue with Keppra IV - EEG: Abnormal record due to the presence of bihemispheric slow activity with intermittent periods of decrement in the background rhythm ,these abnormalities are suggestive of organic or metabolic encephalopathy or neuro degenerative process in addition to the possibility of postictal state,clinical correlation recommended. There is no evidence of active paroxysmal activity. - MRI brain: Mildly thickened meninges suspicious for meningitis or other inflammatory/infiltrative meningeal process, No acute ischemic event, mass or hemorrhage. - Neurology consult - Continue at home medications - Speech evaluation - on Minced/moist diet - No antiplatelet, anticoagulant for now 2. Meningitis - see above - Brain MRI: Mild hyperenhancement of the meninges, and mildly thickened meninges adjacent to the left temporal lobe suspicious for meningitis or other inflammatory/infiltrative meningeal process, No acute ischemic event, mass or hemorrhage. - Empiric treatment started: Empiric treatment started: Ampicillin 2gm q6hr, ceftriaxone 2 g q.12 hours, vancomycin Q 20 hours, Acyclovir 800mg q 12hr, Dex 10mg q6hr - discussed case with daughter at length, does not wish to proceed with lumbar puncture at this time, only once empiric treatment of meningitis - ID consulted for further recommendations - Monitor Cr closely - Could consider serial MRI to evaluate temporal lobe process - Continue IV abx - Upon discharge, will need IV Meropenem and Acyclovir 3. DVT prophylaxis: SCDs 4. Code status: DNR 5. Disposition: Pending improvement, poor prognosis overall Subjective Date/time seen: 10/04/25 07:18 Interval history: 89-year-old male patient who has severe dementia and is only orientated to himself baseline. The patient was brought into the emergency room via ambulance from home the [facility] care facility after he experienced an episode of visualized tremors. 10/04/2025 Patient examined in bed. Moved to separate room for isolation precautions. Remains a&ox1 which is baseline. WBC downtrending after starting glucocorticoids yesterday. No major electrolyte imbalance. Received 1 dose Haldol last night for agitation. Has been started on Trazodone qHS prn for agitation. Working on placement to facility upon discharge given need for IV antibiotics - working closely with care coordination. Otherwise patient is stable - continue IV abx at this time. Review of Systems Review of Systems: ROS unobtainable: Yes unobtainable due to medical condition and unobtainable due to mental status Exam Narrative: GENERAL: Lethargic HEAD: [Normocephalic EYES: Anicteric sclera ENT: Dry mucous membrane NECK: Supple. CHEST: Clear to auscultation, no added sounds heard HEART: Regular rate and rhythm ABDOMEN: Soft, nondistended EXTREMITIES: No edema SKIN: Warm, dry, no rash. NEURO: Patient is very lethargic Const: General: cooperative, comfortable, no acute distress, well developed, Physically active, average body habitus and well nourished Nutritional Appearance: average body habitus and well nourished Orientation/consciousness: oriented to person and oriented to place Other: Patient is thin and only orientated to self. HENMT: Head: normal to inspection, No palpable skull fracture present, normocephalic, atraumatic and abrasion Ears: hearing grossly normal bilaterally Other: He is very hard of hearing Eyes: General: appearance normal, both eyes and all related structures Alignment and Position: alignment normal Periorbital: periorbital findings normal Eyelids: eyelids normal Neck: Neck: normal visual inspection, full ROM, no lymphadenopathy and trachea midline Chest: Chest palpation & inspection: normal inspection of the chest Resp: Effort & Inspection: normal respiratory effort Auscultation: clear to auscultation bilaterally Cardio: Palpation: normal PMI Rate: regular rate Rhythm: regular rhythm Heart sounds: S1 normal heart sound present and S2 normal heart sound present Peripheral pulses: Peripheral pulses 2+ throughout GI: Inspection: normal to inspection Auscultation: normal bowel sounds Rectal Exam: deferred : General: Yes no CVA tenderness Urinary Catheter: Urinary Catheter: patent and draining and urine clear Back/Spine/Pelvis: Back: no CVA tenderness Cervical Spine: cervical ROM normal Skin: General skin exam: normal color Lesions: no lesions Rashes: no rashes Trauma: no lacerations or abrasions Wounds: no wounds Hair: normal Nails: normal Other: Average balding male Neuro: General: oriented to person and oriented to place Cognition (Neuro): normal cognition Extrem: General: normal to inspection Right upper extremity: normal to inspection and shoulder/upper arm Left upper extremity: normal to inspection and shoulder/upper arm Right lower extremity: normal to inspection Left lower extremity: normal to inspection Psych: Affect: normal affect Attitude: cooperative Other: Patient was agitated in the emergency. Objective Data Vital Signs Vital Signs: Vital Signs - 24 hr 10/03/25 08:00 10/03/25 08:00 10/03/25 08:00 Temperature 97.2 F L Pulse Rate 115 H 62 Respiratory Rate 20 Blood Pressure 113/54 L Pulse Oximetry 97 Oxygen Delivery Room Air 10/03/25 19:00 10/03/25 20:00 10/04/25 04:01 Temperature 98.4 F 98.1 F Pulse Rate 59 L 56 L Respiratory Rate 18 20 Blood Pressure 98/60 L 93/55 L Pulse Oximetry 95 95 Oxygen Delivery Intake/Output Intake/Output: Intake & Output 10/01/25 10/02/25 10/03/25 10/04/25 23:59 23:59 23:59 23:59 Intake Total 666 1572 1492 Output Total 800 550 Balance -134 1022 1492 Meds/Results Medications: Active Medications Generic Name Dose Route Start Last Admin Trade Name Freq PRN Reason Stop Dose Admin Acetaminophen 650 mg 09/29/25 00:48 Acetaminophen 325 Mg Tablet PO Q4H PRN Mild Pain (1-3) or Fever Atorvastatin Calcium 20 mg 09/29/25 09:00 09/29/25 11:14 Atorvastatin 20 Mg Tablet PO Not Given On Hold: 09/29/25 12:11 DAILY REMI Bacitracin 1 applic 09/29/25 04:13 Bacitracin Ointment 15 Gm Tube TOPICAL Q12H PRN Wound Care Dexamethasone Sodium Phosphate 10 mg 10/01/25 14:55 10/04/25 03:29 Dexamethasone Sod Phos Inj 10 Mg/Ml 1 Ml Vial IV PUSH 10/05/25 02:56 10 mg Q6H REMI Administration Diazepam 5 mg 09/30/25 16:42 Diazepam Inj (*Crx) 10 Mg/2 Ml Syringe IV PUSH ONCE PRN MRI Diphenhydramine HCl 25 mg 09/30/25 03:51 10/03/25 20:35 Diphenhydramine Hcl Inj 50 Mg/Ml Vial IV PUSH 25 mg Q4H PRN Administration anxiety Fluoxetine HCl 20 mg 09/29/25 09:00 09/29/25 11:15 Fluoxetine Hcl 20 Mg Capsule BY MOUTH Not Given On Hold: 09/29/25 12:11 DAILY REMI Levetiracetam 500 mg in 100 mls @ 400 mls/hr 09/29/25 09:00 10/03/25 21:17 Keppra Iv IVPB 400 mls/hr Q12HR REMI Administration Acyclovir Sodium 800 mg/ 266 mls @ 250.091 mls/hr 10/01/25 16:00 10/04/25 04:07 Dextrose IVPB 250 mls/hr Q12H REMI Administration Ampicillin Sodium 2 gm/ Sodium 100 mls @ 200 mls/hr 10/01/25 15:00 10/04/25 03:29 Chloride IVPB 200 mls/hr Q6H REMI Administration Ceftriaxone Sodium 2 gm/ 100 mls @ 200 mls/hr 10/02/25 13:15 10/03/25 21:38 Sodium Chloride IVPB 200 mls/hr Q12HR REMI Administration Vancomycin HCl 1,500 mg in 500 mls @ 250 mls/hr 10/03/25 14:00 10/03/25 14:28 Vancomycin 1,500 Mg/Ns 500 Ml IVPB 250 mls/hr Q24H REMI Administration Memantine 10 mg 09/29/25 09:00 09/29/25 11:15 Memantine 10 Mg Tablet PO Not Given On Hold: 09/29/25 12:11 Q12HR REMI Ondansetron HCl 4 mg 09/29/25 00:48 Ondansetron Inj 4 Mg/2 Ml Vial IV PUSH Q4H PRN Nausea Pantoprazole Sodium 40 mg 09/29/25 09:00 09/29/25 11:15 Pantoprazole 40 Mg Tablet PO Not Given On Hold: 09/29/25 12:11 Q12HR REMI Quetiapine Fumarate 12.5 mg 10/03/25 07:21 10/03/25 20:41 Quetiapine Fumarate 12.5 Mg Tablet PO 12.5 mg Q8H PRN Administration Agitation Trazodone HCl 25 mg 10/03/25 07:19 10/03/25 20:41 Trazodone Hcl 25 Mg Tablet PO 25 mg HS PRN Administration Insomnia Radiology Results: ITS Impressions Head CT 09/29/25 07:21 IMPRESSION: 1. Probable subarachnoid hemorrhage right frontal lobe. Recommend short interval follow-up repeat scan. Brain MRI 10/01/25 12:25 IMPRESSION: 1. Mild hyperenhancement of the meninges, and mildly thickened meninges adjacent to the left temporal lobe suspicious for meningitis or other inflammatory/infiltrative meningeal process. 2. No acute ischemic event, mass or hemorrhage. 3. Mild to moderately severe paranasal sinus disease. Labs Labs: Laboratory Results - last 24 hr 10/04/25 05:39 WBC 14.5 H RBC 3.55 L Hgb 10.8 L Hct 33.0 L MCV 93.0 MCH 30.4 MCHC 32.7 RDW 11.9 Plt Count 264 MPV 10.6 H Immature Gran % (Auto) 0.8 H Neut % (Auto) 89.5 H Lymph % (Auto) 6.8 L [place] % (Auto) 2.8 Eos % (Auto) 0.0 Baso % (Auto) 0.1 L Lymph # (Auto) 0.99 [place] # (Auto) 0.4 Eos # (Auto) 0.0 Baso # (Auto) 0.0 Abs Immat Gran (auto) 0.11 H Absolute Neuts (auto) 13.0 H Absolute Nucleated RBC 0.000 Nucleated RBC % 0.0 Sodium 142 Potassium 4.5 Chloride 110 H Carbon Dioxide 27 Anion Gap 5 BUN 36 H Creatinine 1.02 Estim Creat Clear Calc Not Reportable Estimated GFR > 60 Glucose 192 H Calcium 8.7 Total Bilirubin 0.5 AST 44 ALT 17 Alkaline Phosphatase 89 Total Protein 6.7 Albumin 3.5 Quality VTE Prophylaxis VTE prophylaxis: mechanical ordered
[2025-10-04] MEDS: levETIRAcetam 500MG/NACL 100ML 500 MG/100 ML BAG 400 MG IVPB ×2 (08:43→21:47)
[2025-10-04] MEDS: cefTRIAXone 2 GM in SODIUM CHLORIDE 0.9% IV 100 ML 200 ML IVPB ×2 (10:27→22:05)
[2025-10-04 14:00] VITALS: BP 130/59; PULSE 54; RESP 16; TEMP 36.1; O2SAT 98
[2025-10-04] MEDS: VANCOMYCIN 1,500 MG/NS 500 ML 1,500 MG/500 ML BAG 250 MG IVPB (16:00)
[2025-10-04] MEDS: QUEtiapine FUMARATE 12.5 MG TABLET PO (19:33)
[2025-10-04] MEDS: HALOPERIDOL LACTATE 5 MG/ML VIAL 2.5 MG IM (21:14)
[2025-10-04 21:25] VITALS: BP 100/78; PULSE 57; RESP 18; TEMP 37.5; O2SAT 100
[2025-10-05] MEDS: dexAMETHasone SOD PHOS INJ 10 MG/ML 1 ML VIAL IV PUSH (02:39)
[2025-10-05] MEDS: AMPICILLIN SODIUM 2 GM in SODIUM CHLORIDE 0.9% IV 100 ML 200 ML IVPB ×2 (02:39→09:18)
[2025-10-05] MEDS: ACYCLOVIR SODIUM IVPB 800 MG in DEXTROSE 5% IN WATER 250 ML 250 MG IVPB (03:40)
[2025-10-05] MEDS: HALOPERIDOL LACTATE 5 MG/ML VIAL 2.5 MG IM (05:06)
[2025-10-05 05:49] VITALS: BP 92/47; PULSE 51; RESP 19; TEMP 37.3; O2SAT 94
[2025-10-05 06:42] LABS: Hematocrit 31.6 % (42.0-52.0); Hemoglobin 10.4 g/dL (14.0-18.0); Immature Granulocyte Percent A 0.8 % (0-0.5); Lymphocytes Absolute Auto 0.84 K/mm3 (0.9-3.2); Mean Corpuscular HGB Conc 32.9 g/dl (32-36); Mean Corpuscular Hemoglobin 30.2 pg (26-34); Mean Corpuscular Volume 91.9 fl (80-100); Nucleated Red Blood Cells Absolute Auto 0.000 K/mm3 (0.0-0.012); Nucleated Red Blood Cells Perc 0.0 % (0.0-0.2); Platelet Count Result 242 k/mm3 (150-375); Red Blood Count 3.44 M/mm3 (4.6-6.20); White Blood Count 11.9 K/mm3 (4.5-10.0)
[2025-10-05 07:13] LABS: Alanine Aminotransferase 23 U/L (6-50); Albumin Level 3.3 g/dL (3.5-5.1); Alkaline Phosphatase 81 U/L (38-126); Anion Gap 6 mmol/L (4-12); Aspartate Amino Transferase 43 U/L (17-59); Bilirubin,Total 0.5 mg/dL (0.2-1.3); Blood Urea Nitrogen 30 mg/dL (9-20); Calcium 8.3 mg/dL (8.4-10.2); Carbon Dioxide 27 mmol/L (22-30); Chloride 106 mmol/L (98-107); Estimated Glomerular Filt Rate > 60; Glucose 173 mg/dL (65-110); Potassium 3.7 mmol/L (3.4-5.0); Sodium 139 mmol/L (137-145); Total Protein 6.4 g/dL (6.3-8.2)
--- NOTE | 2025-10-05 07:43 | P.PNIM_ITS ---
Assessment and Plan Assessment and Plan (1) Meningitis: Code(s): G03.9 - Meningitis, unspecified Status: Acute (2) Witnessed seizure-like activity: Code(s): R56.9 - Unspecified convulsions Status: Acute (3) Dementia: Qualifiers: Dementia behavioral or psychological symptom: without behavioral, psychotic, or mood disturbance or anxiety Dementia severity: severe Dementia type: unspecified type Qualified Code(s): F03.C0 - Unspecified dementia, severe, without behavioral disturbance, psychotic disturbance, mood disturbance, and anxiety Code(s): F03.90 - Unspecified dementia, unspecified severity, without behavioral disturbance, psychotic disturbance, mood disturbance, and anxiety Status: Acute (4) Seizure: Code(s): R56.9 - Unspecified convulsions Status: Acute Plan 89-year-old male with past medical history of severe dementia and is only orientated to himself baseline presented to the ER via ambulance from home/memory care facility after he experienced an episode of visualized tremor. Patient was very agitated in the ER. Patient is DNR. received Keppra Haldol in the ER. Neurology was consulted. CT head shows Probable subarachnoid hemorrhage right frontal lobe. I called the daughter over the phone who is the power of staff attorney. She is requesting further workup which includes MRI, but also at the same time does not want very aggressive measures which would include possible transfer to a higher level care with neurosurgery involvement. 1. Altered mental status/seizure: - CT head shows possible subarachnoid hemorrhage in right frontal lobe - Telemetry - Seizure/fall precautions - Continue with Keppra IV - EEG: Abnormal record due to the presence of bihemispheric slow activity with intermittent periods of decrement in the background rhythm ,these abnormalities are suggestive of organic or metabolic encephalopathy or neuro degenerative process in addition to the possibility of postictal state,clinical correlation recommended. There is no evidence of active paroxysmal activity. - MRI brain: Mildly thickened meninges suspicious for meningitis or other inflammatory/infiltrative meningeal process, No acute ischemic event, mass or hemorrhage. - Neurology consult - Continue at home medications - Speech evaluation - on Minced/moist diet - No antiplatelet, anticoagulant for now 2. Meningitis - see above - Brain MRI: Mild hyperenhancement of the meninges, and mildly thickened meninges adjacent to the left temporal lobe suspicious for meningitis or other inflammatory/infiltrative meningeal process, No acute ischemic event, mass or hemorrhage. - Empiric treatment started: Empiric treatment started: Ampicillin 2gm q6hr, ceftriaxone 2 g q.12 hours, vancomycin Q 20 hours, Acyclovir 800mg q 12hr, Dex 10mg q6hr - discussed case with daughter at length, does not wish to proceed with lumbar puncture at this time, only once empiric treatment of meningitis - ID consulted for further recommendations - Monitor Cr closely - Could consider serial MRI to evaluate temporal lobe process - Transition to PO valtrex given difficulty maintaining IV 3. DVT prophylaxis: SCDs 4. Code status: DNR 5. Disposition: Pending improvement, poor prognosis overall Subjective Date/time seen: 10/05/25 07:43 Interval history: 89-year-old male patient who has severe dementia and is only orientated to himself baseline. The patient was brought into the emergency room via ambulance from home the [facility] care facility after he experienced an episode of visualized tremors. 10/05/2025 Patient examined in bed. Discussed with ID pharmacist, will transition to p.o. Valtrex given that the patient continually pulls out IVs. In order to have placement to facility he needs to be off restrains (which he is at this point) and does not require a sitter. Will attempt to remove sitter and hopefully with transition to PO medicine we can look for discharge in the next few days. Working with ID regarding management of this meningitis. Review of Systems Review of Systems: ROS unobtainable: Yes unobtainable due to medical condition and unobtainable due to mental status Exam Narrative: GENERAL: Lethargic HEAD: [Normocephalic EYES: Anicteric sclera ENT: Dry mucous membrane NECK: Supple. CHEST: Clear to auscultation, no added sounds heard HEART: Regular rate and rhythm ABDOMEN: Soft, nondistended EXTREMITIES: No edema SKIN: Warm, dry, no rash. NEURO: Patient is very lethargic Const: General: cooperative, comfortable, no acute distress, well developed, Physically active, average body habitus and well nourished Nutritional Appearance: average body habitus and well nourished Orientation/consciousness: oriented to person and oriented to place Other: Patient is thin and only orientated to self. HENMT: Head: normal to inspection, No palpable skull fracture present, normocephalic, atraumatic and abrasion Ears: hearing grossly normal bilaterally Other: He is very hard of hearing Eyes: General: appearance normal, both eyes and all related structures Alignment and Position: alignment normal Periorbital: periorbital findings normal Eyelids: eyelids normal Neck: Neck: normal visual inspection, full ROM, no lymphadenopathy and trachea midline Chest: Chest palpation & inspection: normal inspection of the chest Resp: Effort & Inspection: normal respiratory effort Auscultation: clear to auscultation bilaterally Cardio: Palpation: normal PMI Rate: regular rate Rhythm: regular rhythm Heart sounds: S1 normal heart sound present and S2 normal heart sound present Peripheral pulses: Peripheral pulses 2+ throughout GI: Inspection: normal to inspection Auscultation: normal bowel sounds Rectal Exam: deferred : General: Yes no CVA tenderness Urinary Catheter: Urinary Catheter: patent and draining and urine clear Back/Spine/Pelvis: Back: no CVA tenderness Cervical Spine: cervical ROM normal Skin: General skin exam: normal color Lesions: no lesions Rashes: no rashes Trauma: no lacerations or abrasions Wounds: no wounds Hair: normal Nails: normal Other: Average balding male Neuro: General: oriented to person and oriented to place Cognition (Neuro): normal cognition Extrem: General: normal to inspection Right upper extremity: normal to inspection and shoulder/upper arm Left upper extremity: normal to inspection and shoulder/upper arm Right lower extremity: normal to inspection Left lower extremity: normal to inspection Psych: Affect: normal affect Attitude: cooperative Other: Patient was agitated in the emergency. Objective Data Vital Signs Vital Signs: Vital Signs - 24 hr 10/04/25 08:40 10/04/25 14:00 10/04/25 20:00 Temperature 96.9 F L Pulse Rate 54 L Respiratory Rate 16 Blood Pressure 130/59 L Pulse Oximetry 98 Oxygen Delivery Room Air Room Air 10/04/25 21:25 10/05/25 05:49 Temperature 99.5 F 99.2 F Pulse Rate 57 L 51 L Respiratory Rate 18 19 Blood Pressure 100/78 92/47 L Pulse Oximetry 100 94 Oxygen Delivery Intake/Output Intake/Output: Intake & Output 10/02/25 10/03/25 10/04/25 10/05/25 23:59 23:59 23:59 23:59 Intake Total 1572 1692 2112 240 Output Total 550 Balance 1022 1692 2112 240 Meds/Results Medications: Active Medications Generic Name Dose Route Start Last Admin Trade Name Freq PRN Reason Stop Dose Admin Acetaminophen 650 mg 09/29/25 00:48 Acetaminophen 325 Mg Tablet PO Q4H PRN Mild Pain (1-3) or Fever Atorvastatin Calcium 20 mg 09/29/25 09:00 09/29/25 11:14 Atorvastatin 20 Mg Tablet PO Not Given On Hold: 09/29/25 12:11 DAILY REMI Bacitracin 1 applic 09/29/25 04:13 Bacitracin Ointment 15 Gm Tube TOPICAL Q12H PRN Wound Care Diazepam 5 mg 09/30/25 16:42 Diazepam Inj (*Crx) 10 Mg/2 Ml Syringe IV PUSH ONCE PRN MRI Diphenhydramine HCl 25 mg 09/30/25 03:51 10/04/25 19:33 Diphenhydramine Hcl Inj 50 Mg/Ml Vial IV PUSH 25 mg Q4H PRN Administration anxiety Fluoxetine HCl 20 mg 09/29/25 09:00 09/29/25 11:15 Fluoxetine Hcl 20 Mg Capsule BY MOUTH Not Given On Hold: 09/29/25 12:11 DAILY REMI Haloperidol Lactate 2.5 mg 10/04/25 21:07 10/05/25 05:06 Haloperidol Lactate 5 Mg/Ml Vial IM 2.5 mg Q6H PRN Administration Delirium Levetiracetam 500 mg in 100 mls @ 400 mls/hr 09/29/25 09:00 10/04/25 21:47 Keppra Iv IVPB 400 mls/hr Q12HR REMI Administration Acyclovir Sodium 800 mg/ 266 mls @ 250.091 mls/hr 10/01/25 16:00 10/05/25 03:40 Dextrose IVPB 250 mls/hr Q12H REMI Administration Ampicillin Sodium 2 gm/ Sodium 100 mls @ 200 mls/hr 10/01/25 15:00 10/05/25 02:39 Chloride IVPB 200 mls/hr Q6H REMI Administration Ceftriaxone Sodium 2 gm/ 100 mls @ 200 mls/hr 10/02/25 13:15 10/04/25 22:05 Sodium Chloride IVPB 200 mls/hr Q12HR REMI Administration Vancomycin HCl 1,500 mg in 500 mls @ 250 mls/hr 10/04/25 14:00 10/04/25 18:34 Vancomycin 1,500 Mg/Ns 500 Ml IVPB Infused Q18H REMI Infusion Memantine 10 mg 09/29/25 09:00 09/29/25 11:15 Memantine 10 Mg Tablet PO Not Given On Hold: 09/29/25 12:11 Q12HR REMI Ondansetron HCl 4 mg 09/29/25 00:48 Ondansetron Inj 4 Mg/2 Ml Vial IV PUSH Q4H PRN Nausea Pantoprazole Sodium 40 mg 09/29/25 09:00 09/29/25 11:15 Pantoprazole 40 Mg Tablet PO Not Given On Hold: 09/29/25 12:11 Q12HR REMI Quetiapine Fumarate 12.5 mg 10/03/25 07:21 10/04/25 19:33 Quetiapine Fumarate 12.5 Mg Tablet PO 12.5 mg Q8H PRN Administration Agitation Trazodone HCl 25 mg 10/03/25 07:19 10/04/25 19:33 Trazodone Hcl 25 Mg Tablet PO 25 mg HS PRN Administration Insomnia Radiology Results: ITS Impressions Head CT 09/29/25 07:21 IMPRESSION: 1. Probable subarachnoid hemorrhage right frontal lobe. Recommend short interval follow-up repeat scan. Brain MRI 10/01/25 12:25 IMPRESSION: 1. Mild hyperenhancement of the meninges, and mildly thickened meninges adjacent to the left temporal lobe suspicious for meningitis or other inflammatory/infiltrative meningeal process. 2. No acute ischemic event, mass or hemorrhage. 3. Mild to moderately severe paranasal sinus disease. Labs Labs: Laboratory Results - last 24 hr 10/04/25 10/05/25 12:31 05:50 WBC 11.9 H RBC 3.44 L Hgb 10.4 L Hct 31.6 L MCV 91.9 MCH 30.2 MCHC 32.9 RDW 11.8 Plt Count 242 MPV 10.5 H Immature Gran % (Auto) 0.8 H Neut % (Auto) 89.7 H Lymph % (Auto) 7.1 L [place] % (Auto) 2.4 L Eos % (Auto) 0.0 Baso % (Auto) 0.0 L Lymph # (Auto) 0.84 L [place] # (Auto) 0.3 Eos # (Auto) 0.0 Baso # (Auto) 0.0 Abs Immat Gran (auto) 0.10 H Absolute Neuts (auto) 10.6 H Absolute Nucleated RBC 0.000 Nucleated RBC % 0.0 Sodium 139 Potassium 3.7 Chloride 106 Carbon Dioxide 27 Anion Gap 6 BUN 30 H Creatinine 0.85 Estim Creat Clear Calc Not Reportable Estimated GFR > 60 Glucose 173 H Calcium 8.3 L Total Bilirubin 0.5 AST 43 ALT 23 Alkaline Phosphatase 81 Total Protein 6.4 Albumin 3.3 L Vancomycin Trough 11.1 Quality VTE Prophylaxis VTE prophylaxis: mechanical ordered
[2025-10-05] MEDS: levETIRAcetam 500MG/NACL 100ML 500 MG/100 ML BAG 400 MG IVPB ×2 (08:52→20:28)
[2025-10-05] MEDS: cefTRIAXone 2 GM in SODIUM CHLORIDE 0.9% IV 100 ML 200 ML IVPB (10:10)
[2025-10-05] MEDS: VANCOMYCIN 1,500 MG/NS 500 ML 1,500 MG/500 ML BAG 250 MG IVPB (10:44)
--- NOTE | 2025-10-05 11:36 | PCOTNOTE ---
Patient unable to participate at this time. Per RN, Patient had medication last night , having increased difficulty with arousal . Try back this afternoon.
[2025-10-05 14:00] VITALS: BP 112/60; PULSE 50; RESP 16; TEMP 36.2; O2SAT 97
--- NOTE | 2025-10-05 15:05 | WPDINFPN2 ---
Progress Note: A&P Assessment and Plan (1) Meningitis: Code(s): G03.9 - Meningitis, unspecified Status: Acute Assessment and Plan: #Possible meningitis. Possible seizure with patient with underlying dementia. Question of subarachnoid bleed process in addition to the possibility of meningeal enhancement around the temporal lobes. HSV would be a consideration although he has responded very quickly to antiviral medication. VZV could also be a another consideration. Bacterial would seem less likely although we do not have a lumbar puncture, per patient's family's wishes, to decipher possible infectious etiologies. #Underlying dementia. Plan: d/w pt's daughter, [place] via phone Will transition to oral valacyclovir after discussing risk/benefits of further work up, expected improvement. Would hold on repeat MRI unless any clinical deterioration Would follow on oral valacyclovir 24 hours. Stop iv abx. d/w pt's RN, sitter, Pharmacy. Patient was interviewed and examined with the aid of a HIPAA protected telemedicine interface. With patient's/family's consent. Patient was examined while he was admitted to [facility] in [facility] and I was in my office in [place], [place] Subjective Date/time seen: 10/05/25 15:05 Interval history: had been wakeful and over weekend. was pulling out IV and getting up; had to get Haldol, so more somnolent today. no rash. Creatinine stable. Exam Const: Other: Somnelent. sitter at bedside. d/w RN--did get haldol. Has been awake during the day; eating when fed. . Objective Data Vital Signs Vital Signs: Vital Signs - 24 hr 10/04/25 20:00 10/04/25 21:25 10/05/25 05:49 Temperature 37.5 C 37.3 C Pulse Rate 57 L 51 L Respiratory Rate 18 19 Blood Pressure 100/78 92/47 L Pulse Oximetry 100 94 Oxygen Delivery Room Air 10/05/25 09:48 10/05/25 14:00 Temperature 36.2 C L Pulse Rate 50 L Respiratory Rate 16 Blood Pressure 112/60 Pulse Oximetry 97 Oxygen Delivery Room Air Intake/Output Intake/Output: Intake & Output 10/02/25 10/03/25 10/04/25 10/05/25 23:59 23:59 23:59 23:59 Intake Total 1572 1692 2312 1086 Output Total 550 Balance 1022 1692 2312 1086 Meds/Results Medications: Active Medications Generic Name Dose Route Start Last Admin Trade Name Freq PRN Reason Stop Dose Admin Acetaminophen 650 mg 09/29/25 00:48 Acetaminophen 325 Mg Tablet PO Q4H PRN Mild Pain (1-3) or Fever Atorvastatin Calcium 20 mg 09/29/25 09:00 09/29/25 11:14 Atorvastatin 20 Mg Tablet PO Not Given On Hold: 09/29/25 12:11 DAILY REMI Bacitracin 1 applic 09/29/25 04:13 Bacitracin Ointment 15 Gm Tube TOPICAL Q12H PRN Wound Care Diazepam 5 mg 09/30/25 16:42 Diazepam Inj (*Crx) 10 Mg/2 Ml Syringe IV PUSH ONCE PRN MRI Diphenhydramine HCl 25 mg 09/30/25 03:51 10/04/25 19:33 Diphenhydramine Hcl Inj 50 Mg/Ml Vial IV PUSH 25 mg Q4H PRN Administration anxiety Fluoxetine HCl 20 mg 09/29/25 09:00 09/29/25 11:15 Fluoxetine Hcl 20 Mg Capsule BY MOUTH Not Given On Hold: 09/29/25 12:11 DAILY REMI Haloperidol Lactate 2.5 mg 10/04/25 21:07 10/05/25 05:06 Haloperidol Lactate 5 Mg/Ml Vial IM 2.5 mg Q6H PRN Administration Delirium Levetiracetam 500 mg in 100 mls @ 400 mls/hr 09/29/25 09:00 10/05/25 09:07 Keppra Iv IVPB Infused Q12HR REMI Infusion Memantine 10 mg 09/29/25 09:00 09/29/25 11:15 Memantine 10 Mg Tablet PO Not Given On Hold: 09/29/25 12:11 Q12HR REMI Ondansetron HCl 4 mg 09/29/25 00:48 Ondansetron Inj 4 Mg/2 Ml Vial IV PUSH Q4H PRN Nausea Pantoprazole Sodium 40 mg 09/29/25 09:00 09/29/25 11:15 Pantoprazole 40 Mg Tablet PO Not Given On Hold: 09/29/25 12:11 Q12HR REMI Quetiapine Fumarate 12.5 mg 10/03/25 07:21 10/04/25 19:33 Quetiapine Fumarate 12.5 Mg Tablet PO 12.5 mg Q8H PRN Administration Agitation Trazodone HCl 25 mg 10/03/25 07:19 10/04/25 19:33 Trazodone Hcl 25 Mg Tablet PO 25 mg HS PRN Administration Insomnia Radiology Results: ITS Impressions Head CT 09/29/25 07:21 IMPRESSION: 1. Probable subarachnoid hemorrhage right frontal lobe. Recommend short interval follow-up repeat scan. Brain MRI 10/01/25 12:25 IMPRESSION: 1. Mild hyperenhancement of the meninges, and mildly thickened meninges adjacent to the left temporal lobe suspicious for meningitis or other inflammatory/infiltrative meningeal process. 2. No acute ischemic event, mass or hemorrhage. 3. Mild to moderately severe paranasal sinus disease. Labs Labs: Laboratory Results - last 24 hr 10/05/25 05:50 WBC 11.9 H RBC 3.44 L Hgb 10.4 L Hct 31.6 L MCV 91.9 MCH 30.2 MCHC 32.9 RDW 11.8 Plt Count 242 MPV 10.5 H Immature Gran % (Auto) 0.8 H Neut % (Auto) 89.7 H Lymph % (Auto) 7.1 L [place] % (Auto) 2.4 L Eos % (Auto) 0.0 Baso % (Auto) 0.0 L Lymph # (Auto) 0.84 L [place] # (Auto) 0.3 Eos # (Auto) 0.0 Baso # (Auto) 0.0 Abs Immat Gran (auto) 0.10 H Absolute Neuts (auto) 10.6 H Absolute Nucleated RBC 0.000 Nucleated RBC % 0.0 Sodium 139 Potassium 3.7 Chloride 106 Carbon Dioxide 27 Anion Gap 6 BUN 30 H Creatinine 0.85 Estim Creat Clear Calc Not Reportable Estimated GFR > 60 Glucose 173 H Calcium 8.3 L Total Bilirubin 0.5 AST 43 ALT 23 Alkaline Phosphatase 81 Total Protein 6.4 Albumin 3.3 L
[2025-10-05 20:00] VITALS: PULSE 50; RESP 16; O2SAT 97
[2025-10-05 21:58] VITALS: BP 117/71; PULSE 59; RESP 18; TEMP 36.9; O2SAT 97
[2025-10-05] MEDS: QUEtiapine FUMARATE 12.5 MG TABLET PO (22:05)
--- NOTE | 2025-10-05 23:23 | PC.NURSE ---
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 when leaving the med room, I heard the chair alarm going off in [id number]. He is a high fall risk, dementia, patient. He is impulsive, and all staff was busy with two other patients who are impulsive so unfortunately nobody was in his room within a few minutes of the fall. It was unwitnessed, but I saw him standing up out of the chair and he had a skin tear on his left upper arm. RN Vita Pleitez, and PCT Rita Roach were alerted, and post fall huddle was completed. supervisor color making was notified of the fall.
[2025-10-06 05:39] LABS: Hematocrit 33.4 % (42.0-52.0); Hemoglobin 11.1 g/dL (14.0-18.0); Immature Granulocyte Percent A 0.6 % (0-0.5); Lymphocytes Absolute Auto 3.06 K/mm3 (0.9-3.2); Mean Corpuscular HGB Conc 33.2 g/dl (32-36); Mean Corpuscular Hemoglobin 30.3 pg (26-34); Mean Corpuscular Volume 91.3 fl (80-100); Nucleated Red Blood Cells Absolute Auto 0.000 K/mm3 (0.0-0.012); Nucleated Red Blood Cells Perc 0.0 % (0.0-0.2); Platelet Count Result 233 k/mm3 (150-375); Red Blood Count 3.66 M/mm3 (4.6-6.20); White Blood Count 14.4 K/mm3 (4.5-10.0)
[2025-10-06 06:00] VITALS: BP 144/81; PULSE 74; RESP 18; TEMP 36.4; O2SAT 98
[2025-10-06 06:00] LABS: Alanine Aminotransferase 27 U/L (6-50); Albumin Level 3.4 g/dL (3.5-5.1); Alkaline Phosphatase 80 U/L (38-126); Anion Gap 6 mmol/L (4-12); Aspartate Amino Transferase 46 U/L (17-59); Bilirubin,Total 0.7 mg/dL (0.2-1.3); Blood Urea Nitrogen 24 mg/dL (9-20); Calcium 8.6 mg/dL (8.4-10.2); Carbon Dioxide 25 mmol/L (22-30); Chloride 106 mmol/L (98-107); Estimated Glomerular Filt Rate > 60; Glucose 88 mg/dL (65-110); Potassium 3.7 mmol/L (3.4-5.0); Sodium 137 mmol/L (137-145); Total Protein 6.6 g/dL (6.3-8.2)
--- NOTE | 2025-10-06 07:34 | P.PNIM_ITS ---
Assessment and Plan Assessment and Plan (1) Meningitis: Code(s): G03.9 - Meningitis, unspecified Status: Acute (2) Witnessed seizure-like activity: Code(s): R56.9 - Unspecified convulsions Status: Acute (3) Dementia: Qualifiers: Dementia type: unspecified type Dementia severity: severe Dementia behavioral or psychological symptom: without behavioral, psychotic, or mood disturbance or anxiety Qualified Code(s): F03.C0 - Unspecified dementia, severe, without behavioral disturbance, psychotic disturbance, mood disturbance, and anxiety Code(s): F03.90 - Unspecified dementia, unspecified severity, without behavioral disturbance, psychotic disturbance, mood disturbance, and anxiety Status: Acute (4) Seizure: Code(s): R56.9 - Unspecified convulsions Status: Acute Plan 89-year-old male with past medical history of severe dementia and is only orientated to himself baseline presented to the ER via ambulance from home/memory care facility after he experienced an episode of visualized tremor. Patient was very agitated in the ER. Patient is DNR. received Keppra Haldol in the ER. Neurology was consulted. CT head shows Probable subarachnoid hemorrhage right frontal lobe. I called the daughter over the phone who is the power of privacy attorney. She is requesting further workup which includes MRI, but also at the same time does not want very aggressive measures which would include possible transfer to a higher level care with neurosurgery involvement. 1. Altered mental status/seizure: - CT head shows possible subarachnoid hemorrhage in right frontal lobe - Telemetry - Seizure/fall precautions - Continue with Keppra IV - EEG: Abnormal record due to the presence of bihemispheric slow activity with intermittent periods of decrement in the background rhythm ,these abnormalities are suggestive of organic or metabolic encephalopathy or neuro degenerative process in addition to the possibility of postictal state,clinical correlation recommended. There is no evidence of active paroxysmal activity. - MRI brain: Mildly thickened meninges suspicious for meningitis or other inflammatory/infiltrative meningeal process, No acute ischemic event, mass or hemorrhage. - Neurology consult - Continue at home medications - Speech evaluation - on Minced/moist diet - No antiplatelet, anticoagulant for now 2. Meningitis - see above - Brain MRI: Mild hyperenhancement of the meninges, and mildly thickened meninges adjacent to the left temporal lobe suspicious for meningitis or other inflammatory/infiltrative meningeal process, No acute ischemic event, mass or hemorrhage. - Empiric treatment started: Empiric treatment started: Ampicillin 2gm q6hr, ceftriaxone 2 g q.12 hours, vancomycin Q 20 hours, Acyclovir 800mg q 12hr, Dex 10mg q6hr - discussed case with daughter at length, does not wish to proceed with lumbar puncture at this time, only once empiric treatment of meningitis - ID consulted for further recommendations - Monitor Cr closely - Could consider serial MRI to evaluate temporal lobe process - Transition to PO valtrex given difficulty maintaining IV 3. DVT prophylaxis: SCDs 4. Code status: DNR 5. Disposition: Pending improvement, poor prognosis overall Subjective Date/time seen: 10/06/25 07:34 Review of Systems Review of Systems: ROS unobtainable: Yes unobtainable due to medical condition and unobtainable due to mental status Exam Narrative: GENERAL: Lethargic HEAD: [Normocephalic EYES: Anicteric sclera ENT: Dry mucous membrane NECK: Supple. CHEST: Clear to auscultation, no added sounds heard HEART: Regular rate and rhythm ABDOMEN: Soft, nondistended EXTREMITIES: No edema SKIN: Warm, dry, no rash. NEURO: Patient is very lethargic Const: General: cooperative, comfortable, no acute distress, well developed, Physically active, average body habitus and well nourished Nutritional Appearance: average body habitus and well nourished Orientation/consciousness: oriented to person and oriented to place Other: Patient is thin and only orientated to self. HENMT: Head: normal to inspection, No palpable skull fracture present, norm ocephalic, atraumatic and abrasion Ears: hearing grossly normal bilaterally Other: He is very hard of hearing Eyes: General: appearance normal, both eyes and all related structures Alignment and Position: alignment normal Periorbital: periorbital findings normal Eyelids: eyelids normal Neck: Neck: normal visual inspection, full ROM, no lymphadenopathy and trachea midline Chest: Chest palpation & inspection: normal inspection of the chest Resp: Effort & Inspection: normal respiratory effort Auscultation: clear to auscultation bilaterally Cardio: Palpation: normal PMI Rate: regular rate Rhythm: regular rhythm Heart sounds: S1 normal heart sound present and S2 normal heart sound present Peripheral pulses: Peripheral pulses 2+ throughout GI: Inspection: normal to inspection Auscultation: normal bowel sounds Rectal Exam: deferred : General: Yes no CVA tenderness Urinary Catheter: Urinary Catheter: patent and draining and urine clear Back/Spine/Pelvis: Back: no CVA tenderness Cervical Spine: cervical ROM normal Skin: General skin exam: normal color Lesions: no lesions Rashes: no rashes Trauma: no lacerations or abrasions Wounds: no wounds Hair: normal Nails: normal Other: Average balding male Neuro: General: oriented to person and oriented to place Cognition (Neuro): normal cognition Extrem: General: normal to inspection Right upper extremity: normal to inspection and shoulder/upper arm Left upper extremity: normal to inspection and shoulder/upper arm Right lower extremity: normal to inspection Left lower extremity: normal to inspection Psych: Affect: normal affect Attitude: cooperative Other: Patient was agitated in the emergency. Objective Data Vital Signs Vital Signs: Vital Signs - 24 hr 10/05/25 09:48 10/05/25 14:00 10/05/25 20:00 Temperature 97.1 F L Pulse Rate 50 L 50 L Respiratory Rate 16 16 Blood Pressure 112/60 Pulse Oximetry 97 97 Oxygen Delivery Room Air Room Air 10/05/25 21:58 10/06/25 06:00 Temperature 98.4 F 97.5 F L Pulse Rate 59 L 74 Respiratory Rate 18 18 Blood Pressure 117/71 144/81 H Pulse Oximetry 97 98 Oxygen Delivery Intake/Output Intake/Output: Intake & Output 10/03/25 10/04/25 10/05/25 10/06/25 23:59 23:59 23:59 23:59 Intake Total 1692 2312 1236 Balance 1692 2312 1236 Meds/Results Medications: Active Medications Generic Name Dose Route Start Last Admin Trade Name Freq PRN Reason Stop Dose Admin Acetaminophen 650 mg 09/29/25 00:48 Acetaminophen 325 Mg Tablet PO Q4H PRN Mild Pain (1-3) or Fever Atorvastatin Calcium 20 mg 09/29/25 09:00 09/29/25 11:14 Atorvastatin 20 Mg Tablet PO Not Given On Hold: 09/29/25 12:11 DAILY REMI Bacitracin 1 applic 09/29/25 04:13 Bacitracin Ointment 15 Gm Tube TOPICAL Q12H PRN Wound Care Diazepam 5 mg 09/30/25 16:42 Diazepam Inj (*Crx) 10 Mg/2 Ml Syringe IV PUSH ONCE PRN MRI Diphenhydramine HCl 25 mg 09/30/25 03:51 10/06/25 02:40 Diphenhydramine Hcl Inj 50 Mg/Ml Vial IV PUSH 25 mg Q4H PRN Administration anxiety Fluoxetine HCl 20 mg 09/29/25 09:00 09/29/25 11:15 Fluoxetine Hcl 20 Mg Capsule BY MOUTH Not Given On Hold: 09/29/25 12:11 DAILY REMI Haloperidol Lactate 2.5 mg 10/04/25 21:07 10/05/25 05:06 Haloperidol Lactate 5 Mg/Ml Vial IM 2.5 mg Q6H PRN Administration Delirium Levetiracetam 500 mg in 100 mls @ 400 mls/hr 09/29/25 09:00 10/05/25 20:43 Keppra Iv IVPB Infused Q12HR REMI Infusion Memantine 10 mg 09/29/25 09:00 09/29/25 11:15 Memantine 10 Mg Tablet PO Not Given On Hold: 09/29/25 12:11 Q12HR REMI Ondansetron HCl 4 mg 09/29/25 00:48 Ondansetron Inj 4 Mg/2 Ml Vial IV PUSH Q4H PRN Nausea Pantoprazole Sodium 40 mg 09/29/25 09:00 09/29/25 11:15 Pantoprazole 40 Mg Tablet PO Not Given On Hold: 09/29/25 12:11 Q12HR REMI Quetiapine Fumarate 12.5 mg 10/03/25 07:21 10/05/25 22:05 Quetiapine Fumarate 12.5 Mg Tablet PO 12.5 mg Q8H PRN Administration Agitation Trazodone HCl 25 mg 10/03/25 07:19 10/05/25 22:05 Trazodone Hcl 25 Mg Tablet PO 25 mg HS PRN Administration Insomnia Valacyclovir HCl 1,000 mg 10/05/25 16:55 10/06/25 05:46 Valacyclovir Hcl 500 Mg Tablet PO 10/15/25 06:01 1,000 mg Q8HR REMI Administration Radiology Results: ITS Impressions Head CT 09/29/25 07:21 IMPRESSION: 1. Probable subarachnoid hemorrhage right frontal lobe. Recommend short inte rval follow-up repeat scan. Brain MRI 10/01/25 12:25 IMPRESSION: 1. Mild hyperenhancement of the meninges, and mildly thickened meninges adjacent to the left temporal lobe suspicious for meningitis or other inflammatory/infiltrative meningeal process. 2. No acute ischemic event, mass or hemorrhage. 3. Mild to moderately severe paranasal sinus disease. Labs Labs: Laboratory Results - last 24 hr 10/06/25 05:12 WBC 14.4 H RBC 3.66 L Hgb 11.1 L Hct 33.4 L MCV 91.3 MCH 30.3 MCHC 33.2 RDW 11.7 Plt Count 233 MPV 10.6 H Immature Gran % (Auto) 0.6 H Neut % (Auto) 70.8 Lymph % (Auto) 21.3 [place] % (Auto) 6.8 Eos % (Auto) 0.4 Baso % (Auto) 0.1 L Lymph # (Auto) 3.06 [place] # (Auto) 1.0 H Eos # (Auto) 0.1 Baso # (Auto) 0.0 Abs Immat Gran (auto) 0.09 H Absolute Neuts (auto) 10.1 H Absolute Nucleated RBC 0.000 Nucleated RBC % 0.0 Sodium 137 Potassium 3.7 Chloride 106 Carbon Dioxide 25 Anion Gap 6 BUN 24 H Creatinine 0.82 Estim Creat Clear Calc Not Reportable Estimated GFR > 60 Glucose 88 Calcium 8.6 Total Bilirubin 0.7 AST 46 ALT 27 Alkaline Phosphatase 80 Total Protein 6.6 Albumin 3.4 L Quality VTE Prophylaxis VTE prophylaxis: mechanical ordered
[2025-10-06] MEDS: levETIRAcetam 500MG/NACL 100ML 500 MG/100 ML BAG 400 MG IVPB (08:48)
[2025-10-06 09:03] VITALS: RESP 18; O2SAT 98
--- NOTE | 2025-10-06 10:53 | P.DS_ITS ---
DS: Admitting Diagnosis Discharge Date 10/06/25 Admitting Diagnosis Meningitis DS: Discharge Diagnosis Discharge Diagnosis (1) Meningitis: Code(s): G03.9 - Meningitis, unspecified Status: Acute (2) Witnessed seizure-like activity: Code(s): R56.9 - Unspecified convulsions Status: Acute (3) Dementia: Qualifiers: Dementia behavioral or psychological symptom: without behavioral, psychotic, or mood disturbance or anxiety Dementia severity: severe Dementia type: unspecified type Qualified Code(s): F03.C0 - Unspecified dementia, severe, without behavioral disturbance, psychotic disturbance, mood disturbance, and anxiety Code(s): F03.90 - Unspecified dementia, unspecified severity, without behavioral disturbance, psychotic disturbance, mood disturbance, and anxiety Status: Acute (4) Seizure: Code(s): R56.9 - Unspecified convulsions Status: Acute DS: Summary Hospital Course Reason for hospitalization: Seizure Hospital Course: The patient is an 89-year-old male with advanced dementia (baseline oriented to self only) who was admitted from a memory care facility on 09/29/25 after a witnessed episode of tremors and shaking concerning for seizure activity. On arrival to the emergency department, he was significantly agitated and required pharmacologic management. Initial evaluation included laboratory studies showing mild chronic anemia and no significant metabolic derangements, and a non- contrast head CT that was preliminarily negative but later suggested a probable small right frontal subarachnoid hemorrhage. He was started on levetiracetam and placed on seizure precautions, with neurology consultation obtained. An EEG performed on 09/29/25 demonstrated bihemispheric slowing with intermittent background attenuation, consistent with an underlying organic or metabolic encephalopathy, neurodegenerative process, or possible postictal state, without evidence of epileptiform or paroxysmal activity. Further workup with brain MRI revealed mild meningeal hyperenhancement and thickening adjacent to the left temporal lobe, raising concern for meningitis or another inflammatory meningeal process, without evidence of acute infarction or hemorrhage. Given these findings and the clinical context, the patient was treated empirically for meningitis, including coverage for possible viral etiologies. Lumbar puncture was deferred per family wishes due to the patient?s DNR status and goals of care. Infectious Disease was consulted, and antimicrobial therapy was later narrowed with transition from intravenous antivirals to oral valacyclovir due to difficulty maintaining IV access. Throughout hospitalization, the patient experienced fluctuating mental status and intermittent agitation, likely multifactorial in the setting of severe dementia, suspected [employer] infection or inflammation, medication effects, and possible postictal state. Psychiatry was consulted for behavioral management, and scheduled antipsychotics were not recommended; agitation was managed with non-pharmacologic measures and limited PRN medications. Over time, he became more alert and remained hemodynamically stable, tolerated a modified diet, and showed no further witnessed seizure activity. Remained at his baseline mentation status and eventually was stable enough to remove restraints and sitters. Discussed with ID who recommended changing IV abx to Valtrex given need to change medications to PO in order to find a proper discharge location. His memory care facility instructed us that they would be able to accept him back if not on IV abx or requiring a sitter/restraints. At this point the patient was stable for discharge back to his facility. Time Spent with Patient Time attestation: Total time spent providing and/or coordinating discharge services: 29 Exam Narrative: GENERAL: Somnelent HEAD: Normocephalic EYES: Anicteric sclera ENT: Dry mucous membrane NECK: Supple. CHEST: Clear to auscultation, no added sounds heard HEART: Regular rate and rhythm ABDOMEN: Soft, nondistended EXTREMITIES: No edema SKIN: Warm, dry, no rash. NEURO: Patient is very lethargic Const: Other: Patient is thin and only orientated to self. HENMT: Other: He is very hard of hearing Skin: Other: Average balding male Psych: Other: Patient was agitated in the emergency. DS: Data Data Completed and Pending Labs on day of discharge: Labs from last 24 hours 10/06/25 05:12 WBC 14.4 H RBC 3.66 L Hgb 11.1 L Hct 33.4 L MCV 91.3 MCH 30.3 MCHC 33.2 RDW 11.7 Plt Count 233 MPV 10.6 H Immature Gran % (Auto) 0.6 H Neut % (Auto) 70.8 Lymph % (Auto) 21.3 [place] % (Auto) 6.8 Eos % (Auto) 0.4 Baso % (Auto) 0.1 L Lymph # (Auto) 3.06 [place] # (Auto) 1.0 H Eos # (Auto) 0.1 Baso # (Auto) 0.0 Abs Immat Gran (auto) 0.09 H Absolute Neuts (auto) 10.1 H Absolute Nucleated RBC 0.000 Nucleated RBC % 0.0 Sodium 137 Potassium 3.7 Chloride 106 Carbon Dioxide 25 Anion Gap 6 BUN 24 H Creatinine 0.82 Estim Creat Clear Calc Not Reportable Estimated GFR > 60 Glucose 88 Calcium 8.6 Total Bilirubin 0.7 AST 46 ALT 27 Alkaline Phosphatase 80 Total Protein 6.6 Albumin 3.4 L Discharge Plan Discharge Attending physician on discharge: Saad Hogan Consulting providers: Aditya Ahuja; Marco Garber; Hakan Garcia; Corin Duong Discharging Clinician: Marco Garber Anticipated Discharge Date/Time: 10/06/25 10:46 Patient Disposition: ND Intermediate/Asst Living Activity: as tolerated Diet: regular Discharge Instructions: Discharge disposition: [facility] Take medications as prescribed. You will be prescribed Valtrex 1000mg to be taken every 8 hours until 10/15/2025. Monitor blood pressures Take caution while standing, rising, or moving Change positions slowly taking a break between each position change If you standing feel dizzy sit back down and take a break Encouraged to continue with yearly vaccinations Return to the emergency department if you develop sudden shortness of breath, chest pain, nausea, vomiting, upset stomach or intractable diarrhea Return to the emergency department if you develop fever greater than 101.5 Follow-up with the primary care physician within 1-2 weeks Thank you for [facility] for your healthcare needs Patient Instructions: Antibiotic Form Patient Language: Hebrew Stand Alone Forms: General Discharge Information Follow-up/Referrals: Dimitri Hawley MD [Primary Care Provider, Family Practice] Discharge Medications: New valacyclovir [Valtrex] 500 mg Tablet 1,000 mg PO Q8HR Qty: 30 0RF Continued memantine 10 mg tablet 10 mg PO BID Qty: 180 1RF atorvastatin 20 mg tablet 20 mg PO DAILY Qty: 90 3RF bacitracin zinc 500 unit/gram ointment 1 applic topical BID PRN (Reason: wound care) Qty: 28.4 0RF fluoxetine 20 mg capsule See Rx Instructions .ROUTE .COMPLEX Qty: 90 1RF Dose Instruction: TAKE 1 CAPSULE BY MOUTH DAILY Rx Instructions: TAKE 1 CAPSULE BY MOUTH DAILY omeprazole 40 mg capsule,delayed release(DR/EC) 40 mg PO BID Qty: 180 1RF Discontinued ICaps AREDS [id number] Capsule 1 cap PO BID quetiapine 25 mg tablet 25 mg PO QHS Other Ambulatory Orders: OT Outpatient Eval and Treat (ONCE) Timeframe: 20251106 Location: Determined by Patient Ordered By: Marco Garber PT Outpatient Eval and Treat (ONCE) Timeframe: 20251106 Location: Determined by Patient Ordered By: Marco Garber Date of admission: 09/30/25 10:10 Primary Care Provider: Dimitri Hawley Admitting Provider: Crescencio Handy Attending physician on admission: Crescencio Handy Condition: Stable Quality VTE Prophylaxis VTE prophylaxis: mechanical ordered
[2025-10-06 12:42] LABS: SARS-CoV-2 RNA PCR Negative (Negative)
[2025-10-06 14:00] VITALS: BP 104/77; PULSE 67; RESP 16; TEMP 36.4; O2SAT 95
== END 2025-10-06 17:15 | DRG 97 ==
LOC: ANHED 23:35 → ANH3MEDSUR 09-29 01:52
PROVIDERS: Nurse Practitioner; Physician Assistant; Admitting Provider Internal Medicine; Emergency Provider Student in an Organized Health Care Education/Training Program; PCP Family Medicine; Visit Provider Internal Medicine
DX: G03.9 Meningitis, unspecified (principal); I60.9 Nontraumatic subarachnoid hemorrhage, unspecified; D64.9 Anemia, unspecified; E78.5 Hyperlipidemia, unspecified; F03.90 Unspecified dementia, unspecified severity, without behavioral disturbance, psychotic disturbance, mood disturbance, and anxiety; F32.A Depression, unspecified; I10 Essential (primary) hypertension; K21.9 Gastro-esophageal reflux disease without esophagitis; R56.9 Unspecified convulsions; Z66 Do not resuscitate; Z11.52 Encounter for screening for COVID-19; Z98.41 Cataract extraction status, right eye; Z96.1 Presence of intraocular lens; Z87.891 Personal history of nicotine dependence
CPT/HCPCS: 36415; 70450; 70553; 80048; 80053; 80202; 81001; 83605; 83735; 85025; 85610; 85730; 87635; 92526; 92610; 93005; 95816; 96365; 96372; 96375; 97162; 97165; 97530; 97535; 99285; A9270; A9577; G0378; J0133; J0290; J0696; J1100; J1200; J1630; J1953; J2359; J2405; J3373; J7060